=== PATIENT | male | born 1950 | race Caucasian/White ===

== ENCOUNTER 2020-01-12 16:18 | Inpatient (IN) | payer MEDICARE, OTHER, SELFPAY ==
[2020-01-12] VITALS (21 sets, daily range): BP systolic 162–216; BP diastolic 71–101; PULSE 75–97; RESP 12–32; TEMP 36.6–38.1; O2SAT 93–99; BMI 25.0
--- NOTE | 2020-01-12 16:24 | DI.RAD.S_ITS ---
PROCEDURE: XR CHEST 1V INDICATIONS: suspected sepsis TECHNIQUE: One view of the chest was acquired. COMPARISON: [facility], , CHEST 1 VIEW, 09/07/2012, 14:35. FINDINGS: Surgical changes and devices: Median sternotomy wires are present with unchanged appearance of fractured superior wires. Surgical clips in the mediastinum compatible with prior revascularization procedure. Lungs and pleura: Mild diffuse interstitial prominence and streaky left perihilar and left basilar opacities. No focal consolidations. No pleural effusions or pneumothorax. Mediastinum: Mediastinal contours appear stable. Heart size is normal. Bones and chest wall: No suspicious bony lesions. Overlying soft tissues appear unremarkable. IMPRESSION: Mild diffuse interstitial prominence with streaky left perihilar and left basilar opacities. Findings may represent atelectasis, although early developing airspace disease/pneumonia or aspiration may have a similar appearance. No focal consolidation. Dictated by: Rene Hardin M.D. on 01/12/2020 at 18:01 Approved by: Rene Hardin M.D. on 01/12/2020 at 18:03
--- NOTE | 2020-01-12 16:43 | ED_ITS ---
HPI - Fever <Sanjeev Montemayor MD - Last Filed: 01/27/20 09:11> General Chief Complaint: Fever Stated Complaint: fever / back pain Time Seen by Provider: 01/12/20 16:28 Source: patient and EMS Mode of arrival: EMS Limitations: no limitations History of Present Illness HPI Narrative: The patient was diagnosed with bladder cancer March 2019. He underwent prostatectomy, and neobladder was formed. Over last week he has developed dark colored urine. Since then he has developed right mid back pain. He has no abdominal pain. He has no nausea vomiting. He denies dental pain. He has no difficulty making a stream of urine. He developed fever today. His his oral intake is adequate. He has no nausea vomiting. He is drinking water. He denies headache, sore throat or cough. Additionally he has a history of hypertension, hyperlipidemia, diabetes, and coronary artery disease. He has few she undergone cardiac bypass. He is a former smoker, but quit about 25 years ago. He is visiting locally, his urologist and his medical records are located in [place], [place]. He has been in this region for several weeks. He was recently in [place]. He is hospitalist 2 days there for back pain. CT of the chest, abdomen pelvis reassuring, there are no acute findings. Related Data Home Medications Medication Instructions Recorded Confirmed Xarelto 2.5 mg PO BID 01/12/20 01/12/20 aspirin [Aspir-81] 81 mg PO DAILY 01/12/20 01/12/20 atorvastatin 40 mg PO BEDTIME 01/12/20 01/12/20 carvedilol 12.5 mg PO BID 01/12/20 01/12/20 cilostazol 100 mg PO BID 01/12/20 01/12/20 diltiazem HCl 120 mg PO DAILY 01/12/20 01/12/20 docusate calcium 240 mg PO BID 01/12/20 01/12/20 ezetimibe 10 mg PO DAILY 01/12/20 01/12/20 valsartan 80 mg PO DAILY 01/12/20 01/12/20 Previous Rx's Medication Instructions Recorded acetaminophen 650 mg PO Q6HR #30 tab 01/17/20 ampicillin 2 gram PO Q4H #248 cap 01/17/20 bisacodyl 10 mg MO DAILY #30 ea 01/17/20 gabapentin [Neurontin] 300 mg PO TID #90 cap 01/17/20 lidocaine 1 ea TOPICAL BEDTIME #30 ea 01/17/20 lidocaine 1 ea TOPICAL DAILY #30 ea 01/17/20 methocarbamol 750 mg PO QID PRN #120 tab 01/17/20 oxycodone 5 - 10 mg PO Q4HR PRN #15 tab 01/17/20 polyethylene glycol 3350 17 gm PO DAILY #30 ea 01/17/20 Allergies Allergy/AdvReac Type Severity Reaction Status Date / Time [id number] Reductase AdvReac Mild Rash Verified 01/12/20 16:28 Inhibitor Review of Systems <Sanjeev Montemayor MD - Last Filed: 01/27/20 09:11> Review of Systems ROS Unobtainable: All systems reviewed & are unremarkable except as noted in HPI and below Constitutional Constitutional: Denies chills, Reports fever(s), Denies lethargy and Denies weakness Eyes Comments: No complaints ENT Ears, Nose, Mouth, and Throat: Denies dizziness Comments: No complaints Cardiovascular Cardiovascular: Denies chest pain, Denies pedal edema and Denies dyspnea Respiratory Respiratory: Denies chest congestion, Denies cough and Denies dyspnea Gastrointestinal Gastrointestinal: Denies abdominal pain, Reports constipation (about 6 days), Denies diarrhea, Denies nausea and Denies vomiting Genitourinary Comments: Hematuria. No genital pain. No urgency or retention. Musculoskeletal Musculoskeletal: Reports back pain Integumentary/Breasts Skin/Breast: Denies pruritus, Denies erythema, Denies rash and Denies wounds Neurologic Neurologic: Denies confusion, Denies dizziness and Denies weakness Psychiatric Psychiatric: Denies anxiety and Denies confusion Patient History <Sanjeev Montemayor MD - Last Filed: 01/27/20 09:11> Medical History (Updated 01/15/20 @ 16:25 by Sanjeev Camacho DO) Bladder cancer (Acute) Coronary artery disease (Acute) Facet arthropathy, lumbar (Acute) History of CVA (cerebrovascular accident) (Acute) Hyperlipidemia (Acute) Hypertension (Acute) Multilevel foraminal stenosis (Acute) Peripheral vascular disease (Acute) Surgical History H/O prostatectomy (Acute) History of total cystectomy (Acute) Hx of CABG (Acute) Social History household members: spouse Smoking Status: Former smoker Smoking Status: Former smoker alcohol intake frequency: 0-2 drinks per day Substance Use Type: does not use Exam <Sanjeev Montemayor MD - Last Filed: 01/27/20 09:11> Initial Vital Signs Initial Vital Signs: Vital Signs Temperature 100.6 F H 01/12/20 16:22 Pulse Rate 75 01/12/20 16:22 Respiratory Rate 24 01/12/20 16:22 Blood Pressure 193/90 H 01/12/20 16:22 Pulse Oximetry 96 01/12/20 16:22 Const General: cooperative and well developed Nutritional Appearance: well nourished HENMT Head: normal to inspection, normocephalic and atraumatic Eyes Conjunctivae: conjunctivae normal Sclera: sclerae normal Neck Neck: No lymphadenopathy and No JVD Resp Effort & Inspection: normal respiratory effort, able to speak in complete sentences, no respiratory distress and no use of accessory muscles Auscultation: clear to auscultation bilaterally, no rales, no rhonchi and no wheezes Cardio Rate: regular rate Rhythm: regular rhythm Heart Sounds: S1 normal, S2 normal, no click, no gallops, no murmurs and no rubs Pulses: normal peripheral pulses GI Inspection: non-distended Palpation: soft, no hepatosplenomegaly, No guarding, No pulsatile mass and No tender Auscultation: normal bowel sounds Back/Spine/Pelvis Back: CVA tenderness right Skin General: no rashes or lesions noted, No jaundice and No petechiae Neuro General: patient alert, patient oriented x3, gait normal and no focal motor deficits Speech: speech normal Extrem General: No calf tenderness and No edema <Henry Mejia DO - Last Filed: 01/13/20 00:06> Initial Vital Signs Initial Vital Signs: Vital Signs Temperature 100.6 F H 01/12/20 16:22 Pulse Rate 75 01/12/20 16:22 Respiratory Rate 24 01/12/20 16:22 Blood Pressure 193/90 H 01/12/20 16:22 Pulse Oximetry 96 01/12/20 16:22 Course <Sanjeev Montemayor MD - Last Filed: 01/27/20 09:11> Course Course Narrative: Clinically, the patient has pyelonephritis. He has urinary changes, fever and right back pain. A clean urine sample is not obtained, he has a neobladder and urinates into a diaper. A urine culture has been sent. IV fluids and Rocephin given. There is no suggestion of sepsis. He complains the back pain is so severe he cannot stand. There has been no acute injury associated with the back pain. Also note, he has hyponatremia. His sodium level was 136 with the recent admission at [facility]. I have discussed the situation with the hospitalist, REJI Koroma. AP CT is suggested, I ordered the CT. I have also discussed the situation with my your partner, Dr. Mejia. He will follow-up with the CT. Final disposition is pending. Orders Ordered: Discontinued Medications Acetaminophen (Tylenol) 650 mg PO Q4H PRN PRN Reason: Back Pain Last Admin: 01/15/20 13:27 Dose: 650 mg Documented by: Admin: 01/15/20 09:25 Dose: 650 mg Documented by: Admin: 01/15/20 05:34 Dose: 650 mg Documented by: Admin: 01/14/20 22:32 Dose: 650 mg Documented by: Admin: 01/14/20 18:57 Dose: 650 mg Documented by: Admin: 01/14/20 14:52 Dose: 650 mg Documented by: Admin: 01/14/20 11:00 Dose: 650 mg Documented by: Admin: 01/13/20 16:09 Dose: 650 mg Documented by: Admin: 01/13/20 11:26 Dose: 650 mg Documented by: Admin: 01/13/20 00:25 Dose: 650 mg Documented by: SACHA Acetaminophen (Tylenol) 650 mg PO Q6HR [facility] Last Admin: 01/17/20 12:50 Dose: 650 mg Documented by: Admin: 01/17/20 06:16 Dose: 650 mg Documented by: Admin: 01/17/20 00:22 Dose: 650 mg Documented by: Admin: 01/16/20 18:45 Dose: 650 mg Documented by: Admin: 01/16/20 12:12 Dose: 650 mg Documented by: Admin: 01/16/20 06:27 Dose: 650 mg Documented by: Admin: 01/16/20 00:33 Dose: 650 mg Documented by: Admin: 01/15/20 18:16 Dose: 650 mg Documented by: LAZARA Funk Hydrox/Mg Hydrox/Simethicone (Maalox Plus) 30 ml PO Q4HR PRN PRN Reason: Dyspepsia Last Admin: 01/13/20 20:54 Dose: 30 ml Documented by: SINDI Aspirin (Aspirin Ec) 81 mg PO DAILY [facility] Last Admin: 01/17/20 09:04 Dose: 81 mg Documented by: Admin: 01/16/20 08:50 Dose: 81 mg Documented by: Admin: 01/15/20 09:25 Dose: 81 mg Documented by: Admin: 01/14/20 09:14 Dose: 81 mg Documented by: Admin: 01/13/20 10:16 Dose: 81 mg Documented by: TEODORO Atorvastatin Calcium (Lipitor) 40 mg PO BEDTIME [facility] Last Admin: 01/16/20 20:35 Dose: 40 mg Documented by: Admin: 01/15/20 20:41 Dose: 40 mg Documented by: Admin: 01/14/20 20:44 Dose: 40 mg Documented by: Admin: 01/13/20 20:55 Dose: 40 mg Documented by: Admin: 01/12/20 23:25 Dose: 40 mg Documented by: MARIELA Baclofen (Lioresal) 10 mg PO TID [facility] Bisacodyl (Dulcolax) 10 mg MO NOW ONE Stop: 01/12/20 22:35 Last Admin: 01/13/20 05:35 Dose: Not Given Documented by: TEODORO Bisacodyl (Dulcolax) 10 mg MO NOW ONE Stop: 01/12/20 23:51 Last Admin: 01/13/20 02:29 Dose: Not Given Documented by: SACHA Bisacodyl (Dulcolax) 10 mg MO NOW ONE Stop: 01/13/20 05:16 Last Admin: 01/13/20 05:35 Dose: 10 mg Documented by: TEODORO Bisacodyl (Dulcolax) 10 mg MO NOW ONE Stop: 01/13/20 14:55 Last Admin: 01/13/20 16:09 Dose: 10 mg Documented by: SINDI Bisacodyl (Dulcolax) 10 mg PO NOW ONE Stop: 01/13/20 15:01 Last Admin: 01/13/20 16:09 Dose: 10 mg Documented by: SINDI Bisacodyl (Dulcolax) 10 mg MO PRN PRN PRN Reason: Constipation Last Admin: 01/14/20 14:52 Dose: 10 mg Documented by: SINDI Bisacodyl (Dulcolax) 10 mg MO DAILY [facility] Last Admin: 01/17/20 09:04 Dose: 10 mg Documented by: Admin: 01/16/20 10:11 Dose: 10 mg Documented by: Admin: 01/15/20 09:25 Dose: 10 mg Documented by: SINDI Carvedilol (Coreg) 12.5 mg PO BIDWM [facility] Last Admin: 01/17/20 09:03 Dose: 12.5 mg Documented by: Admin: 01/16/20 16:34 Dose: 12.5 mg Documented by: Admin: 01/16/20 08:48 Dose: 12.5 mg Documented by: Admin: 01/15/20 16:12 Dose: 12.5 mg Documented by: Admin: 01/15/20 09:26 Dose: 12.5 mg Documented by: Admin: 01/14/20 17:03 Dose: 12.5 mg Documented by: Admin: 01/14/20 09:14 Dose: 12.5 mg Documented by: Admin: 01/13/20 17:17 Dose: 12.5 mg Documented by: Admin: 01/13/20 08:07 Dose: 12.5 mg Documented by: Admin: 01/12/20 23:25 Dose: 12.5 mg Documented by: RHEENAN Cilostazol (Pletal) 100 mg PO BID [facility] Last Admin: 01/17/20 09:04 Dose: 100 mg Documented by: Admin: 01/16/20 20:35 Dose: 100 mg Documented by: Admin: 01/16/20 08:49 Dose: 100 mg Documented by: Admin: 01/15/20 20:43 Dose: 100 mg Documented by: Admin: 01/15/20 09:28 Dose: 100 mg Documented by: Admin: 01/14/20 20:46 Dose: 100 mg Documented by: Admin: 01/14/20 09:16 Dose: 100 mg Documented by: Admin: 01/13/20 21:05 Dose: 100 mg Documented by: Admin: 01/13/20 09:16 Dose: 100 mg Documented by: TEODORO Dextrose (D50w) 25 gm IV PRN PRN; Protocol PRN Reason: Hypoglycemia Diazepam (Valium) 5 mg PO Q6HR PRN PRN Reason: Back Pain Last Admin: 01/16/20 08:49 Dose: 5 mg Documented by: Admin: 01/16/20 02:29 Dose: 5 mg Documented by: Admin: 01/14/20 20:44 Dose: 5 mg Documented by: JERRY Diltiazem HCl (Cardizem Cd) 120 mg PO DAILY [facility] Last Admin: 01/17/20 09:04 Dose: 120 mg Documented by: Admin: 01/16/20 08:49 Dose: 120 mg Documented by: Admin: 01/15/20 09:27 Dose: 120 mg Documented by: Admin: 01/14/20 09:16 Dose: 120 mg Documented by: Admin: 01/13/20 09:16 Dose: 120 mg Documented by: TEODORO Docusate Sodium (Colace) 250 mg PO BID [facility] Last Admin: 01/15/20 10:12 Dose: Not Given Documented by: Admin: 01/14/20 20:43 Dose: 250 mg Documented by: Admin: 01/14/20 09:16 Dose: 250 mg Documented by: Admin: 01/13/20 20:55 Dose: 250 mg Documented by: Admin: 01/13/20 09:16 Dose: 250 mg Documented by: TEODORO Docusate Sodium (Colace) 100 mg PO BID [facility] Last Admin: 01/15/20 10:12 Dose: Not Given Documented by: Admin: 01/14/20 20:44 Dose: 100 mg Documented by: JERRY Docusate Sodium (Colace) 250 mg PO DAILY [facility] Last Admin: 01/17/20 09:04 Dose: 250 mg Documented by: Admin: 01/16/20 08:49 Dose: 250 mg Documented by: PRISCILLA Ezetimibe (Zetia) 10 mg PO DAILY [facility] Last Admin: 01/17/20 09:04 Dose: 10 mg Documented by: Admin: 01/16/20 08:49 Dose: 10 mg Documented by: Admin: 01/15/20 09:27 Dose: 10 mg Documented by: Admin: 01/14/20 09:16 Dose: 10 mg Documented by: Admin: 01/13/20 09:17 Dose: 10 mg Documented by: TEODORO Gabapentin (Neurontin) 300 mg PO TID [facility] Last Admin: 01/17/20 14:54 Dose: Not Given Documented by: Admin: 01/17/20 09:03 Dose: 300 mg Documented by: Admin: 01/16/20 20:37 Dose: 300 mg Documented by: Admin: 01/16/20 15:02 Dose: 300 mg Documented by: Admin: 01/16/20 08:49 Dose: 300 mg Documented by: Admin: 01/15/20 20:42 Dose: 300 mg Documented by: Admin: 01/15/20 14:54 Dose: 300 mg Documented by: Admin: 01/15/20 09:25 Dose: 300 mg Documented by: Admin: 01/14/20 20:44 Dose: 300 mg Documented by: JERRY Hydralazine HCl (Apresoline) 10 mg IV Q6HR PRN PRN Reason: Hypertension Hydromorphone HCl (Dilaudid) 1 mg IV NOW ONE Stop: 01/12/20 19:36 Last Admin: 01/12/20 19:47 Dose: 1 mg Documented by: MARLEE Hydromorphone HCl (Dilaudid) 0.5 mg IV Q4HR PRN PRN Reason: Pain, Moderate (4-6) Last Admin: 01/16/20 12:12 Dose: 0.5 mg Documented by: Admin: 01/13/20 09:13 Dose: 0.5 mg Documented by: TEODORO Hydromorphone HCl (Dilaudid) 1 mg IV Q4HR PRN PRN Reason: Pain, Severe (7-10) Last Admin: 01/15/20 16:13 Dose: 1 mg Documented by: Admin: 01/15/20 10:29 Dose: 1 mg Documented by: Admin: 01/14/20 17:43 Dose: 1 mg Documented by: Admin: 01/14/20 08:09 Dose: 1 mg Documented by: Admin: 01/13/20 13:56 Dose: 1 mg Documented by: Admin: 01/13/20 09:20 Dose: 1 mg Documented by: Admin: 01/13/20 05:33 Dose: 1 mg Documented by: Admin: 01/12/20 23:27 Dose: 1 mg Documented by: MARIELA Sodium Chloride (Normal Saline 0.9%) 1,000 mls @ 1,000 mls/hr IV BOLUS ONE Stop: 01/12/20 17:23 Last Infusion: 01/12/20 18:02 Dose: 0 mls/hr Documented by: Admin: 01/12/20 16:57 Dose: 1,000 mls/hr Documented by: NICA Sodium Chloride (Normal Saline 0.9%) 1,000 mls @ 250 mls/hr IV CONT WILBER Last Infusion: 01/12/20 22:20 Dose: 0 mls/hr Documented by: Admin: 01/12/20 18:02 Dose: 250 mls/hr Documented by: NICA Ceftriaxone Sodium/Dextrose (Rocephin) 1 gm in 50 mls @ 100 mls/hr IV NOW ONE Stop: 01/12/20 17:12 Last Infusion: 01/12/20 17:26 Dose: 0 mls/hr Documented by: Admin: 01/12/20 16:57 Dose: 100 mls/hr Documented by: NICA Sodium Chloride (Normal Saline 0.9%) 1,000 mls @ 125 mls/hr IV CONT WILBER Last Infusion: 01/13/20 19:47 Dose: 125 mls/hr Documented by: Admin: 01/13/20 07:45 Dose: 125 mls/hr Documented by: Infusion: 01/13/20 07:24 Dose: 125 mls/hr Documented by: Admin: 01/12/20 23:24 Dose: 125 mls/hr Documented by: MARIELA Piperacillin/Tazobactam/Dextrose (Zosyn) 3.375 gm in 50 mls @ 100 mls/hr IV Q8H WILBER Last Admin: 01/13/20 16:10 Dose: 100 mls/hr Documented by: Infusion: 01/13/20 08:55 Dose: 0 mls/hr Documented by: Infusion: 01/13/20 08:05 Dose: 100 mls/hr Documented by: Admin: 01/13/20 07:45 Dose: 100 mls/hr Documented by: Infusion: 01/13/20 00:50 Dose: 100 mls/hr Documented by: Admin: 01/13/20 00:20 Dose: 100 mls/hr Documented by: SACHA Ampicillin Sodium 2,000 mg/ (Sodium Chloride) 100 mls @ 200 mls/hr IV Q4H WILBER Stop: 01/19/20 21:00 Last Infusion: 01/17/20 14:27 Dose: 0 mls/hr Documented by: Admin: 01/17/20 12:51 Dose: 200 mls/hr Documented by: Infusion: 01/17/20 12:13 Dose: 0 mls/hr Documented by: Admin: 01/17/20 09:03 Dose: 200 mls/hr Documented by: Infusion: 01/17/20 04:17 Dose: 200 mls/hr Documented by: Admin: 01/17/20 03:47 Dose: 200 mls/hr Documented by: Infusion: 01/17/20 00:54 Dose: 200 mls/hr Documented by: Admin: 01/17/20 00:24 Dose: 200 mls/hr Documented by: Infusion: 01/16/20 21:04 Dose: 200 mls/hr Documented by: Admin: 01/16/20 20:34 Dose: 200 mls/hr Documented by: Infusion: 01/16/20 17:05 Dose: 0 mls/hr Documented by: Admin: 01/16/20 16:33 Dose: 200 mls/hr Documented by: Infusion: 01/16/20 15:02 Dose: 0 mls/hr Documented by: Admin: 01/16/20 13:00 Dose: 200 mls/hr Documented by: Infusion: 01/16/20 12:02 Dose: 0 mls/hr Documented by: Admin: 01/16/20 08:49 Dose: 200 mls/hr Documented by: Infusion: 01/16/20 06:41 Dose: 0 mls/hr Documented by: Admin: 01/16/20 04:27 Dose: 200 mls/hr Documented by: Infusion: 01/16/20 04:15 Dose: 0 mls/hr Documented by: Admin: 01/16/20 00:35 Dose: 200 mls/hr Documented by: Infusion: 01/15/20 21:32 Dose: 200 mls/hr Documented by: Admin: 01/15/20 20:43 Dose: 200 mls/hr Documented by: Infusion: 01/15/20 17:38 Dose: 200 mls/hr Documented by: Admin: 01/15/20 16:38 Dose: 200 mls/hr Documented by: Infusion: 01/15/20 15:30 Dose: 200 mls/hr Documented by: Admin: 01/15/20 12:13 Dose: 200 mls/hr Documented by: Infusion: 01/15/20 09:56 Dose: 200 mls/hr Documented by: Admin: 01/15/20 09:26 Dose: 200 mls/hr Documented by: Infusion: 01/15/20 04:52 Dose: 0 mls/hr Documented by: Admin: 01/15/20 04:22 Dose: 200 mls/hr Documented by: Infusion: 01/15/20 00:20 Dose: 0 mls/hr Documented by: Admin: 01/14/20 23:49 Dose: 200 mls/hr Documented by: Infusion: 01/14/20 21:24 Dose: 0 mls/hr Documented by: Admin: 01/14/20 20:45 Dose: 200 mls/hr Documented by: Infusion: 01/14/20 16:50 Dose: 0 mls/hr Documented by: Admin: 01/14/20 15:59 Dose: 200 mls/hr Documented by: Infusion: 01/14/20 15:46 Dose: 0 mls/hr Documented by: Admin: 01/14/20 12:07 Dose: 200 mls/hr Documented by: Infusion: 01/14/20 09:44 Dose: 200 mls/hr Documented by: Admin: 01/14/20 09:14 Dose: 200 mls/hr Documented by: Infusion: 01/14/20 04:54 Dose: 200 mls/hr Documented by: Admin: 01/14/20 04:24 Dose: 200 mls/hr Documented by: Infusion: 01/14/20 04:22 Dose: 200 mls/hr Documented by: Admin: 01/14/20 00:32 Dose: 200 mls/hr Documented by: Infusion: 01/13/20 21:40 Dose: 200 mls/hr Documented by: Admin: 01/13/20 21:10 Dose: 200 mls/hr Documented by: SINDI Sodium Chloride (Normal Saline 0.9%) 1,000 mls @ 100 mls/hr IV CONT WILBER Stop: 01/16/20 04:29 Last Admin: 01/15/20 18:49 Dose: 100 mls/hr Documented by: LAZARA Sodium Chloride (Normal Saline 0.9%) 1,000 mls @ 100 mls/hr IV CONT WILBER Last Admin: 01/17/20 06:21 Dose: 100 mls/hr Documented by: Infusion: 01/17/20 04:45 Dose: 100 mls/hr Documented by: Admin: 01/16/20 18:45 Dose: 100 mls/hr Documented by: GPEREZ Insulin Aspart (Novolog Flexpen) 0 unit SUBCUT ACHS WILEBR; Protocol Last Admin: 01/17/20 12:12 Dose: Not Given Documented by: Admin: 01/17/20 10:57 Dose: Not Given Documented by: Admin: 01/16/20 20:37 Dose: Not Given Documented by: Admin: 01/16/20 16:32 Dose: 1 unit Documented by: HELDER Cosigned by: LEILANI Admin: 01/16/20 12:02 Dose: Not Given Documented by: Admin: 01/16/20 08:50 Dose: Not Given Documented by: Admin: 01/15/20 20:56 Dose: Not Given Documented by: Admin: 01/15/20 16:51 Dose: Not Given Documented by: Admin: 01/15/20 12:11 Dose: Not Given Documented by: Admin: 01/15/20 09:17 Dose: Not Given Documented by: Admin: 01/14/20 21:06 Dose: Not Given Documented by: Admin: 01/14/20 16:50 Dose: Not Given Documented by: Admin: 01/14/20 12:04 Dose: Not Given Documented by: Admin: 01/14/20 08:55 Dose: Not Given Documented by: Admin: 01/13/20 21:03 Dose: Not Given Documented by: Admin: 01/13/20 17:18 Dose: Not Given Documented by: Admin: 01/13/20 11:58 Dose: Not Given Documented by: Admin: 01/13/20 07:48 Dose: Not Given Documented by: TEODORO Lidocaine (Lidoderm) 1 each TOP DAILY [facility] Last Admin: 01/17/20 09:03 Dose: 1 each Documented by: Admin: 01/16/20 08:48 Dose: 1 each Documented by: Admin: 01/15/20 09:27 Dose: 1 each Documented by: Admin: 01/14/20 05:26 Dose: 1 each Documented by: Admin: 01/13/20 09:13 Dose: 1 each Documented by: TEODORO Lidocaine (Lidoderm (Remove Patch)) 1 each TOP BEDTIME WILBER Last Admin: 01/16/20 20:37 Dose: Not Given Documented by: Admin: 01/15/20 22:14 Dose: Not Given Documented by: Admin: 01/14/20 20:45 Dose: Not Given Documented by: Admin: 01/13/20 21:03 Dose: 1 each Documented by: SINDI Magnesium Citrate (Magnesium Citrate) 150 ml PO NOW ONE Stop: 01/13/20 15:01 Last Admin: 01/13/20 16:11 Dose: 150 ml Documented by: SINDI Methocarbamol (Robaxin) 750 mg PO QID PRN PRN Reason: Muscle Spasm Last Admin: 01/15/20 13:27 Dose: 750 mg Documented by: Admin: 01/15/20 05:35 Dose: 750 mg Documented by: Admin: 01/14/20 18:56 Dose: 750 mg Documented by: Admin: 01/14/20 11:00 Dose: 750 mg Documented by: SINDI Naloxone HCl (Narcan) 0.2 mg IV Q2MIN PRN PRN Reason: Opiate Reversal Ondansetron HCl (Zofran) 4 mg IV Q8HR PRN PRN Reason: Nausea And Vomiting Oxycodone HCl (Oxycodone) 10 mg PO Q4HR PRN PRN Reason: Pain, Moderate (4-6) Last Admin: 01/14/20 10:59 Dose: 10 mg Documented by: Admin: 01/14/20 06:51 Dose: 10 mg Documented by: Admin: 01/13/20 20:54 Dose: 10 mg Documented by: Admin: 01/13/20 16:08 Dose: 10 mg Documented by: SINDI Oxycodone HCl (Percolone) 10 mg PO Q4H PRN PRN Reason: Pain, Moderate (4-6) Last Admin: 01/17/20 12:50 Dose: 10 mg Documented by: Admin: 01/17/20 09:04 Dose: 10 mg Documented by: Admin: 01/16/20 22:56 Dose: 10 mg Documented by: Admin: 01/16/20 10:11 Dose: 10 mg Documented by: Admin: 01/16/20 06:26 Dose: 10 mg Documented by: Admin: 01/16/20 02:29 Dose: 10 mg Documented by: Admin: 01/15/20 20:05 Dose: 10 mg Documented by: Admin: 01/15/20 13:26 Dose: 10 mg Documented by: Admin: 01/15/20 09:25 Dose: 10 mg Documented by: Admin: 01/15/20 05:34 Dose: 10 mg Documented by: Admin: 01/14/20 22:32 Dose: 10 mg Documented by: Admin: 01/14/20 18:57 Dose: 10 mg Documented by: Admin: 01/14/20 14:52 Dose: 10 mg Documented by: SINDI Oxycodone HCl (Percolone) 5 mg PO Q4HR PRN PRN Reason: Pain, Moderate (4-6) Last Admin: 01/16/20 18:45 Dose: 5 mg Documented by: HELDER Polyethylene Glycol (Miralax) 17 gm PO DAILY [facility] Last Admin: 01/17/20 09:03 Dose: 17 gm Documented by: Admin: 01/16/20 08:49 Dose: 17 gm Documented by: Admin: 01/15/20 09:27 Dose: 17 gm Documented by: Admin: 01/14/20 09:15 Dose: 17 gm Documented by: Admin: 01/13/20 10:18 Dose: 17 gm Documented by: TEODORO Polyethylene Glycol (Miralax) 17 gm PO DAILY [facility] Last Admin: 01/15/20 10:12 Dose: Not Given Documented by: Admin: 01/14/20 15:03 Dose: 17 gm Documented by: SINDI Rivaroxaban (Xarelto) 2.5 mg PO BID [facility] Last Admin: 01/17/20 09:04 Dose: 2.5 mg Documented by: Admin: 01/16/20 20:38 Dose: 2.5 mg Documented by: Admin: 01/16/20 08:50 Dose: 2.5 mg Documented by: Admin: 01/15/20 20:41 Dose: 2.5 mg Documented by: Admin: 01/15/20 09:27 Dose: 2.5 mg Documented by: Admin: 01/14/20 20:44 Dose: 2.5 mg Documented by: Admin: 01/14/20 09:15 Dose: 2.5 mg Documented by: Admin: 01/13/20 20:55 Dose: 2.5 mg Documented by: Admin: 01/13/20 10:16 Dose: 2.5 mg Documented by: TEODORO Sodium Chloride (Normal Saline 0.9% Flush) 10 ml IV PRN PRN PRN Reason: Flush Last Admin: 01/16/20 16:34 Dose: 10 ml Documented by: HELDER Sodium Chloride (Normal Saline 0.9% Flush) 10 ml IV PRN PRN PRN Reason: Flush Last Admin: 01/15/20 04:22 Dose: 10 ml Documented by: Admin: 01/14/20 23:45 Dose: 10 ml Documented by: KIESHA Valsartan (Diovan) 80 mg PO DAILY [facility] Last Admin: 01/17/20 09:04 Dose: 80 mg Documented by: Admin: 01/16/20 08:49 Dose: 80 mg Documented by: Admin: 01/15/20 09:27 Dose: 80 mg Documented by: Admin: 01/14/20 09:16 Dose: 80 mg Documented by: Admin: 01/13/20 09:17 Dose: 80 mg Documented by: TEODORO Vital Signs Vital signs: Vital Signs - 8 hr 01/12/20 16:22 01/12/20 16:45 01/12/20 16:46 Temperature 100.6 F H Pulse Rate 75 76 78 Respiratory Rate 24 Blood Pressure 193/90 H 181/81 H Pulse Oximetry 96 99 99 01/12/20 17:00 01/12/20 17:30 01/12/20 18:00 Temperature Pulse Rate 81 78 82 Respiratory Rate 29 H 32 H Blood Pressure 180/84 H 184/82 H Pulse Oximetry 98 99 98 01/12/20 18:01 01/12/20 18:30 01/12/20 18:31 Temperature Pulse Rate 83 77 80 Respiratory Rate 31 H Blood Pressure 216/101 H 184/79 H Pulse Oximetry 99 98 98 01/12/20 19:00 01/12/20 19:30 01/12/20 19:57 Temperature 99.4 F Pulse Rate 79 82 Respiratory Rate 19 22 Blood Pressure 183/84 H 193/87 H Pulse Oximetry 98 97 01/12/20 20:13 01/12/20 20:23 01/12/20 20:30 Temperature 97.8 F Pulse Rate 79 77 77 Respiratory Rate 12 16 15 Blood Pressure 168/73 H 162/71 H Pulse Oximetry 96 96 94 01/12/20 21:00 01/12/20 21:30 Temperature Pulse Rate 80 76 Respiratory Rate 25 H 17 Blood Pressure 165/85 H 174/80 H Pulse Oximetry 98 96 <Henry Mejia DO - Last Filed: 01/13/20 00:06> Orders Ordered: Discontinued Medications Acetaminophen (Tylenol) 650 mg PO Q4H PRN PRN Reason: Back Pain Last Admin: 01/15/20 13:27 Dose: 650 mg Documented by: Admin: 01/15/20 09:25 Dose: 650 mg Documented by: Admin: 01/15/20 05:34 Dose: 650 mg Documented by: Admin: 01/14/20 22:32 Dose: 650 mg Documented by: Admin: 01/14/20 18:57 Dose: 650 mg Documented by: Admin: 01/14/20 14:52 Dose: 650 mg Documented by: Admin: 01/14/20 11:00 Dose: 650 mg Documented by: Admin: 01/13/20 16:09 Dose: 650 mg Documented by: Admin: 01/13/20 11:26 Dose: 650 mg Documented by: Admin: 01/13/20 00:25 Dose: 650 mg Documented by: SACHA Acetaminophen (Tylenol) 650 mg PO Q6HR [facility] Last Admin: 01/17/20 12:50 Dose: 650 mg Documented by: Admin: 01/17/20 06:16 Dose: 650 mg Documented by: Admin: 01/17/20 00:22 Dose: 650 mg Documented by: Admin: 01/16/20 18:45 Dose: 650 mg Documented by: Admin: 01/16/20 12:12 Dose: 650 mg Documented by: Admin: 01/16/20 06:27 Dose: 650 mg Documented by: Admin: 01/16/20 00:33 Dose: 650 mg Documented by: Admin: 01/15/20 18:16 Dose: 650 mg Documented by: LAZARA Funk Hydrox/Mg Hydrox/Simethicone (Maalox Plus) 30 ml PO Q4HR PRN PRN Reason: Dyspepsia Last Admin: 01/13/20 20:54 Dose: 30 ml Documented by: SINDI Aspirin (Aspirin Ec) 81 mg PO DAILY [facility] Last Admin: 01/17/20 09:04 Dose: 81 mg Documented by: Admin: 01/16/20 08:50 Dose: 81 mg Documented by: Admin: 01/15/20 09:25 Dose: 81 mg Documented by: Admin: 01/14/20 09:14 Dose: 81 mg Documented by: Admin: 01/13/20 10:16 Dose: 81 mg Documented by: TEODORO Atorvastatin Calcium (Lipitor) 40 mg PO BEDTIME [facility] Last Admin: 01/16/20 20:35 Dose: 40 mg Documented by: Admin: 01/15/20 20:41 Dose: 40 mg Documented by: Admin: 01/14/20 20:44 Dose: 40 mg Documented by: Admin: 01/13/20 20:55 Dose: 40 mg Documented by: Admin: 01/12/20 23:25 Dose: 40 mg Documented by: MARIELA Baclofen (Lioresal) 10 mg PO TID [facility] Bisacodyl (Dulcolax) 10 mg MO NOW ONE Stop: 01/12/20 22:35 Last Admin: 01/13/20 05:35 Dose: Not Given Documented by: TEODORO Bisacodyl (Dulcolax) 10 mg MO NOW ONE Stop: 01/12/20 23:51 Last Admin: 01/13/20 02:29 Dose: Not Given Documented by: SACHA Bisacodyl (Dulcolax) 10 mg MO NOW ONE Stop: 01/13/20 05:16 Last Admin: 01/13/20 05:35 Dose: 10 mg Documented by: TEODORO Bisacodyl (Dulcolax) 10 mg MO NOW ONE Stop: 01/13/20 14:55 Last Admin: 01/13/20 16:09 Dose: 10 mg Documented by: SINDI Bisacodyl (Dulcolax) 10 mg PO NOW ONE Stop: 01/13/20 15:01 Last Admin: 01/13/20 16:09 Dose: 10 mg Documented by: SINDI Bisacodyl (Dulcolax) 10 mg MO PRN PRN PRN Reason: Constipation Last Admin: 01/14/20 14:52 Dose: 10 mg Documented by: SINDI Bisacodyl (Dulcolax) 10 mg MO DAILY [facility] Last Admin: 01/17/20 09:04 Dose: 10 mg Documented by: Admin: 01/16/20 10:11 Dose: 10 mg Documented by: Admin: 01/15/20 09:25 Dose: 10 mg Documented by: SINDI Carvedilol (Coreg) 12.5 mg PO BIDWM [facility] Last Admin: 01/17/20 09:03 Dose: 12.5 mg Documented by: Admin: 01/16/20 16:34 Dose: 12.5 mg Documented by: Admin: 01/16/20 08:48 Dose: 12.5 mg Documented by: Admin: 01/15/20 16:12 Dose: 12.5 mg Documented by: Admin: 01/15/20 09:26 Dose: 12.5 mg Documented by: Admin: 01/14/20 17:03 Dose: 12.5 mg Documented by: Admin: 01/14/20 09:14 Dose: 12.5 mg Documented by: Admin: 01/13/20 17:17 Dose: 12.5 mg Documented by: Admin: 01/13/20 08:07 Dose: 12.5 mg Documented by: Admin: 01/12/20 23:25 Dose: 12.5 mg Documented by: RHEENAN Cilostazol (Pletal) 100 mg PO BID [facility] Last Admin: 01/17/20 09:04 Dose: 100 mg Documented by: Admin: 01/16/20 20:35 Dose: 100 mg Documented by: Admin: 01/16/20 08:49 Dose: 100 mg Documented by: Admin: 01/15/20 20:43 Dose: 100 mg Documented by: Admin: 01/15/20 09:28 Dose: 100 mg Documented by: Admin: 01/14/20 20:46 Dose: 100 mg Documented by: Admin: 01/14/20 09:16 Dose: 100 mg Documented by: Admin: 01/13/20 21:05 Dose: 100 mg Documented by: Admin: 01/13/20 09:16 Dose: 100 mg Documented by: TEODORO Dextrose (D50w) 25 gm IV PRN PRN; Protocol PRN Reason: Hypoglycemia Diazepam (Valium) 5 mg PO Q6HR PRN PRN Reason: Back Pain Last Admin: 01/16/20 08:49 Dose: 5 mg Documented by: Admin: 01/16/20 02:29 Dose: 5 mg Documented by: Admin: 01/14/20 20:44 Dose: 5 mg Documented by: JERRY Diltiazem HCl (Cardizem Cd) 120 mg PO DAILY [facility] Last Admin: 01/17/20 09:04 Dose: 120 mg Documented by: Admin: 01/16/20 08:49 Dose: 120 mg Documented by: Admin: 01/15/20 09:27 Dose: 120 mg Documented by: Admin: 01/14/20 09:16 Dose: 120 mg Documented by: Admin: 01/13/20 09:16 Dose: 120 mg Documented by: TEODORO Docusate Sodium (Colace) 250 mg PO BID [facility] Last Admin: 01/15/20 10:12 Dose: Not Given Documented by: Admin: 01/14/20 20:43 Dose: 250 mg Documented by: Admin: 01/14/20 09:16 Dose: 250 mg Documented by: Admin: 01/13/20 20:55 Dose: 250 mg Documented by: Admin: 01/13/20 09:16 Dose: 250 mg Documented by: TEODORO Docusate Sodium (Colace) 100 mg PO BID [facility] Last Admin: 01/15/20 10:12 Dose: Not Given Documented by: Admin: 01/14/20 20:44 Dose: 100 mg Documented by: JERRY Docusate Sodium (Colace) 250 mg PO DAILY [facility] Last Admin: 01/17/20 09:04 Dose: 250 mg Documented by: Admin: 01/16/20 08:49 Dose: 250 mg Documented by: PRISCILLA Ezetimibe (Zetia) 10 mg PO DAILY [facility] Last Admin: 01/17/20 09:04 Dose: 10 mg Documented by: Admin: 01/16/20 08:49 Dose: 10 mg Documented by: Admin: 01/15/20 09:27 Dose: 10 mg Documented by: Admin: 01/14/20 09:16 Dose: 10 mg Documented by: Admin: 01/13/20 09:17 Dose: 10 mg Documented by: TEODORO Gabapentin (Neurontin) 300 mg PO TID [facility] Last Admin: 01/17/20 14:54 Dose: Not Given Documented by: Admin: 01/17/20 09:03 Dose: 300 mg Documented by: Admin: 01/16/20 20:37 Dose: 300 mg Documented by: Admin: 01/16/20 15:02 Dose: 300 mg Documented by: Admin: 01/16/20 08:49 Dose: 300 mg Documented by: Admin: 01/15/20 20:42 Dose: 300 mg Documented by: Admin: 01/15/20 14:54 Dose: 300 mg Documented by: Admin: 01/15/20 09:25 Dose: 300 mg Documented by: Admin: 01/14/20 20:44 Dose: 300 mg Documented by: JERRY Hydralazine HCl (Apresoline) 10 mg IV Q6HR PRN PRN Reason: Hypertension Hydromorphone HCl (Dilaudid) 1 mg IV NOW ONE Stop: 01/12/20 19:36 Last Admin: 01/12/20 19:47 Dose: 1 mg Documented by: MARLEE Hydromorphone HCl (Dilaudid) 0.5 mg IV Q4HR PRN PRN Reason: Pain, Moderate (4-6) Last Admin: 01/16/20 12:12 Dose: 0.5 mg Documented by: Admin: 01/13/20 09:13 Dose: 0.5 mg Documented by: TEODORO Hydromorphone HCl (Dilaudid) 1 mg IV Q4HR PRN PRN Reason: Pain, Severe (7-10) Last Admin: 01/15/20 16:13 Dose: 1 mg Documented by: Admin: 01/15/20 10:29 Dose: 1 mg Documented by: Admin: 01/14/20 17:43 Dose: 1 mg Documented by: Admin: 01/14/20 08:09 Dose: 1 mg Documented by: Admin: 01/13/20 13:56 Dose: 1 mg Documented by: Admin: 01/13/20 09:20 Dose: 1 mg Documented by: Admin: 01/13/20 05:33 Dose: 1 mg Documented by: Admin: 01/12/20 23:27 Dose: 1 mg Documented by: MARIELA Sodium Chloride (Normal Saline 0.9%) 1,000 mls @ 1,000 mls/hr IV BOLUS ONE Stop: 01/12/20 17:23 Last Infusion: 01/12/20 18:02 Dose: 0 mls/hr Documented by: Admin: 01/12/20 16:57 Dose: 1,000 mls/hr Documented by: NICA Sodium Chloride (Normal Saline 0.9%) 1,000 mls @ 250 mls/hr IV CONT [facility] Last Infusion: 01/12/20 22:20 Dose: 0 mls/hr Documented by: Admin: 01/12/20 18:02 Dose: 250 mls/hr Documented by: NICA Ceftriaxone Sodium/Dextrose (Rocephin) 1 gm in 50 mls @ 100 mls/hr IV NOW ONE Stop: 01/12/20 17:12 Last Infusion: 01/12/20 17:26 Dose: 0 mls/hr Documented by: Admin: 01/12/20 16:57 Dose: 100 mls/hr Documented by: NICA Sodium Chloride (Normal Saline 0.9%) 1,000 mls @ 125 mls/hr IV CONT [facility] Last Infusion: 01/13/20 19:47 Dose: 125 mls/hr Documented by: Admin: 01/13/20 07:45 Dose: 125 mls/hr Documented by: Infusion: 01/13/20 07:24 Dose: 125 mls/hr Documented by: Admin: 01/12/20 23:24 Dose: 125 mls/hr Documented by: MARIELA Piperacillin/Tazobactam/Dextrose (Zosyn) 3.375 gm in 50 mls @ 100 mls/hr IV Q8H [facility] Last Admin: 01/13/20 16:10 Dose: 100 mls/hr Documented by: Infusion: 01/13/20 08:55 Dose: 0 mls/hr Documented by: Infusion: 01/13/20 08:05 Dose: 100 mls/hr Documented by: Admin: 01/13/20 07:45 Dose: 100 mls/hr Documented by: Infusion: 01/13/20 00:50 Dose: 100 mls/hr Documented by: Admin: 01/13/20 00:20 Dose: 100 mls/hr Documented by: SACHA Ampicillin Sodium 2,000 mg/ (Sodium Chloride) 100 mls @ 200 mls/hr IV Q4H [facility] Stop: 01/19/20 21:00 Last Infusion: 01/17/20 14:27 Dose: 0 mls/hr Documented by: Admin: 01/17/20 12:51 Dose: 200 mls/hr Documented by: Infusion: 01/17/20 12:13 Dose: 0 mls/hr Documented by: Admin: 01/17/20 09:03 Dose: 200 mls/hr Documented by: Infusion: 01/17/20 04:17 Dose: 200 mls/hr Documented by: Admin: 01/17/20 03:47 Dose: 200 mls/hr Documented by: Infusion: 01/17/20 00:54 Dose: 200 mls/hr Documented by: Admin: 01/17/20 00:24 Dose: 200 mls/hr Documented by: Infusion: 01/16/20 21:04 Dose: 200 mls/hr Documented by: Admin: 01/16/20 20:34 Dose: 200 mls/hr Documented by: Infusion: 01/16/20 17:05 Dose: 0 mls/hr Documented by: Admin: 01/16/20 16:33 Dose: 200 mls/hr Documented by: Infusion: 01/16/20 15:02 Dose: 0 mls/hr Documented by: Admin: 01/16/20 13:00 Dose: 200 mls/hr Documented by: Infusion: 01/16/20 12:02 Dose: 0 mls/hr Documented by: Admin: 01/16/20 08:49 Dose: 200 mls/hr Documented by: Infusion: 01/16/20 06:41 Dose: 0 mls/hr Documented by: Admin: 01/16/20 04:27 Dose: 200 mls/hr Documented by: Infusion: 01/16/20 04:15 Dose: 0 mls/hr Documented by: Admin: 01/16/20 00:35 Dose: 200 mls/hr Documented by: Infusion: 01/15/20 21:32 Dose: 200 mls/hr Documented by: Admin: 01/15/20 20:43 Dose: 200 mls/hr Documented by: Infusion: 01/15/20 17:38 Dose: 200 mls/hr Documented by: Admin: 01/15/20 16:38 Dose: 200 mls/hr Documented by: Infusion: 01/15/20 15:30 Dose: 200 mls/hr Documented by: Admin: 01/15/20 12:13 Dose: 200 mls/hr Documented by: Infusion: 01/15/20 09:56 Dose: 200 mls/hr Documented by: Admin: 01/15/20 09:26 Dose: 200 mls/hr Documented by: Infusion: 01/15/20 04:52 Dose: 0 mls/hr Documented by: Admin: 01/15/20 04:22 Dose: 200 mls/hr Documented by: Infusion: 01/15/20 00:20 Dose: 0 mls/hr Documented by: Admin: 01/14/20 23:49 Dose: 200 mls/hr Documented by: Infusion: 01/14/20 21:24 Dose: 0 mls/hr Documented by: Admin: 01/14/20 20:45 Dose: 200 mls/hr Documented by: Infusion: 01/14/20 16:50 Dose: 0 mls/hr Documented by: Admin: 01/14/20 15:59 Dose: 200 mls/hr Documented by: Infusion: 01/14/20 15:46 Dose: 0 mls/hr Documented by: Admin: 01/14/20 12:07 Dose: 200 mls/hr Documented by: Infusion: 01/14/20 09:44 Dose: 200 mls/hr Documented by: Admin: 01/14/20 09:14 Dose: 200 mls/hr Documented by: Infusion: 01/14/20 04:54 Dose: 200 mls/hr Documented by: Admin: 01/14/20 04:24 Dose: 200 mls/hr Documented by: Infusion: 01/14/20 04:22 Dose: 200 mls/hr Documented by: Admin: 01/14/20 00:32 Dose: 200 mls/hr Documented by: Infusion: 01/13/20 21:40 Dose: 200 mls/hr Documented by: Admin: 01/13/20 21:10 Dose: 200 mls/hr Documented by: SINDI Sodium Chloride (Normal Saline 0.9%) 1,000 mls @ 100 mls/hr IV CONT [facility]ILBER Stop: 01/16/20 04:29 Last Admin: 01/15/20 18:49 Dose: 100 mls/hr Documented by: LAZARA Sodium Chloride (Normal Saline 0.9%) 1,000 mls @ 100 mls/hr IV CONT WILBER Last Admin: 01/17/20 06:21 Dose: 100 mls/hr Documented by: Infusion: 01/17/20 04:45 Dose: 100 mls/hr Documented by: Admin: 01/16/20 18:45 Dose: 100 mls/hr Documented by: DIANEEREPa Insulin Aspart (Novolog Flexpen) 0 unit SUBCUT ACHS [facility]; Protocol Last Admin: 01/17/20 12:12 Dose: Not Given Documented by: Admin: 01/17/20 10:57 Dose: Not Given Documented by: Admin: 01/16/20 20:37 Dose: Not Given Documented by: Admin: 01/16/20 16:32 Dose: 1 unit Documented by: HELDER Cosigned by: LEILANI Admin: 01/16/20 12:02 Dose: Not Given Documented by: Admin: 01/16/20 08:50 Dose: Not Given Documented by: Admin: 01/15/20 20:56 Dose: Not Given Documented by: Admin: 01/15/20 16:51 Dose: Not Given Documented by: Admin: 01/15/20 12:11 Dose: Not Given Documented by: Admin: 01/15/20 09:17 Dose: Not Given Documented by: Admin: 01/14/20 21:06 Dose: Not Given Documented by: Admin: 01/14/20 16:50 Dose: Not Given Documented by: Admin: 01/14/20 12:04 Dose: Not Given Documented by: Admin: 01/14/20 08:55 Dose: Not Given Documented by: Admin: 01/13/20 21:03 Dose: Not Given Documented by: Admin: 01/13/20 17:18 Dose: Not Given Documented by: Admin: 01/13/20 11:58 Dose: Not Given Documented by: Admin: 01/13/20 07:48 Dose: Not Given Documented by: TEODORO Lidocaine (Lidoderm) 1 each TOP DAILY [facility] Last Admin: 01/17/20 09:03 Dose: 1 each Documented by: Admin: 01/16/20 08:48 Dose: 1 each Documented by: Admin: 01/15/20 09:27 Dose: 1 each Documented by: Admin: 01/14/20 05:26 Dose: 1 each Documented by: Admin: 01/13/20 09:13 Dose: 1 each Documented by: TEODORO Lidocaine (Lidoderm (Remove Patch)) 1 each TOP BEDTIME [facility] Last Admin: 01/16/20 20:37 Dose: Not Given Documented by: Admin: 01/15/20 22:14 Dose: Not Given Documented by: Admin: 01/14/20 20:45 Dose: Not Given Documented by: Admin: 01/13/20 21:03 Dose: 1 each Documented by: SINDI Magnesium Citrate (Magnesium Citrate) 150 ml PO NOW ONE Stop: 01/13/20 15:01 Last Admin: 01/13/20 16:11 Dose: 150 ml Documented by: SINDI Methocarbamol (Robaxin) 750 mg PO QID PRN PRN Reason: Muscle Spasm Last Admin: 01/15/20 13:27 Dose: 750 mg Documented by: Admin: 01/15/20 05:35 Dose: 750 mg Documented by: Admin: 01/14/20 18:56 Dose: 750 mg Documented by: Admin: 01/14/20 11:00 Dose: 750 mg Documented by: SINDI Naloxone HCl (Narcan) 0.2 mg IV Q2MIN PRN PRN Reason: Opiate Reversal Ondansetron HCl (Zofran) 4 mg IV Q8HR PRN PRN Reason: Nausea And Vomiting Oxycodone HCl (Oxycodone) 10 mg PO Q4HR PRN PRN Reason: Pain, Moderate (4-6) Last Admin: 01/14/20 10:59 Dose: 10 mg Documented by: Admin: 01/14/20 06:51 Dose: 10 mg Documented by: Admin: 01/13/20 20:54 Dose: 10 mg Documented by: Admin: 01/13/20 16:08 Dose: 10 mg Documented by: SINDI Oxycodone HCl (Percolone) 10 mg PO Q4H PRN PRN Reason: Pain, Moderate (4-6) Last Admin: 01/17/20 12:50 Dose: 10 mg Documented by: Admin: 01/17/20 09:04 Dose: 10 mg Documented by: Admin: 01/16/20 22:56 Dose: 10 mg Documented by: Admin: 01/16/20 10:11 Dose: 10 mg Documented by: Admin: 01/16/20 06:26 Dose: 10 mg Documented by: Admin: 01/16/20 02:29 Dose: 10 mg Documented by: Admin: 01/15/20 20:05 Dose: 10 mg Documented by: Admin: 01/15/20 13:26 Dose: 10 mg Documented by: Admin: 01/15/20 09:25 Dose: 10 mg Documented by: Admin: 01/15/20 05:34 Dose: 10 mg Documented by: Admin: 01/14/20 22:32 Dose: 10 mg Documented by: Admin: 01/14/20 18:57 Dose: 10 mg Documented by: Admin: 01/14/20 14:52 Dose: 10 mg Documented by: SINDI Oxycodone HCl (Percolone) 5 mg PO Q4HR PRN PRN Reason: Pain, Moderate (4-6) Last Admin: 01/16/20 18:45 Dose: 5 mg Documented by: HELDER Polyethylene Glycol (Miralax) 17 gm PO DAILY [facility] Last Admin: 01/17/20 09:03 Dose: 17 gm Documented by: Admin: 01/16/20 08:49 Dose: 17 gm Documented by: Admin: 01/15/20 09:27 Dose: 17 gm Documented by: Admin: 01/14/20 09:15 Dose: 17 gm Documented by: Admin: 01/13/20 10:18 Dose: 17 gm Documented by: TEODORO Polyethylene Glycol (Miralax) 17 gm PO DAILY [facility] Admin: 01/15/20 10:12 Dose: Not Given Documented by: Admin: 01/14/20 15:03 Dose: 17 gm Documented by: SINDI Rivaroxaban (Xarelto) 2.5 mg PO BID [facility] Last Admin: 01/17/20 09:04 Dose: 2.5 mg Documented by: Admin: 01/16/20 20:38 Dose: 2.5 mg Documented by: Admin: 01/16/20 08:50 Dose: 2.5 mg Documented by: Admin: 01/15/20 20:41 Dose: 2.5 mg Documented by: Admin: 01/15/20 09:27 Dose: 2.5 mg Documented by: Admin: 01/14/20 20:44 Dose: 2.5 mg Documented by: Admin: 01/14/20 09:15 Dose: 2.5 mg Documented by: Admin: 01/13/20 20:55 Dose: 2.5 mg Documented by: Admin: 01/13/20 10:16 Dose: 2.5 mg Documented by: TEODORO Sodium Chloride (Normal Saline 0.9% Flush) 10 ml IV PRN PRN PRN Reason: Flush Last Admin: 01/16/20 16:34 Dose: 10 ml Documented by: HELDER Sodium Chloride (Normal Saline 0.9% Flush) 10 ml IV PRN PRN PRN Reason: Flush Last Admin: 01/15/20 04:22 Dose: 10 ml Documented by: Admin: 01/14/20 23:45 Dose: 10 ml Documented by: KIESHA Valsartan (Diovan) 80 mg PO DAILY [facility] Last Admin: 01/17/20 09:04 Dose: 80 mg Documented by: Admin: 01/16/20 08:49 Dose: 80 mg Documented by: Admin: 01/15/20 09:27 Dose: 80 mg Documented by: Admin: 01/14/20 09:16 Dose: 80 mg Documented by: Admin: 01/13/20 09:17 Dose: 80 mg Documented by: TEODORO Vital Signs Vital signs: Vital Signs - 8 hr 01/12/20 16:22 01/12/20 16:45 01/12/20 16:46 Temperature 100.6 F H Pulse Rate 75 76 78 Respiratory Rate 24 Blood Pressure 193/90 H 181/81 H Pulse Oximetry 96 99 99 01/12/20 17:00 01/12/20 17:30 01/12/20 18:00 Temperature Pulse Rate 81 78 82 Respiratory Rate 29 H 32 H Blood Pressure 180/84 H 184/82 H Pulse Oximetry 98 99 98 01/12/20 18:01 01/12/20 18:30 01/12/20 18:31 Temperature Pulse Rate 83 77 80 Respiratory Rate 31 H Blood Pressure 216/101 H 184/79 H Pulse Oximetry 99 98 98 01/12/20 19:00 01/12/20 19:30 01/12/20 19:57 Temperature 99.4 F Pulse Rate 79 82 Respiratory Rate 19 22 Blood Pressure 183/84 H 193/87 H Pulse Oximetry 98 97 01/12/20 20:13 01/12/20 20:23 01/12/20 20:30 Temperature 97.8 F Pulse Rate 79 77 77 Respiratory Rate 12 16 15 Blood Pressure 168/73 H 162/71 H Pulse Oximetry 96 96 94 01/12/20 21:00 01/12/20 21:30 Temperature Pulse Rate 80 76 Respiratory Rate 25 H 17 Blood Pressure 165/85 H 174/80 H Pulse Oximetry 98 96 MDM - Fever <Sanjeev Montemayor MD - Last Filed: 01/27/20 09:11> Lab Data Result diagrams: 01/16/20 09:20 01/17/20 05:20 Labs: Lab Results 01/12/20 01/12/20 01/12/20 Range/Units 16:39 16:39 16:39 WBC 14.2 H (4.5-11.0) X10^3/uL RBC 4.50 (4.5-5.9) X10^6/uL Hgb 11.6 L (13.5-17.5) g/dL Hct 35.1 L (41-53) % MCV 78.0 L (80-100) fL MCH 25.7 L (26-34) PG MCHC 33.0 (30-36) % RDW 21.8 H (11.6-14.8) % Plt Count 346 (150-400) X10^3/uL Neut % (Auto) 79.4 H (50-75) % Lymph % (Auto) 9.1 L (25-40) % [place] % (Auto) 10.5 (3-14) % Eos % (Auto) 0.4 L (2-4) % Baso % (Auto) 0.6 (0-2) % Neut # (Auto) 33036 H (6815-4927) /uL Lymph # (Auto) 1300 (7641-7943) /uL [place] # (Auto) 1500 H (0-900) /uL Eos # (Auto) 100 (0-450) /uL Baso # (Auto) 100 (0-100) /uL RBC Morphology See below Polychromasia 1+ H Hypochromasia 1+ H Microcytosis 1+ H PT 14.5 H (10.1-12.7) SECONDS INR 1.3 (0.9-1.3) APTT 30 (26.4-36.2) SECONDS Sodium (137-145) mmol/L Potassium (3.4-5.1) mmol/L Chloride (98-107) mmol/L Carbon Dioxide (22-32) mmol/L BUN (9-20) mg/dL Creatinine (0.66-1.25) mg/dL Estimated GFR (>60) mL/min BUN/Creatinine Ratio (6-22) Glucose (80-110) mg/dL Lactate (0.7-2.1) mmol/L Calcium (8.4-10.2) mg/dL Magnesium (1.6-2.3) mg/dL Total Bilirubin (0.2-1.3) mg/dL AST (17-59) IU/L ALT (<50) IU/L Alkaline Phosphatase (38-126) U/L Total Protein (6.3-8.2) g/dL Albumin (3.5-5.0) g/dL Globulin (1.7-4.1) g/dL Albumin/Globulin Ratio (1.0-2.8) Lipase (23-300) U/L Procalcitonin 0.06 (<0.5) ng/mL Urine Color Urine Appearance Urine pH (4.5-8.0) Ur Specific [place] (1.000-1.035) Urine Protein (Negative) Urine Glucose (UA) (Negative) g/dL Urine Ketones (NEGATIVE) Urine Occult Blood (Negative) Urine Nitrate (Negative) Urine Bilirubin (NEGATIVE) Urine Urobilinogen (0.2) E.U./dL Ur Leukocyte Esterase (NEGATIVE) Urine RBC (0-5/HPF) Urine WBC (0-5/HPF) Ur Squamous Epith Cells (0-5/HPF) Urine Bacteria (None) Ur Culture Indicated? A. baumannii (PCR) (Not Detect) Jessica albicans (PCR) (Not Detect) C. glabrata (PCR) (Not Detect) C. krusei (PCR) (Not Detect) C. parapsilosis (PCR) (Not Detect) C. tropicalis (PCR) (Not Detect) COVID-19 PCR (Negative) Enterobacteriac sp PCR (Not Detect) E. cloacae complex PCR (Not Detect) Enterococcus sp PCR (Not Detect) E. coli (PCR) (Not Detect) H. influenzae (PCR) (Not Detect) Klebsiella oxytoca PCR (Not Detect) Klebsiella pneumoniae (Not Detect) List. monocytogenes PCR (Not Detect) N. meningitidis (PCR) (Not Detect) Proteus species (PCR) (Not Detect) Serratia marcescens PCR (Not Detect) Staphylococcus sp PCR (Not Detect) Staph aureus (PCR) (Not Detect) mecA-Methicil Res Gene (Not Detect) Streptococcus sp PCR (Not Detect) Group A Strep (PCR) (Not Detect) Strep agalactiae (PCR) (Not Detect) Strep pneumoniae (PCR) (Not Detect) P. aeruginosa (PCR) (Not Detect) Alvino/B-Vanco Res Genes (Not Detect) KPC-Carbap Res Gene PCR (Not Detect) 01/12/20 01/12/20 01/12/20 Range/Units 16:39 16:39 16:39 WBC (4.5-11.0) X10^3/uL RBC (4.5-5.9) X10^6/uL Hgb (13.5-17.5) g/dL Hct (41-53) % MCV (80-100) fL MCH (26-34) PG MCHC (30-36) % RDW (11.6-14.8) % Plt Count (150-400) X10^3/uL Neut % (Auto) (50-75) % Lymph % (Auto) (25-40) % [place] % (Auto) (3-14) % Eos % (Auto) (2-4) % Baso % (Auto) (0-2) % Neut # (Auto) (3055-1033) /uL Lymph # (Auto) (1199-3652) /uL [place] # (Auto) (0-900) /uL Eos # (Auto) (0-450) /uL Baso # (Auto) (0-100) /uL RBC Morphology Polychromasia Hypochromasia Microcytosis PT (10.1-12.7) SECONDS INR (0.9-1.3) APTT (26.4-36.2) SECONDS Sodium 125 L (137-145) mmol/L Potassium 4.4 (3.4-5.1) mmol/L Chloride 93 L (98-107) mmol/L Carbon Dioxide 22 (22-32) mmol/L BUN 20 (9-20) mg/dL Creatinine 0.78 (0.66-1.25) mg/dL Estimated GFR > 60.0 (>60) mL/min BUN/Creatinine Ratio 25.6 H (6-22) Glucose 105 (80-110) mg/dL Lactate 0.9 (0.7-2.1) mmol/L Calcium 8.8 (8.4-10.2) mg/dL Magnesium 2.2 (1.6-2.3) mg/dL Total Bilirubin 0.6 (0.2-1.3) mg/dL AST 24 (17-59) IU/L ALT 17 (<50) IU/L Alkaline Phosphatase 68 (38-126) U/L Total Protein 7.3 (6.3-8.2) g/dL Albumin 3.8 (3.5-5.0) g/dL Globulin 3.5 (1.7-4.1) g/dL Albumin/Globulin Ratio 1.1 (1.0-2.8) Lipase 56 (23-300) U/L Procalcitonin (<0.5) ng/mL Urine Color Urine Appearance Urine pH (4.5-8.0) Ur Specific [place] (1.000-1.035) Urine Protein (Negative) Urine Glucose (UA) (Negative) g/dL Urine Ketones (NEGATIVE) Urine Occult Blood (Negative) Urine Nitrate (Negative) Urine Bilirubin (NEGATIVE) Urine Urobilinogen (0.2) E.U./dL Ur Leukocyte Esterase (NEGATIVE) Urine RBC (0-5/HPF) Urine WBC (0-5/HPF) Ur Squamous Epith Cells (0-5/HPF) Urine Bacteria (None) Ur Culture Indicated? A. baumannii (PCR) (Not Detect) Jessica albicans (PCR) (Not Detect) C. glabrata (PCR) (Not Detect) C. krusei (PCR) (Not Detect) C. parapsilosis (PCR) (Not Detect) C. tropicalis (PCR) (Not Detect) COVID-19 PCR (Negative) Enterobacteriac sp PCR (Not Detect) E. cloacae complex PCR (Not Detect) Enterococcus sp PCR (Not Detect) E. coli (PCR) (Not Detect) H. influenzae (PCR) (Not Detect) Klebsiella oxytoca PCR (Not Detect) Klebsiella pneumoniae (Not Detect) List. monocytogenes PCR (Not Detect) N. meningitidis (PCR) (Not Detect) Proteus species (PCR) (Not Detect) Serratia marcescens PCR (Not Detect) Staphylococcus sp PCR (Not Detect) Staph aureus (PCR) (Not Detect) mecA-Methicil Res Gene (Not Detect) Streptococcus sp PCR (Not Detect) Group A Strep (PCR) (Not Detect) Strep agalactiae (PCR) (Not Detect) Strep pneumoniae (PCR) (Not Detect) P. aeruginosa (PCR) (Not Detect) Alvino/B-Vanco Res Genes (Not Detect) KPC-Carbap Res Gene PCR (Not Detect) 01/12/20 01/12/20 01/12/20 Range/Units 16:49 17:10 18:59 WBC (4.5-11.0) X10^3/uL RBC (4.5-5.9) X10^6/uL Hgb (13.5-17.5) g/dL Hct (41-53) % MCV (80-100) fL MCH (26-34) PG MCHC (30-36) % RDW (11.6-14.8) % Plt Count (150-400) X10^3/uL Neut % (Auto) (50-75) % Lymph % (Auto) (25-40) % [place] % (Auto) (3-14) % Eos % (Auto) (2-4) % Baso % (Auto) (0-2) % Neut # (Auto) (2523-0384) /uL Lymph # (Auto) (2195-6550) /uL [place] # (Auto) (0-900) /uL Eos # (Auto) (0-450) /uL Baso # (Auto) (0-100) /uL RBC Morphology Polychromasia Hypochromasia Microcytosis PT (10.1-12.7) SECONDS INR (0.9-1.3) APTT (26.4-36.2) SECONDS Sodium (137-145) mmol/L Potassium (3.4-5.1) mmol/L Chloride (98-107) mmol/L Carbon Dioxide (22-32) mmol/L BUN (9-20) mg/dL Creatinine (0.66-1.25) mg/dL Estimated GFR (>60) mL/min BUN/Creatinine Ratio (6-22) Glucose (80-110) mg/dL Lactate (0.7-2.1) mmol/L Calcium (8.4-10.2) mg/dL Magnesium (1.6-2.3) mg/dL Total Bilirubin (0.2-1.3) mg/dL AST (17-59) IU/L ALT (<50) IU/L Alkaline Phosphatase (38-126) U/L Total Protein (6.3-8.2) g/dL Albumin (3.5-5.0) g/dL Globulin (1.7-4.1) g/dL Albumin/Globulin Ratio (1.0-2.8) Lipase (23-300) U/L Procalcitonin (<0.5) ng/mL Urine Color Yellow Urine Appearance Clear Urine pH 7.0 (4.5-8.0) Ur Specific [place] 1.010 (1.000-1.035) Urine Protein Trace H (Negative) Urine Glucose (UA) Negative (Negative) g/dL Urine Ketones Negative (NEGATIVE) Urine Occult Blood 3+ H (Negative) Urine Nitrate Positive (Negative) Urine Bilirubin Negative (NEGATIVE) Urine Urobilinogen 0.2 (0.2) E.U./dL Ur Leukocyte Esterase Trace H (NEGATIVE) Urine RBC 5-10/hpf H (0-5/HPF) Urine WBC 5-10/hpf H (0-5/HPF) Ur Squamous Epith Cells None seen (0-5/HPF) Urine Bacteria Many (>30) H (None) Ur Culture Indicated? Specimen cultured A. baumannii (PCR) Not detected (Not Detect) Jessica albicans (PCR) Not detected (Not Detect) C. glabrata (PCR) Not detected (Not Detect) C. krusei (PCR) Not detected (Not Detect) C. parapsilosis (PCR) Not detected (Not Detect) C. tropicalis (PCR) Not detected (Not Detect) COVID-19 PCR Negative (Negative) Enterobacteriac sp PCR Not detected (Not Detect) E. cloacae complex PCR Not detected (Not Detect) Enterococcus sp PCR Detected H (Not Detect) E. coli (PCR) Not detected (Not Detect) H. influenzae (PCR) Not detected (Not Detect) Klebsiella oxytoca PCR Not detected (Not Detect) Klebsiella pneumoniae Not detected (Not Detect) List. monocytogenes PCR Not detected (Not Detect) N. meningitidis (PCR) Not detected (Not Detect) Proteus species (PCR) Not detected (Not Detect) Serratia marcescens PCR Not detected (Not Detect) Staphylococcus sp PCR Not detected (Not Detect) Staph aureus (PCR) Not detected (Not Detect) mecA-Methicil Res Gene Not detected (Not Detect) Streptococcus sp PCR Not detected (Not Detect) Group A Strep (PCR) Not detected (Not Detect) Strep agalactiae (PCR) Not detected (Not Detect) Strep pneumoniae (PCR) Not detected (Not Detect) P. aeruginosa (PCR) Not detected (Not Detect) Alvino/B-Vanco Res Genes Not detected (Not Detect) KPC-Carbap Res Gene PCR Not detected (Not Detect) Imaging Data Chest x-ray: Radiologist's Impression: [address] [address] XRay Report Signed Patient: Aman ChuMR#: [id number] : 3Acct:[id number] Age/Sex: 69 / MDate of Service: 01/12/20 Loc: ED Accession Number: [id number] Procedure: XR chest 1V Ordering Provider: Sanjeev Montemayor MD PROCEDURE: XR CHEST 1V INDICATIONS: suspected sepsis TECHNIQUE: One view of the chest was acquired. COMPARISON: [facility] , CHEST 1 VIEW, 09/07/2012, 14:35. FINDINGS: Surgical changes and devices: Median sternotomy wires are present with unchanged appearance of fractured superior wires. Surgical clips in the mediastinum compatible with prior revascularization procedure. Lungs and pleura: Mild diffuse interstitial prominence and streaky left ji hilar and left basilar opacities. No focal consolidations. No pleural effusions or pneumothorax. Mediastinum: Mediastinal contours appear stable. Heart size is normal. Bones and chest wall: No suspicious bony lesions. Overlying soft tissues appear unremarkable. IMPRESSION: Mild diffuse interstitial prominence with streaky left perihilar and left basilar opacities. Findings may represent atelectasis, although early developing airspace disease/pneumonia or aspiration may have a similar appearance. No focal consolidation. Dictated by: Rene Hardin M.D. on 01/12/2020 at 18:01 Approved by: Rene Hardin M.D. on 01/12/2020 at 18:03 ECG Data Attestation: I personally reviewed and interpreted this ECG as follows: (Normal sinus rhythm rate 75 beats per minute. Normal intervals. Nonspecific ST T wave changes. No ectopy. No acute ST findings.) <Henry Mejia, DO - Last Filed: 01/13/20 00:06> Lab Data Labs: Lab Results 01/12/20 01/12/20 01/12/20 Range/Units 16:39 16:39 16:39 WBC 14.2 H (4.5-11.0) X10^3/uL RBC 4.50 (4.5-5.9) X10^6/uL Hgb 11.6 L (13.5-17.5) g/dL Hct 35.1 L (41-53) % MCV 78.0 L (80-100) fL MCH 25.7 L (26-34) PG MCHC 33.0 (30-36) % RDW 21.8 H (11.6-14.8) % Plt Count 346 (150-400) X10^3/uL Neut % (Auto) 79.4 H (50-75) % Lymph % (Auto) 9.1 L (25-40) % [place] % (Auto) 10.5 (3-14) % Eos % (Auto) 0.4 L (2-4) % Baso % (Auto) 0.6 (0-2) % Neut # (Auto) 06303 H (0734-0475) /uL Lymph # (Auto) 1300 (2420-6809) /uL [place] # (Auto) 1500 H (0-900) /uL Eos # (Auto) 100 (0-450) /uL Baso # (Auto) 100 (0-100) /uL RBC Morphology See below Polychromasia 1+ H Hypochromasia 1+ H Microcytosis 1+ H PT 14.5 H (10.1-12.7) SECONDS INR 1.3 (0.9-1.3) APTT 30 (26.4-36.2) SECONDS Sodium (137-145) mmol/L Potassium (3.4-5.1) mmol/L Chloride (98-107) mmol/L Carbon Dioxide (22-32) mmol/L BUN (9-20) mg/dL Creatinine (0.66-1.25) mg/dL Estimated GFR (>60) mL/min BUN/Creatinine Ratio (6-22) Glucose (80-110) mg/dL Lactate (0.7-2.1) mmol/L Calcium (8.4-10.2) mg/dL Magnesium (1.6-2.3) mg/dL Total Bilirubin (0.2-1.3) mg/dL AST (17-59) IU/L ALT (<50) IU/L Alkaline Phosphatase (38-126) U/L Total Protein (6.3-8.2) g/dL Albumin (3.5-5.0) g/dL Globulin (1.7-4.1) g/dL Albumin/Globulin Ratio (1.0-2.8) Lipase (23-300) U/L Procalcitonin 0.06 (<0.5) ng/mL Urine Color Urine Appearance Urine pH (4.5-8.0) Ur Specific [place] (1.000-1.035) Urine Protein (Negative) Urine Glucose (UA) (Negative) g/dL Urine Ketones (NEGATIVE) Urine Occult Blood (Negative) Urine Nitrate (Negative) Urine Bilirubin (NEGATIVE) Urine Urobilinogen (0.2) E.U./dL Ur Leukocyte Esterase (NEGATIVE) Urine RBC (0-5/HPF) Urine WBC (0-5/HPF) Ur Squamous Epith Cells (0-5/HPF) Urine Bacteria (None) Ur Culture Indicated? A. baumannii (PCR) (Not Detect) Jessica albicans (PCR) (Not Detect) C. glabrata (PCR) (Not Detect) C. krusei (PCR) (Not Detect) C. parapsilosis (PCR) (Not Detect) C. tropicalis (PCR) (Not Detect) COVID-19 PCR (Negative) Enterobacteriac sp PCR (Not Detect) E. cloacae complex PCR (Not Detect) Enterococcus sp PCR (Not Detect) E. coli (PCR) (Not Detect) H. influenzae (PCR) (Not Detect) Klebsiella oxytoca PCR (Not Detect) Klebsiella pneumoniae (Not Detect) List. monocytogenes PCR (Not Detect) N. meningitidis (PCR) (Not Detect) Proteus species (PCR) (Not Detect) Serratia marcescens PCR (Not Detect) Staphylococcus sp PCR (Not Detect) Staph aureus (PCR) (Not Detect) mecA-Methicil Res Gene (Not Detect) Streptococcus sp PCR (Not Detect) Group A Strep (PCR) (Not Detect) Strep agalactiae (PCR) (Not Detect) Strep pneumoniae (PCR) (Not Detect) P. aeruginosa (PCR) (Not Detect) Alvino/B-Vanco Res Genes (Not Detect) KPC-Carbap Res Gene PCR (Not Detect) 01/12/20 01/12/20 01/12/20 Range/Units 16:39 16:39 16:39 WBC (4.5-11.0) X10^3/uL RBC (4.5-5.9) X10^6/uL Hgb (13.5-17.5) g/dL Hct (41-53) % MCV (80-100) fL MCH (26-34) PG MCHC (30-36) % RDW (11.6-14.8) % Plt Count (150-400) X10^3/uL Neut % (Auto) (50-75) % Lymph % (Auto) (25-40) % [place] % (Auto) (3-14) % Eos % (Auto) (2-4) % Baso % (Auto) (0-2) % Neut # (Auto) (3463-6541) /uL Lymph # (Auto) (2297-9412) /uL [place] # (Auto) (0-900) /uL Eos # (Auto) (0-450) /uL Baso # (Auto) (0-100) /uL RBC Morphology Polychromasia Hypochromasia Microcytosis PT (10.1-12.7) SECONDS INR (0.9-1.3) APTT (26.4-36.2) SECONDS Sodium 125 L (137-145) mmol/L Potassium 4.4 (3.4-5.1) mmol/L Chloride 93 L (98-107) mmol/L Carbon Dioxide 22 (22-32) mmol/L BUN 20 (9-20) mg/dL Creatinine 0.78 (0.66-1.25) mg/dL Estimated GFR > 60.0 (>60) mL/min BUN/Creatinine Ratio 25.6 H (6-22) Glucose 105 (80-110) mg/dL Lactate 0.9 (0.7-2.1) mmol/L Calcium 8.8 (8.4-10.2) mg/dL Magnesium 2.2 (1.6-2.3) mg/dL Total Bilirubin 0.6 (0.2-1.3) mg/dL AST 24 (17-59) IU/L ALT 17 (<50) IU/L Alkaline Phosphatase 68 (38-126) U/L Total Protein 7.3 (6.3-8.2) g/dL Albumin 3.8 (3.5-5.0) g/dL Globulin 3.5 (1.7-4.1) g/dL Albumin/Globulin Ratio 1.1 (1.0-2.8) Lipase 56 (23-300) U/L Procalcitonin (<0.5) ng/mL Urine Color Urine Appearance Urine pH (4.5-8.0) Ur Specific [place] (1.000-1.035) Urine Protein (Negative) Urine Glucose (UA) (Negative) g/dL Urine Ketones (NEGATIVE) Urine Occult Blood (Negative) Urine Nitrate (Negative) Urine Bilirubin (NEGATIVE) Urine Urobilinogen (0.2) E.U./dL Ur Leukocyte Esterase (NEGATIVE) Urine RBC (0-5/HPF) Urine WBC (0-5/HPF) Ur Squamous Epith Cells (0-5/HPF) Urine Bacteria (None) Ur Culture Indicated? A. baumannii (PCR) (Not Detect) Jessica albicans (PCR) (Not Detect) C. glabrata (PCR) (Not Detect) C. krusei (PCR) (Not Detect) C. parapsilosis (PCR) (Not Detect) C. tropicalis (PCR) (Not Detect) COVID-19 PCR (Negative) Enterobacteriac sp PCR (Not Detect) E. cloacae complex PCR (Not Detect) Enterococcus sp PCR (Not Detect) E. coli (PCR) (Not Detect) H. influenzae (PCR) (Not Detect) Klebsiella oxytoca PCR (Not Detect) Klebsiella pneumoniae (Not Detect) List. monocytogenes PCR (Not Detect) N. meningitidis (PCR) (Not Detect) Proteus species (PCR) (Not Detect) Serratia marcescens PCR (Not Detect) Staphylococcus sp PCR (Not Detect) Staph aureus (PCR) (Not Detect) mecA-Methicil Res Gene (Not Detect) Streptococcus sp PCR (Not Detect) Group A Strep (PCR) (Not Detect) Strep agalactiae (PCR) (Not Detect) Strep pneumoniae (PCR) (Not Detect) P. aeruginosa (PCR) (Not Detect) Alvino/B-Vanco Res Genes (Not Detect) KPC-Carbap Res Gene PCR (Not Detect) 01/12/20 01/12/20 01/12/20 Range/Units 16:49 17:10 18:59 WBC (4.5-11.0) X10^3/uL RBC (4.5-5.9) X10^6/uL Hgb (13.5-17.5) g/dL Hct (41-53) % MCV (80-100) fL MCH (26-34) PG MCHC (30-36) % RDW (11.6-14.8) % Plt Count (150-400) X10^3/uL Neut % (Auto) (50-75) % Lymph % (Auto) (25-40) % [place] % (Auto) (3-14) % Eos % (Auto) (2-4) % Baso % (Auto) (0-2) % Neut # (Auto) (0924-6577) /uL Lymph # (Auto) (9650-2627) /uL [place] # (Auto) (0-900) /uL Eos # (Auto) (0-450) /uL Baso # (Auto) (0-100) /uL RBC Morphology Polychromasia Hypochromasia Microcytosis PT (10.1-12.7) SECONDS INR (0.9-1.3) APTT (26.4-36.2) SECONDS Sodium (137-145) mmol/L Potassium (3.4-5.1) mmol/L Chloride (98-107) mmol/L Carbon Dioxide (22-32) mmol/L BUN (9-20) mg/dL Creatinine (0.66-1.25) mg/dL Estimated GFR (>60) mL/min BUN/Creatinine Ratio (6-22) Glucose (80-110) mg/dL Lactate (0.7-2.1) mmol/L Calcium (8.4-10.2) mg/dL Magnesium (1.6-2.3) mg/dL Total Bilirubin (0.2-1.3) mg/dL AST (17-59) IU/L ALT (<50) IU/L Alkaline Phosphatase (38-126) U/L Total Protein (6.3-8.2) g/dL Albumin (3.5-5.0) g/dL Globulin (1.7-4.1) g/dL Albumin/Globulin Ratio (1.0-2.8) Lipase (23-300) U/L Procalcitonin (<0.5) ng/mL Urine Color Yellow Urine Appearance Clear Urine pH 7.0 (4.5-8.0) Ur Specific [place] 1.010 (1.000-1.035) Urine Protein Trace H (Negative) Urine Glucose (UA) Negative (Negative) g/dL Urine Ketones Negative (NEGATIVE) Urine Occult Blood 3+ H (Negative) Urine Nitrate Positive (Negative) Urine Bilirubin Negative (NEGATIVE) Urine Urobilinogen 0.2 (0.2) E.U./dL Ur Leukocyte Esterase Trace H (NEGATIVE) Urine RBC 5-10/hpf H (0-5/HPF) Urine WBC 5-10/hpf H (0-5/HPF) Ur Squamous Epith Cells None seen (0-5/HPF) Urine Bacteria Many (>30) H (None) Ur Culture Indicated? Specimen cultured A. baumannii (PCR) Not detected (Not Detect) Jessica albicans (PCR) Not detected (Not Detect) C. glabrata (PCR) Not detected (Not Detect) C. krusei (PCR) Not detected (Not Detect) C. parapsilosis (PCR) Not detected (Not Detect) C. tropicalis (PCR) Not detected (Not Detect) COVID-19 PCR Negative (Negative) Enterobacteriac sp PCR Not detected (Not Detect) E. cloacae complex PCR Not detected (Not Detect) Enterococcus sp PCR Detected H (Not Detect) E. coli (PCR) Not detected (Not Detect) H. influenzae (PCR) Not detected (Not Detect) Klebsiella oxytoca PCR Not detected (Not Detect) Klebsiella pneumoniae Not detected (Not Detect) List. monocytogenes PCR Not detected (Not Detect) N. meningitidis (PCR) Not detected (Not Detect) Proteus species (PCR) Not detected (Not Detect) Serratia marcescens PCR Not detected (Not Detect) Staphylococcus sp PCR Not detected (Not Detect) Staph aureus (PCR) Not detected (Not Detect) mecA-Methicil Res Gene Not detected (Not Detect) Streptococcus sp PCR Not detected (Not Detect) Group A Strep (PCR) Not detected (Not Detect) Strep agalactiae (PCR) Not detected (Not Detect) Strep pneumoniae (PCR) Not detected (Not Detect) P. aeruginosa (PCR) Not detected (Not Detect) Alvino/B-Vanco Res Genes Not detected (Not Detect) KPC-Carbap Res Gene PCR Not detected (Not Detect) Imaging Data Chest x-ray: Radiologist's Impression: [place] [id number] XRay Report Signed Patient: Aman ChuMR#: [id number] : 3Acct:[id number] Age/Sex: 69 / MDate of Service: 01/12/20 Loc: ED Accession Number: [id number] Procedure: XR chest 1V Ordering Provider: Sanjeev Montemayor MD PROCEDURE: XR CHEST 1V INDICATIONS: suspected sepsis TECHNIQUE: One view of the chest was acquired. COMPARISON: [facility], CHEST 1 VIEW, 09/07/2012, 14:35. FINDINGS: Surgical changes and devices: Median sternotomy wires are present with unchanged appearance of fractured superior wires. Surgical clips in the mediastinum compatible with prior revascularization procedure. Lungs and pleura: Mild diffuse interstitial prominence and streaky left perihilar and left basilar opacities. No focal consolidations. No pleural effusions or pneumothorax. Mediastinum: Mediastinal contours appear stable. Heart size is normal. Bones and chest wall: No suspicious bony lesions. Overlying soft tissues appear unremarkable. IMPRESSION: Mild diffuse interstitial prominence with streaky left perihilar and left basilar opacities. Findings may represent atelectasis, although early developing airspace disease/pneumonia or aspiration may have a similar appearance. No focal consolidation. Dictated by: Rene Hardin M.D. on 01/12/2020 at 18:01 Approved by: Rene Hardin M.D. on 01/12/2020 at 18:03 CT scan - abdomen/pelvis: Radiologist's Impression: [address] [address] [address] Scan Report Signed Patient: Aman ChuMR#: [id number] : 3Acct:[id number] Age/Sex: 69 / MDate of Service: 01/12/20 Loc: ED Accession Number: [id number] Procedure: CT abdomen pelvis w con Ordering Provider: Sanjeev Montemayor MD PROCEDURE: CT ABDOMEN PELVIS W CON INDICATIONS: Right pyelonephritis. Neobladder. TECHNIQUE: After the administration of intravenous contrast, 5 mm thick sections acquired from the diaphragm to the symphysis. 5 mm coronal and sagittal reformats were acquired. For radiation dose reduction, the following was used: automated exposure control, adjustment of mA and/or kV according to patient size. COMPARISON: None. FINDINGS: Image quality: Excellent. ABDOMEN: Lung bases: Visualized lung bases demonstrate mild bibasilar dependent atelectasis. Median sternotomy wires are present and appear intact. Heart size is normal. Solid organs: Liver is normal in size and enhancement. Gallbladder is unremarkable. Biliary system is non dilated. Pancreas enhances normally. Minimal prominence of the pancreatic duct without evidence for pancreatic mass lesions. No peripancreatic inflammatory stranding. Spleen is normal in size and enhancement. No adrenal nodules. The bilateral kidneys are normal in size and enhancement with minimal bilateral hydronephrosis more pronounced on the left. There is prominence of the bilateral upper renal collecting system with mild dilatation of the bilateral ureters. The bilateral ureters appear to be anastomosed to a neobladder which appears to be constructed from a segment of small bowel. Peritoneum and bowel: There is mild distension and air-fluid levels noted in a short segment of small bowel in the left lower quadrant in close proximity to a nastomotic sutures of neobladder. However, there is no significant small bowel dilatation proximally. There is a moderate amount of air and fecal material seen throughout the colon with decompression near the left lower quadrant, best seen on axial image 75, series 2. No evidence for adjacent adenopathy, mass lesion, or strictures. No free fluid or free air. Nodes and vessels: No retroperitoneal or mesenteric adenopathy by size criteria. Moderate atherosclerosis without aneurysmal dilatation of the abdominal aorta. Miscellaneous: No ventral hernias. PELVIS: Genitourinary: A neobladder is visualized. No significant wall thickening or surrounding inflammation. Miscellaneous: No pelvic adenopathy. Small bilateral fat containing inguinal hernia without acute inflammatory changes. Bones: No suspicious bony lesions. No acute vertebral body compression fractures. Multilevel spondylitic changes throughout the imaged spine. IMPRESSION: 1. Small segment of prominent small bowel which is visualized adjacent to the neobladder and neobladder anastomotic suture line. Findings may represent ileus versus possible partial small bowel obstruction secondary to adhesions in the vicinity of surgery. However, the small bowel proximally is not dilated. There is also moderate distension of the colon with air and fecal material seen throughout the visualized colon. There is decompression near the distal descending colon. Otherwise, no evidence for distal colonic obstruction. 2. Minimal bilateral hydronephrosis with prominent bilateral ureters. No perinephric inflammation. Findings may be related to physiologic changes secondary to creation of a neobladder. 3. Other chronic findings as above. Dictated by: Rene Hardin M.D. on 01/12/2020 at 21:02 Approved by: Rene Hardin M.D. on 01/12/2020 at 21:16 [facility] Narrative Medical decision making narrative: Dr Mejia: Received turned over from day provider. Reviewed patient's history and physical. Dr. Montemayor already discussed the case with VALDEZ Koroma the [facility] hospitalist. Decision was made to obtain a CT scan of the abdomen to evaluate for any changes from prior CT scans with anticipation the patient be admitted to the hospital given his current presenting symptoms. The CT scan was obtained. There were findings on the CT scan concerning for potential bowel obstruction however this was not definitive. I did discuss the case with Dr. Verdin with General surgery who did evaluate the CT scan and evaluated the patient. Please see his note in the chart. I then discussed the case with VALDEZ Virgen [facility] hospitalist. Will admit for further evaluation and treatment. Patient did receive antibiotics by Dr. Montemayor. Patient states that he has never been told that he has a chronic urinary tract infection or is colonized. His CT scans not consistent with pyelonephritis. I did discuss the CT scan findings with the patient and his . Discussed the need for admitting to the hospital. Patient expressed und erstanding and agreement. Discharge Plan Departure Patient Disposition: Admitted As Inpatient Clinical Impression: Acute hyponatremia, Small bowel obstruction Back pain Qualifiers: Back pain location: low back pain Chronicity: acute Back pain laterality: right Sciatica presence: without sciatica Qualified Code(s): M54.5 - Low back pain Urinary tract infection Qualifiers: Urinary tract infection type: acute cystitis Hematuria presence: with hematuria Qualified Code(s): N30.01 - Acute cystitis with hematuria Discharge Date/Time: 01/12/20 22:20 Referrals: Royer Oro MD [Primary Care Provider] - Admit Date/Time: 01/12/20 22:02 Admit Provider: Tremayne Koroma
[2020-01-12 16:53] LABS: Add Manual Diff / Slide Review NO; Basophils Absolute Auto 100 /uL (0-100); Basophils Percent Auto 0.6 % (0-2); Eosinophils Absolute Auto 100 /uL (0-450); Eosinophils Percent Auto 0.4 % (2-4); Hematocrit 35.1 % (41-53); Hemoglobin 11.6 g/dL (13.5-17.5); Lymphocytes Absolute Auto 1300 /uL (1100-4500); Lymphocytes Percent Auto 9.1 % (25-40); Mean Corpuscular Hemoglobin 25.7 PG (26-34); Monocytes Absolute Auto 1500 /uL (0-900); Monocytes Percent Auto 10.5 % (3-14); Neutrophils Absolute Auto 11300 /uL (1500-7000); Neutrophils Percent Auto 79.4 % (50-75); Platelet Count 346 X10^3/uL (150-400); Red Cell Distribution Width 21.8 % (11.6-14.8); White Blood Cell Count 14.2 X10^3/uL (4.5-11.0)
[2020-01-12] MEDS: CEFTRIAXONE 1 GM/50 ML FROZ.PIGGY IV (16:57)
[2020-01-12] MEDS: SODIUM CHLORIDE 0.9% 1,000 ML 1000 ML IV (16:57)
[2020-01-12 17:04] LABS: INR 1.3 (0.9-1.3); Prothrombin Time 14.5 SECONDS (10.1-12.7)
[2020-01-12 17:07] LABS: PTT Partial Thromboplastin Tim 30 SECONDS (26.4-36.2)
[2020-01-12 17:09] LABS: Alanine Aminotransferase 17 IU/L (<50); Albumin 3.8 g/dL (3.5-5.0); Albumin Globulin Ratio 1.1 (1.0-2.8); Alkaline Phosphatase 68 U/L (38-126); Aspartate Aminotransferase 24 IU/L (17-59); BUN Creatinine Ratio 25.6 (6-22); Bilirubin Total 0.6 mg/dL (0.2-1.3); Blood Urea Nitrogen 20 mg/dL (9-20); Calcium 8.8 mg/dL (8.4-10.2); Carbon Dioxide 22 mmol/L (22-32); Chloride 93 mmol/L (98-107); Estimated Glomerular Filt Rate > 60.0 mL/min (>60); Globulin 3.5 g/dL (1.7-4.1); Glucose 105 mg/dL (80-110); HEMOLYSIS 31 (0-50); Lipase 56 U/L (23-300); Potassium 4.4 mmol/L (3.4-5.1); Sodium 125 mmol/L (137-145); Total Protein 7.3 g/dL (6.3-8.2)
[2020-01-12 17:10] LABS: Lactate (Lactic Acid) 0.9 mmol/L (0.7-2.1)
[2020-01-12 17:29] LABS: Procalcitonin 0.06 ng/mL (<0.5)
[2020-01-12 17:34] LABS: Hypochromasia 1+; Microcytosis 1+; Polychromasia 1+
[2020-01-12 17:50] LABS: COVID19 -Nasal RAPID Negative (Negative)
[2020-01-12] MEDS: SODIUM CHLORIDE 0.9% 1,000 ML 250 ML IV (18:02)
[2020-01-12 19:28] LABS: Appearance Urine UA CLEAR; Bilirubin Urine UA NEGATIVE (NEGATIVE); Color Urine UA YELLOW; Glucose Urine UA NEGATIVE (Negative); Ketones Urine UA NEGATIVE (NEGATIVE); Leukocyte Esterase Urine UA TRACE (NEGATIVE); Nitrite Urine UA POSITIVE (Negative); Occult Blood Urine UA 3+ (Negative); Protein Urine UA TRACE (Negative); Urobilinogen Urine UA 0.2 E.U./dL (0.2)
--- NOTE | 2020-01-12 19:35 | DI.CT.S_ITS ---
PROCEDURE: CT ABDOMEN PELVIS W CON INDICATIONS: Right pyelonephritis. Neobladder. TECHNIQUE: After the administration of intravenous contrast, 5 mm thick sections acquired from the diaphragm to the symphysis. 5 mm coronal and sagittal reformats were acquired. For radiation dose reduction, the following was used: automated exposure control, adjustment of mA and/or kV according to patient size. COMPARISON: None. FINDINGS: Image quality: Excellent. ABDOMEN: Lung bases: Visualized lung bases demonstrate mild bibasilar dependent atelectasis. Median sternotomy wires are present and appear intact. Heart size is normal. Solid organs: Liver is normal in size and enhancement. Gallbladder is unremarkable. Biliary system is non dilated. Pancreas enhances normally. Minimal prominence of the pancreatic duct without evidence for pancreatic mass lesions. No peripancreatic inflammatory stranding. Spleen is normal in size and enhancement. No adrenal nodules. The bilateral kidneys are normal in size and enhancement with minimal bilateral hydronephrosis more pronounced on the left. There is prominence of the bilateral upper renal collecting system with mild dilatation of the bilateral ureters. The bilateral ureters appear to be anastomosed to a neobladder which appears to be constructed from a segment of small bowel. Peritoneum and bowel: There is mild distension and air-fluid levels noted in a short segment of small bowel in the left lower quadrant in close proximity to anastomotic sutures of neobladder. However, there is no significant small bowel dilatation proximally. There is a moderate amount of air and fecal material seen throughout the colon with decompression near the left lower quadrant, best seen on axial image 75, series 2. No evidence for adjacent adenopathy, mass lesion, or strictures. No free fluid or free air. Nodes and vessels: No retroperitoneal or mesenteric adenopathy by size criteria. Moderate atherosclerosis without aneurysmal dilatation of the abdominal aorta. Miscellaneous: No ventral hernias. PELVIS: Genitourinary: A neobladder is visualized. No significant wall thickening or surrounding inflammation. Miscellaneous: No pelvic adenopathy. Small bilateral fat containing inguinal hernia without acute inflammatory changes. Bones: No suspicious bony lesions. No acute vertebral body compression fractures. Multilevel spondylitic changes throughout the imaged spine. IMPRESSION: 1. Small segment of prominent small bowel which is visualized adjacent to the neobladder and neobladder anastomotic suture line. Findings may represent ileus versus possible partial small bowel obstruction secondary to adhesions in the vicinity of surgery. However, the small bowel proximally is not dilated. There is also moderate distension of the colon with air and fecal material seen throughout the visualized colon. There is decompression near the distal descending colon. Otherwise, no evidence for distal colonic obstruction. 2. Minimal bilateral hydronephrosis with prominent bilateral ureters. No perinephric inflammation. Findings may be related to physiologic changes secondary to creation of a neobladder. 3. Other chronic findings as above. Dictated by: Rene Hardin M.D. on 01/12/2020 at 21:02 Approved by: Rene Hardin M.D. on 01/12/2020 at 21:16
[2020-01-12 19:44] LABS: RBC Urine 5-10/HPF (0-5/HPF); WBC Urine 5-10/HPF (0-5/HPF)
[2020-01-12 19:45] LABS: Bacteria Urine Many (>30); Culture Indicated Urine Specimen Cultured; Squamous Epithelial Cell Urine None Seen (0-5/HPF)
[2020-01-12] MEDS: HYDROMORPHONE 1 MG INJ IV ×2 (19:47→23:27)
--- NOTE | 2020-01-12 22:15 | PM.CN ---
History of Present Illness Consult details Date Patient Seen: 01/12/20 Time Patient Seen: 22:16 Chief complaint: fever / back pain Reason for consult: Abnormal CT scan Requesting provider: Herny Mejia Narrative: The patient is a gentleman who recently was discharged from the hospital at [place] where he was treated for back pain with Tylenol and Valium per his history. His back pain which is right lower back in the muscle has persisted. It does not radiate anywhere. He does not think it is in his bones. His urine has become foul smelling and dark. He came to the ER because of those things. He has not been passing much gas and has not had a bowel movement today. He does not have abdominal pain however and he has not been vomiting. He is status post an operation to remove a portion of his bladder and create a neobladder. They use small bowel. He still urinates through his penis without catheterization. Of note, patient had a 4 vessel CABG 15 years ago for symptoms of jaw pain which have not recurred. He has what he describes as 20 peripheral stents due to vascular disease. Meds Home Medications and Allergies Home Medications Medication Instructions Recorded Confirmed Type acetaminophen 650 mg PO Q4H PRN 01/12/20 01/12/20 History aspirin [Aspir-81] 81 mg PO DAILY 01/12/20 01/12/20 History atorvastatin 40 mg PO BEDTIME 01/12/20 01/12/20 History carvedilol 12.5 mg PO BID 01/12/20 01/12/20 History cilostazol 100 mg PO BID 01/12/20 01/12/20 History diazepam 5 mg PO Q6HR PRN 01/12/20 01/12/20 History diltiazem HCl 120 mg PO DAILY 01/12/20 01/12/20 History docusate calcium 240 mg PO BID 01/12/20 01/12/20 History ezetimibe 10 mg PO DAILY 01/12/20 01/12/20 History lidocaine [Lidoderm] 1 patch TOPICAL DAILY 01/12/20 01/12/20 History rivaroxaban [Xarelto] 2.5 mg PO BID 01/12/20 01/12/20 History valsartan 80 mg PO DAILY 01/12/20 01/12/20 History Allergies Allergy/AdvReac Type Severity Reaction Status Date / Time Gdkllps-[id number]-[id number] Reductase AdvReac Mild Rash Verified 01/12/20 16:28 Inhibitor Review of Systems Review of Systems Narrative: Patient has no problems swallowing. No chest pain or unusual shortness of breath. He thinks he exercises a lot. He does not get any pain in his calf sores feet though prior to having multiple stents he did have those symptoms. Patient has no black or bloody bowel movements no seizures or blackouts Exam Vital Signs (past 8 hours): - 01/12/20 16:22 01/12/20 16:45 01/12/20 16:46 Temperature 100.6 F H Pulse Rate 75 76 78 Respiratory Rate 24 Blood Pressure 193/90 H 181/81 H Pulse Oximetry 96 99 99 01/12/20 17:00 01/12/20 17:30 01/12/20 18:00 Temperature Pulse Rate 81 78 82 Respiratory Rate 29 H 32 H Blood Pressure 180/84 H 184/82 H Pulse Oximetry 98 99 98 01/12/20 18:01 01/12/20 18:30 01/12/20 18:31 Temperature Pulse Rate 83 77 80 Respiratory Rate 31 H Blood Pressure 216/101 H 184/79 H Pulse Oximetry 99 98 98 01/12/20 19:00 01/12/20 19:30 01/12/20 19:57 Temperature 99.4 F Pulse Rate 79 82 Respiratory Rate 19 22 Blood Pressure 183/84 H 193/87 H Pulse Oximetry 98 97 01/12/20 20:13 01/12/20 20:23 01/12/20 20:30 Temperature 97.8 F Pulse Rate 79 77 77 Respiratory Rate 12 16 15 Blood Pressure 168/73 H 162/71 H Pulse Oximetry 96 96 94 01/12/20 21:00 01/12/20 21:30 Temperature Pulse Rate 80 76 Respiratory Rate 25 H 17 Blood Pressure 165/85 H 174/80 H Pulse Oximetry 98 96 Oxygen Delivery Method Room Air Narrative Exam Narrative: No apparent distress. Eyes are nonicteric. Lungs are clear to auscultation no rales or rhonchi equal percussion heart regular rate and rhythm without murmur gallop. No bruit in the neck. His abdomen is distended but soft. There are no palpable hernias. Liver and spleen are not enlarged. There is no tenderness. Extremities without cyanosis clubbing or edema. His feet are warm but there are no pedal pulses. He has hair on his right leg to his distal leg. Left leg has markedly less hair. There are no popliteal pulses felt either. Objective Imaging CT scan - abdomen: My impression: CT reviewed. The small bowel is normal in size. He has a neobladder that is distended. He appears to have a dilated colon to the sigmoid. There does collapse. There is no obvious lesion however. Labs Result Diagrams: 01/12/20 16:39 01/12/20 16:39 Labs: Laboratory Results - last 24 hr 01/12/20 01/12/20 01/12/20 16:39 16:39 16:39 WBC 14.2 H RBC 4.50 Hgb 11.6 L Hct 35.1 L MCV 78.0 L MCH 25.7 L MCHC 33.0 RDW 21.8 H Plt Count 346 Neut % (Auto) 79.4 H Lymph % (Auto) 9.1 L [place] % (Auto) 10.5 Eos % (Auto) 0.4 L Baso % (Auto) 0.6 Neut # (Auto) 77133 H Lymph # (Auto) 1300 [place] # (Auto) 1500 H Eos # (Auto) 100 Baso # (Auto) 100 RBC Morphology See below Polychromasia 1+ H Hypochromasia 1+ H Microcytosis 1+ H PT 14.5 H INR 1.3 APTT 30 Sodium Potassium Chloride Carbon Dioxide BUN Creatinine Estimated GFR BUN/Creatinine Ratio Glucose Lactate Calcium Total Bilirubin AST ALT Alkaline Phosphatase Total Protein Albumin Globulin Albumin/Globulin Ratio Lipase Procalcitonin 0.06 Urine Color Urine Appearance Urine pH Ur Specific [place] Urine Protein Urine Glucose (UA) Urine Ketones Urine Occult Blood Urine Nitrate Urine Bilirubin Urine Urobilinogen Ur Leukocyte Esterase Urine RBC Urine WBC Ur Squamous Epith Cells Urine Bacteria Ur Culture Indicated? COVID-19 PCR 01/12/20 01/12/20 01/12/20 16:39 16:39 17:10 WBC RBC Hgb Hct MCV MCH MCHC RDW Plt Count Neut % (Auto) Lymph % (Auto) [place] % (Auto) Eos % (Auto) Baso % (Auto) Neut # (Auto) Lymph # (Auto) [place] # (Auto) Eos # (Auto) Baso # (Auto) RBC Morphology Polychromasia Hypochromasia Microcytosis PT INR APTT Sodium 125 L Potassium 4.4 Chloride 93 L Carbon Dioxide 22 BUN 20 Creatinine 0.78 Estimated GFR > 60.0 BUN/Creatinine Ratio 25.6 H Glucose 105 Lactate 0.9 Calcium 8.8 Total Bilirubin 0.6 AST 24 ALT 17 Alkaline Phosphatase 68 Total Protein 7.3 Albumin 3.8 Globulin 3.5 Albumin/Globulin Ratio 1.1 Lipase 56 Procalcitonin Urine Color Urine Appearance Urine pH Ur Specific [place] Urine Protein Urine Glucose (UA) Urine Ketones Urine Occult Blood Urine Nitrate Urine Bilirubin Urine Urobilinogen Ur Leukocyte Esterase Urine RBC Urine WBC Ur Squamous Epith Cells Urine Bacteria Ur Culture Indicated? COVID-19 PCR Negative 01/12/20 18:59 WBC RBC Hgb Hct MCV MCH MCHC RDW Plt Count Neut % (Auto) Lymph % (Auto) [place] % (Auto) Eos % (Auto) Baso % (Auto) Neut # (Auto) Lymph # (Auto) [place] # (Auto) Eos # (Auto) Baso # (Auto) RBC Morphology Polychromasia Hypochromasia Microcytosis PT INR APTT Sodium Potassium Chloride Carbon Dioxide BUN Creatinine Estimated GFR BUN/Creatinine Ratio Glucose Lactate Calcium Total Bilirubin AST ALT Alkaline Phosphatase Total Protein Albumin Globulin Albumin/Globulin Ratio Lipase Procalcitonin Urine Color Yellow Urine Appearance Clear Urine pH 7.0 Ur Specific [place] 1.010 Urine Protein Trace H Urine Glucose (UA) Negative Urine Ketones Negative Urine Occult Blood 3+ H Urine Nitrate Positive Urine Bilirubin Negative Urine Urobilinogen 0.2 Ur Leukocyte Esterase Trace H Urine RBC 5-10/hpf H Urine WBC 5-10/hpf H Ur Squamous Epith Cells None seen Urine Bacteria Many (>30) H Ur Culture Indicated? Specimen cultured COVID-19 PCR Assessment & Plan Assessment & Plan narrative: Patient with abdominal distension. Question was raised about a possible small-bowel obstruction but in fact there is no evidence on CT of such a finding. He does however appear to have colonic distention and may have a colonic ileus related to urinary tract infection. It may also be related to whatever treatment he got for his back pain. If any narcotics at all were used he could well of had no affect on his colonic function. I would recommend in addition to treatment for his UTI that he receive the suppositories to see if we can stimulate colonic function which should decrease his distention. I would limit his p.o. intake however. IV fluids to keep him well hydrated. Repeat x-rays in the morning have been ordered.
--- NOTE | 2020-01-12 22:19 | PM.HP.1 ---
History of Present Illness History of Present Illness Date Patient Seen: 01/12/20 Time Patient Seen: 23:07 Chief complaint: fever / back pain Narrative: Mr. Aman zuniga is a 69-year-old male patient with a past medical history significant for CAD status post coronary artery bypass grafting, CVA with residual right leg numbness on anticoagulation with long-term anticoagulation with Xarelto, bladder cancer status post cystectomy with formation of neobladder (03/2019) type 2 diabetes, hypertension and hyperlipidemia who presents to the ER with complaints of fevers back pain and dark colored urine. Patient states his symptoms began approximately 1 week ago. The patient is visiting from [facility] and was staying on his boat and [place] who presented to [facility] where he was admitted from [id number] with complaints of increasing back pain for 2 weeks. Discharge diagnoses from [facility] include lumbar back pain-musculoskeletal back spasms, constipation, bladder cancer with neobladder with an enlarged pelvic lymph node, finding of coronary bypass pseudoaneurysm and hyponatremia.. He describes continuing pain worsening with movement without any history of trauma and denies radiculopathy. He presents today complaining of inability to move secondary to the severity of pain and development of dark foul-smelling urine and a fever today. Denies complaints of headaches or dizziness sore throat or nasal congestion. He denies COVID-19 exposures. He denies complaints of chest pain or palpitations, shortness of breath cough or wheezing. Patient experience nausea and vomiting following taking oxycodone and tramadol but no persistent symptoms, last bowel movement was 6 days ago. Patient states he is continent of urine but uses a diaper at night. Upon arrival the ER the patient had a temperature of 100.6?, heart rate of 75, blood pressure 193/90, respiratory rate of 24 with an oxygen saturation 96% on room air. His pain at that time was 8/10. CT of the abdomen and pelvis is obtained finding normal solid organs describes both kidneys being normal in size enhancement with mild bilateral hydronephrosis more prominent on the left with dilation of bilateral renal collecting system and ureters anastomosed to a neobladder, small segment prominent small bowel adjacent to the neobladder concerning for possible ileus or partial obstruction without proximal small bowel dilation, moderate distention of the colon with air fecal material with decompression of the distal descending colon no evidence for distal colonic obstruction. On laboratory analysis the patient has elevated white count at 14.2 with mild left shift, hemoglobin of 11.6, hematocrit of 35.1, platelets 346. He has an MCV of 78 and MCH of 25.7. His PT is 14.5 with an INR 1.3 and a PTT of 30. He is hyponatremic with a sodium of 125 chloride 93 potassium of 4.4 with a BUN of 20 and creatinine 0.78. Nonfasting glucose is 105. His liver functions are all within normal range with lipase of 56 and albumin of 3.8. His procalcitonin is 0.06. Urine sample is obtained which shows trace protein, 3+ blood, positive nitrates and WBCs, trace leukocyte esterase and many bacteria. Samples reflex to culture. COVID-19 screening is negative. Medical records are obtained from [facility] [place] which demonstrates findings on 01/10/2020: WBCs 9.8, hemoglobin 13.2 and hematocrit 40.7, Sodium 125, potassium 4.6, chloride 93, BUN of 17. In the ER the patient received 1 g of Rocephin, 1 L normal saline normal saline 250 cc/hour. He received hydromorphone 0.[address] Verdin general surgery is contact to the emergency department who has agreed to consult. Patient is admitted to the medicine service for UTI, possible bowel obstruction versus ileus and hyponatremia. Patient History Medical History (Updated 01/13/20 @ 02:17 by REJI Finney) Bladder cancer (Acute) Coronary artery disease (Acute) History of CVA (cerebrovascular accident) (Acute) Hyperlipidemia (Acute) Hypertension (Acute) Peripheral vascular disease (Acute) Surgical History (Updated 01/13/20 @ 00:41 by REJI Finney) H/O prostatectomy (Acute) History of total cystectomy (Acute) Hx of CABG (Acute) Family & Social History Safety & Behavioral: Feels Safe in Current Yes Environment Been Physically Hurt or No Threatened By a Person Tobacco & Substance use: Smoking Status Former smoker alcohol intake frequency 0-2 drinks per day Substance Use Type does not use Meds Home Medications and Allergies Home Medications Medication Instructions Recorded Confirmed Type acetaminophen 650 mg PO Q4H PRN 01/12/20 01/12/20 History aspirin [Aspir-81] 81 mg PO DAILY 01/12/20 01/12/20 History atorvastatin 40 mg PO BEDTIME 01/12/20 01/12/20 History carvedilol 12.5 mg PO BID 01/12/20 01/12/20 History cilostazol 100 mg PO BID 01/12/20 01/12/20 History diazepam 5 mg PO Q6HR PRN 01/12/20 01/12/20 History diltiazem HCl 120 mg PO DAILY 01/12/20 01/12/20 History docusate calcium 240 mg PO BID 01/12/20 01/12/20 History ezetimibe 10 mg PO DAILY 01/12/20 01/12/20 History lidocaine [Lidoderm] 1 patch TOPICAL DAILY 01/12/20 01/12/20 History rivaroxaban [Xarelto] 2.5 mg PO BID 01/12/20 01/12/20 History valsartan 80 mg PO DAILY 01/12/20 01/12/20 History Allergies Allergy/AdvReac Type Severity Reaction Status Date / Time Asrevym-Ven-Ioa Reductase AdvReac Mild Rash Verified 01/12/20 16:28 Inhibitor Review of Systems Review of Systems ROS: Yes All systems reviewed with the patient and are negative except as otherwise documented Exam Vital Signs (past 8 hours): - 01/12/20 16:22 01/12/20 16:45 01/12/20 16:46 Temperature 100.6 F H Pulse Rate 75 76 78 Respiratory Rate 24 Blood Pressure 193/90 H 181/81 H Pulse Oximetry 96 99 99 01/12/20 17:00 01/12/20 17:30 01/12/20 18:00 Temperature Pulse Rate 81 78 82 Respiratory Rate 29 H 32 H Blood Pressure 180/84 H 184/82 H Pulse Oximetry 98 99 98 01/12/20 18:01 01/12/20 18:30 01/12/20 18:31 Temperature Pulse Rate 83 77 80 Respiratory Rate 31 H Blood Pressure 216/101 H 184/79 H Pulse Oximetry 99 98 98 01/12/20 19:00 01/12/20 19:30 01/12/20 19:57 Temperature 99.4 F Pulse Rate 79 82 Respiratory Rate 19 22 Blood Pressure 183/84 H 193/87 H Pulse Oximetry 98 97 01/12/20 20:13 01/12/20 20:23 01/12/20 20:30 Temperature 97.8 F Pulse Rate 79 77 77 Respiratory Rate 12 16 15 Blood Pressure 168/73 H 162/71 H Pulse Oximetry 96 96 94 01/12/20 21:00 01/12/20 21:30 Temperature Pulse Rate 80 76 Respiratory Rate 25 H 17 Blood Pressure 165/85 H 174/80 H Pulse Oximetry 98 96 Oxygen Delivery Method Room Air Narrative Exam Narrative: GENERAL APPEARANCE: well developed, well nourished, brisk responsive and uncomfortable appearing male. HEENT: Normocephalic, PERRLA, conjunctiva clear, EOMs intact without nystagmus, no sinus tenderness to percussion, no rhinorrhea, mucous membranes are moist and pink without lesions or exudate. NECK/THYROID: neck supple, no JVD, no carotid bruit, no thyromegaly, trachea midline. LYMPH NODES: no cervical or supraclavicular lymphadenopathy. SKIN: [place], warm and dry, no visible lesions, rashes, ulcerations or petechiae. HEART: regular rate and rhythm, S1-S2, no murmur, no rubs or gallops, brisk capillary refill, no edema LUNGS: clear to auscultation bilaterally, no coarseness crackles or wheezing, no cough present CHEST: Symmetrical movement, no accessory muscle use, good tidal volume. ABDOMEN: Distended, firm, tympanic to percussion, generalized tenderness on palpation, no organomegaly, right flank or tenderness, hypoactive bowel tones. BACK: Pain palpation right lumbar paraspinal region, no discrete muscle spasms palpated, positive pain with leg lift right greater than left. EXTREMITIES: moves all extremities, strength is 5/5 and symmetrical, no deformities or joint effusions. NEUROLOGIC: AAO x4, decreased sensation right lower extremity, cranial nerves II-XII grossly intact, hearing grossly normal to speech. PSYCH: Good eye contact, impoverished speech with short answer to questions, linear thought process, cooperative, appropriate with stable behavior Objective Labs Result Diagrams: 01/12/20 16:39 01/13/20 00:15 Labs: Laboratory Results - last 24 hr 01/12/20 01/12/20 01/12/20 16:39 16:39 16:39 WBC 14.2 H RBC 4.50 Hgb 11.6 L Hct 35.1 L MCV 78.0 L MCH 25.7 L MCHC 33.0 RDW 21.8 H Plt Count 346 Neut % (Auto) 79.4 H Lymph % (Auto) 9.[address] [place] % (Auto) 10.5 Eos % (Auto) 0.4 L Baso % (Auto) 0.6 Neut # (Auto) 57457 H Lymph # (Auto) 1300 [place] # (Auto) 1500 H Eos # (Auto) 100 Baso # (Auto) 100 RBC Morphology See below Polychromasia 1+ H Hypochromasia 1+ H Microcytosis 1+ H PT 14.5 H INR 1.3 APTT 30 Sodium Potassium Chloride Carbon Dioxide BUN Creatinine Estimated GFR BUN/Creatinine Ratio Glucose Lactate Calcium Total Bilirubin AST ALT Alkaline Phosphatase Total Protein Albumin Globulin Albumin/Globulin Ratio Lipase Procalcitonin 0.06 Urine Color Urine Appearance Urine pH Ur Specific [place] Urine Protein Urine Glucose (UA) Urine Ketones Urine Occult Blood Urine Nitrate Urine Bilirubin Urine Urobilinogen Ur Leukocyte Esterase Urine RBC Urine WBC Ur Squamous Epith Cells Urine Bacteria Ur Culture Indicated? COVID-19 PCR 01/12/20 01/12/20 01/12/20 16:39 16:39 17:10 WBC RBC Hgb Hct MCV MCH MCHC RDW Plt Count Neut % (Auto) Lymph % (Auto) [place] % (Auto) Eos % (Auto) Baso % (Auto) Neut # (Auto) Lymph # (Auto) [place] # (Auto) Eos # (Auto) Baso # (Auto) RBC Morphology Polychromasia Hypochromasia Microcytosis PT INR APTT Sodium 125 L Potassium 4.4 Chloride 93 L Carbon Dioxide 22 BUN 20 Creatinine 0.78 Estimated GFR > 60.0 BUN/Creatinine Ratio 25.6 H Glucose 105 Lactate 0.9 Calcium 8.8 Total Bilirubin 0.6 AST 24 ALT 17 Alkaline Phosphatase 68 Total Protein 7.3 Albumin 3.8 Globulin 3.5 Albumin/Globulin Ratio 1.1 Lipase 56 Procalcitonin Urine Color Urine Appearance Urine pH Ur Specific [place] Urine Protein Urine Glucose (UA) Urine Ketones Urine Occult Blood Urine Nitrate Urine Bilirubin Urine Urobilinogen Ur Leukocyte Esterase Urine RBC Urine WBC Ur Squamous Epith Cells Urine Bacteria Ur Culture Indicated? COVID-19 PCR Negative 01/12/20 18:59 WBC RBC Hgb Hct MCV MCH MCHC RDW Plt Count Neut % (Auto) Lymph % (Auto) [place] % (Auto) Eos % (Auto) Baso % (Auto) Neut # (Auto) Lymph # (Auto) [place] # (Auto) Eos # (Auto) Baso # (Auto) RBC Morphology Polychromasia Hypochromasia Microcytosis PT INR APTT Sodium Potassium Chloride Carbon Dioxide BUN Creatinine Estimated GFR BUN/Creatinine Ratio Glucose Lactate Calcium Total Bilirubin AST ALT Alkaline Phosphatase Total Protein Albumin Globulin Albumin/Globulin Ratio Lipase Procalcitonin Urine Color Yellow Urine Appearance Clear Urine pH 7.0 Ur Specific [place] 1.010 Urine Protein Trace H Urine Glucose (UA) Negative Urine Ketones Negative Urine Occult Blood 3+ H Urine Nitrate Positive Urine Bilirubin Negative Urine Urobilinogen 0.2 Ur Leukocyte Esterase Trace H Urine RBC 5-10/hpf H Urine WBC 5-10/hpf H Ur Squamous Epith Cells None seen Urine Bacteria Many (>30) H Ur Culture Indicated? Specimen cultured COVID-19 PCR Assessment & Plan Assessment & Plan narrative: This is a 69-year-old male patient who is visiting from [facility] presents to the hospital with complaints of persistent back pain development of foul-smelling dark urine who developed a fever today. 1. Acute abdominal pain with right flank pain, present on admission, active -patient with history abdominal surgery with total cystectomy and prostatectomy for bladder cancer and creation of neobladder. CT scan finds distended bowel adjacent to neobladder as well as colonic dilation with fluid and air without obvious evidence of obstruction. Abdomen is distended and tympanic on percussion. -patient with constipation with last bowel movement 6 days ago most likely secondary to opiate use for acute back pain. -patient is NPO, normal saline at 125 cc/hour. -Dr. Verdin has agreed to consult, we appreciate his evaluation recommendations -ordered Dulcolax suppository, MiraLax daily and will evaluate response. 2. Acute Urinary tract infection status post cystectomy with creation of neobladder secondary to bladder cancer, present on admission, active -patient reports no history of colonization secondary to his neobladder and developed foul-smelling urine with fevers. -patient with elevated white count of 14.2, urinalysis reveals trace protein, 3+ occult blood, positive for leukocyte esterase and wbc's with many bacteria. -the patient received 1 g of ceftriaxone in the emergency department. Ordered Zosyn 3.375 g IV every 8 hours. -will check CBC in the morning. 3. Lumbar spine pain, acute, present on admission, active. -patient has been taking oxycodone and tramadol for back pain per [facility] [place]. On discharge with associated patient was prescribed diazepam 5 mg every 6 hours as needed for back spasms. -patient with palpable pain right paraspinal lumbar region with back pain with any attempted leg lift. No radiculopathy. -patient unable to take NSAIDs due to Xarelto therapy. Will continue diazepam per home regimen to which the patient does report benefit. -ordered hydromorphone 0.5-1 mg every 4 hours as needed for pain. -will continue home regimen of topical lidocaine patch. -PT and OT requested to consult, evaluate and treat. 4. Hyponatremia, acute, present on admission, active. -patient is found to have sodium of 125 on admission labs. Hyponatremia also identified during hospitalization [facility]. -patient is alert and oriented with no evidence of cognitive impairment. -the patient received 1 L of normal saline in the emergency department and normal saline 250 cc/hour while in the ED. -order normal saline at 125 cc/hour. -will recheck sodium at midnight to prevent over-correction and recheck chemistries in the morning. 5. Hypertension, chronic, stable -patient with inadequate control of hypertension, blood pressure 193/90 upon arrival improving to 162/71 after arrival the acute care floor. -order hydralazine 10 mg IV as needed for systolic blood pressure greater than 180 or diastolic greater than 100. -will continue carvedilol 12.5 mg twice daily and valsartan 80 mg daily. -will re-evaluate blood pressure with management of above problems. 6. Coronary artery disease, status post CABG 15 years ago, chronic, stable. -patient denies complaints of chest pain, palpitations or shortness of breath. 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 -continue carvedilol 12.5 mg twice daily. -will continue anticoagulation therapy on aspirin 81 mg daily and cilostazol 100 mg twice daily. -order hydralazine 10 mg IV as needed for systolic blood pressure greater than 180 or diastolic greater than 100. 7. Use of long-term anticoagulation, chronic, stable -patient with significant coronary artery disease, peripheral vascular disease having had 9 peripheral stents and a history of CVA. -continue Xarelto 2.5 mg twice daily. 8. Microcytic hypochromic anemia, chronic, stable. -previously diagnosed with iron deficiency anemia with improving course per records from [facility] [place]. -no evidence of blood loss anemia including hematemesis, hematochezia or melena. -will monitor CBC. VTE prophylaxis: Bilateral SCDs, anticoagulated on Xarelto IV fluid: Normal saline 125 cc/hour. Diet: NPO Code status: Full code, patient designates his Susana to be surrogate decision maker. Patient is admitted to the hospital for multiple medical problems unresponsive to outpatient therapy. The patient is admitted due to the severity is symptoms, risk for complications and adverse events. He is admitted as an inpatient with expected length of stay to be greater than 2 midnights. COVID-19 COVID-19 status: Negative Result date/Date tested (Pos, Neg/Pending): 01/12/20 Scores GCS Pat coma scale eye opening: Spontaneous [place] coma scale verbal response: Orientated [place] coma scale motor response: Obey commands Pat coma scale total score: 15
[2020-01-12 22:34] LABS: Magnesium 2.2 mg/dL (1.6-2.3)
[2020-01-12] MEDS: SODIUM CHLORIDE 0.9% 1,000 ML 125 ML IV (23:24)
[2020-01-12] MEDS: carvediloL 12.5 MG TABLET PO (23:25)
[2020-01-12] MEDS: ATORVASTATIN 20 MG TABLET 40 MG PO (23:25)
[2020-01-13] VITALS (14 sets, daily range): BP systolic 133–162; BP diastolic 70–88; PULSE 70–83; RESP 16–18; TEMP 36.4–38.1; O2SAT 96–97
[2020-01-13] MEDS: PIPERACILLIN-TAZO 3.375 GM/50 ML FROZ.PIGGY IV ×3 (00:20→16:10)
[2020-01-13] MEDS: ACETAMINOPHEN 325 MG TABLET 650 MG PO ×3 (00:25→16:09)
[2020-01-13 00:34] LABS: BUN Creatinine Ratio 23.3 (6-22); Blood Urea Nitrogen 17 mg/dL (9-20); Calcium 8.5 mg/dL (8.4-10.2); Carbon Dioxide 20 mmol/L (22-32); Chloride 98 mmol/L (98-107); Estimated Glomerular Filt Rate > 60.0 mL/min (>60); Glucose 102 mg/dL (80-110); HEMOLYSIS < 15 (0-50); Potassium 4.4 mmol/L (3.4-5.1); Sodium 127 mmol/L (137-145)
[2020-01-13] MEDS: HYDROMORPHONE 1 MG INJ IV ×3 (05:33→13:56)
[2020-01-13] MEDS: BISACODYL 10 MG SUPP PR ×2 (05:35→16:09)
[2020-01-13 05:43] LABS: Basophils Absolute Auto 100 /uL (0-100); Basophils Percent Auto 0.7 % (0-2); Eosinophils Absolute Auto 0 /uL (0-450); Eosinophils Percent Auto 0.2 % (2-4); Hematocrit 33.6 % (41-53); Hemoglobin 10.8 g/dL (13.5-17.5); Lymphocytes Absolute Auto 1400 /uL (1100-4500); Lymphocytes Percent Auto 10.8 % (25-40); Mean Corpuscular HGB Conc 32.2 % (30-36); Mean Corpuscular Hemoglobin 25.3 PG (26-34); Mean Corpuscular Volume 78.7 fL (80-100); Monocytes Absolute Auto 1500 /uL (0-900); Monocytes Percent Auto 11.3 % (3-14); Neutrophils Absolute Auto 10000 /uL (1500-7000); Platelet Count 309 X10^3/uL (150-400); Red Blood Cell Count 4.27 X10^6/uL (4.5-5.9); Red Cell Distribution Width 21.2 % (11.6-14.8)
[2020-01-13 05:44] LABS: Blood Urea Nitrogen 17 mg/dL (9-20); Calcium 8.3 mg/dL (8.4-10.2); Carbon Dioxide 23 mmol/L (22-32); Chloride 99 mmol/L (98-107); Estimated Glomerular Filt Rate > 60.0 mL/min (>60); Glucose 101 mg/dL (80-110); HEMOLYSIS < 15 (0-50); Potassium 4.5 mmol/L (3.4-5.1); Sodium 128 mmol/L (137-145)
[2020-01-13 05:56] LABS: Add Manual Diff / Slide Review SLIDE REVIEW
[2020-01-13 06:40] LABS: Anisocytosis 3+
--- NOTE | 2020-01-13 06:57 | DI.RAD.S_ITS ---
PROCEDURE: XR ACUTE ABDOMEN SERIES INDICATIONS: f/u colonic ileus vs obstruction TECHNIQUE: One view chest and two views of the abdomen were acquired. COMPARISON: None. FINDINGS: Surgical changes and devices: Median sternotomy wires and surgical clips are seen.. Chest: Lungs are clear. Heart size is enlarged. No pleural effusions. No pneumoperitoneum. Abdomen: Marked air distended bowel loops are seen throughout the abdomen with a few air-fluid levels. Small amount of air is seen in the region of rectum and sigmoid colon. No suspicious calcifications. Visualized solid organ contours appear normal. Bones: No suspicious bony lesions. IMPRESSION: Air distended small bowel and colon loops concerning for distal colonic obstruction versus ileus. No gross free air. No acute cardiopulmonary pathology. Dictated by: Behzad Chaidez M.D. on 01/13/2020 at 10:01 Approved by: Behzad Chaidez M.D. on 01/13/2020 at 10:02
[2020-01-13] MEDS: SODIUM CHLORIDE 0.9% 1,000 ML 125 ML IV (07:45)
[2020-01-13] MEDS: carvediloL 12.5 MG TABLET PO ×2 (08:07→17:17)
[2020-01-13] MEDS: HYDROMORPHONE 0.5 MG INJ IV (09:13)
[2020-01-13] MEDS: LIDOCAINE PATCH 1 EACH ADH..PATCH TOP (09:13)
[2020-01-13] MEDS: dilTIAZem CD 120 MG CAP PO (09:16)
[2020-01-13] MEDS: DOCUSATE 250 MG CAPSULE PO ×2 (09:16→20:55)
[2020-01-13] MEDS: cilostazoL 50 MG TABLET 100 MG PO ×2 (09:16→21:05)
[2020-01-13] MEDS: EZETIMIBE 10 MG TABLET PO (09:17)
[2020-01-13] MEDS: VALSARTAN 80 MG TABLET PO (09:17)
--- NOTE | 2020-01-13 09:23 | PC.NURSE ---
Addendum entered by Monica Lee R.N. 01/13/20 12:54: Patient up to chair, resting with his eyes closed, breathing unlabored. is bedside. Earlier patient was up with PT and this RN, ambulated to restroom using FWW, unmeasured void. Patient's brief changed. Patient is inc. of urine, this is not baseline. Urinal placed bedside. Patient reports flatus still but no stool. Lab blood results received, copy placed in MD's box, MD aware. Original Note: [facility] unable to obtain Xray due to patient pain level. Patient returned to floor. Patient c/o pain 9/10 in back. Completed IV abx. NS running at 125/hr. Administered PRN narcotics to aid in obtaining Xray. Patient reports he is passing flatus, no stool. Denies N/V, SOB, lightheadedness or dizziness. No other needs at this time. Patient returning to [facility] for Xray at this time.
[2020-01-13] MEDS: ASPIRIN EC 81 MG TABLET PO (10:16)
[2020-01-13] MEDS: RIVAROXABAN 10 MG TABLET 2.5 MG PO ×2 (10:16→20:55)
[2020-01-13] MEDS: polyethylene glycoL 3350 17 GM POWD.PACK PO (10:18)
--- NOTE | 2020-01-13 10:49 | PT.IIE ---
Current Diagnoses Urinary tract infection, site not specified (01/12/20) Surgical History (Last Updated 01/13/20 @ 00:41 by REJI Finney) H/O prostatectomy (Acute) History of total cystectomy (Acute) Hx of CABG (Acute) Medical History (Last Updated 01/13/20 @ 00:40 by REJI Finney) Bladder cancer (Acute) Coronary artery disease (Acute) History of CVA (cerebrovascular accident) (Acute) Hyperlipidemia (Acute) Hypertension (Acute) Peripheral vascular disease (Acute) Physical Therapy Inpatient Evaluation/Re-Eval M1 PT/OT-IP Prior Functional Status Start: 01/13/20 11:39 Freq: NEEDED Status: Active Protocol: Document 01/13/20 10:49 AB (Rec: 01/13/20 12:00 AB [id number]) Medical Review Prior Functional Status Medical History Reviewed Yes Communication able to make needs known Mobility and Gait pt stated that he is independent with all mobilities and ambulation without AD Social History Household Members spouse Number of Stairs To Enter/Railing? P lives on a boat: has 4 step ladder down to the boat with bilateral rails Home Environment High Toilet Additional Social History Comment pt takes his shower on a shower depot per pt pt stated that he has a bunk bed and gets in/out through the foot of the bed M2 PT-IP Current Condition Start: 01/13/20 11:39 Freq: NEEDED Status: Active Protocol: Document 01/13/20 10:49 AB (Rec: 01/13/20 12:00 AB [id number]) Physical Therapy Current Condition Current Condition Evaluation Date 01/13/20 Treatment Diagnosis UTI; difficulty in walking Onset Date 01/12/20 M3 PT-IP Subjective Start: 01/13/20 11:39 Freq: NEEDED Status: Active Protocol: Document 01/13/20 10:49 AB (Rec: 01/13/20 12:00 AB [email or web address]) Subjective Physical Therapy Visit Type Type Initial Evaluation Visit Start Time 10:49 Visit Stop Time 11:25 Total Visit Minutes 36 Number of TORCH BURNER Visits 0 Physical Therapy Visit Comments Patient Comments pt is agreeable to do PT ; c/o increase back pain Therapy Pain Assessment Pain When Pain Assessed During Mobility Pain Present Pain Present Pain Reported Location low back Intensity 10 Scale Used Numeric (0 - 10) Pain Management Techniques Distraction,Modification of Treatment,Re-positioning, Timing of Activity with Medications M4 PT-IP Mobility and Gait Start: 01/13/20 11:39 Freq: NEEDED Status: Active Protocol: Document 01/13/20 10:49 AB (Rec: 01/13/20 12:00 AB [id number]) PT-Bed Mobility Assessment Rolling Type of Rolling Log Rolling Level of Assist Maximal Assistance,1 Person Assistance Supine to Sit Supine to Sit Moderate Assistance,Maximum Assistance,1 Person Assistance ,Bedrails PT-Transfer Assessment Sit to and From Stand Sit to and from Stand Moderate Assistance,Maximum Assistance,1 Person Assistance ,Use of Upper Extremities Equipment Transfer Assistive Device Bed Rail,Front Wheeled Walker Orthotic/Prosthetic Devices or Brace: Yes Transfers Transfer Destination Toilet Transfer Technique ambulated using FWW Transfer Ability Level of Assist Moderate Assistance,Maximum Assistance,1 Person Assistance ,Use of Upper Extremities Comments Mobility Comments completed log roll supine to sit max A and cues. pt was not able to tolerate sitting on EOB and laid back down. c/ o increas back pain and stated that he has to lay back. agreed to try again and completed supine to sit mod to max A. completed sit to stand mod to max A and cues. ambulated to the toilet using FWW mod A. Pt was able to maintain standing min to mod A and cues while using the toilet in standing using FWW for support. pt ambulated out of the toilet. assisted with brief management. nurse in room to assist. PT was able to do one leg stance using FWW for support mod A while nurse assisted with brief managment . pt agreed to sit up on chair. positioned the pt on chair. call light and table placed within reach. Gait Assessment Gait Gait Assistance Required: Moderate Assistance,1 Person Assist Distance (Feet) 10 Able to Maintain Weight Bearing Status Yes During Gait Assistive Devices Assistive Device Gait Belt,Front Wheeled Walker Orthotic/Prosthetic Devices or Brace: No Gait Deviations General Gait Pattern Antalgic,Decreased Stride Length,Decreased Feet Clearance,Step-to Gait Factors Limiting Gait Function Factors Limiting Gait Function Decreased Activity Tolerance, Decreased Strength,Limited Range of Motion,Pain,Poor Balance,Poor Safety Awareness PT-Balance Assessment Sitting Balance and Reactions Static Sitting Balance Ability Good Dynamic Sitting Balance Ability Fair Standing Balance and Reactions Static Standing Balance Ability Poor Dynamic Standing Balance Ability Poor Device Used FWW M5 PT-IP Objective Assessments Start: 01/13/20 11:39 Freq: NEEDED Status: Active Protocol: Document 01/13/20 10:49 AB (Rec: 01/13/20 12:00 AB [id number]) Orientation Orientation/Cognition Level of Alertness Alert Orientation Name,Year,Place,Situation Language Function Ability No Deficits Noted Safety Awareness Decreased Safety Awareness Memory Description Short Term Impaired Gross Range of Motion Lower Extremity ROM Assessment Within Functional Limits Strength Lower Extremity Strength Assessment Bilaterally Impaired Comments Strength Comments RLE 3+/5 LLE 4-/5 Coordination Assessment Gross Coordination Gross Coordination WNL Sensation Assessment Sensation Gross Sensation WNL Muscle Tone Muscle Tone WNL Yes M6 PT-IP Treatment Start: 01/13/20 11:39 Freq: NEEDED Status: Active Protocol: Document 01/13/20 10:49 AB (Rec: 01/13/20 12:00 AB [id number]) Physical Therapy Treatment Education Education Provided Safety M7 PT-IP Assessment and Plan Start: 01/13/20 11:39 Freq: NEEDED Status: Active Protocol: Document 01/13/20 10:49 AB (Rec: 01/13/20 12:00 AB [id number]) PT Summary Assessment and Plan Potential Rehabilitation Potential Good Status of Condition at Evaluation Evolving Summary Impairments Pain,ROM,Strength,Balance, Cognition,Bed Mobility, Transfers,Gait,Activity Tolerance Assessment Summary pt requiring mod to max A with all mobilities using FWW and unable to tolerate much activity due to c/o back pain. pt with h/o bladder CA s/p surgery last march 2019. pt needs to be more functional and independent than current mobility level to be able to safely go home. pt lives on a boat and has 4 step ladder to go down to. Will continue to assess progress but at this time will require SNF rehab. Goals Bed Mobility Goal Independent Transfer Goal Independent,Front Wheeled Walker Gait Goal Independent,Front Wheel Walker Gait Distance 150 Other Goals up/down 4 step ladder using bilateral rails ambulation without AD 200 ft SBA Frequency of Treatment Frequency Of Treatment Once a Day Treatment Plan Physical Therapy Treatment Plan Bed Mobility Training,Transfer Training,Gait Training, Therapeutic Exercise,Balance Retraining,Post Op Education, Discharge Planning,Hot or Cold Pack,Neuromuscular Re-ed, Coordination Retraining,Manual Therapy Other Recommendations and Next Treatment ambulation, caregiver training Focus when appropriate Recommendations To Nursing Amount of Assist Needed 1 Person Assist Discharge Recommendations PT Discharge Recommendations SNF Rehab Equipment Needed for Home Before FWW if not safe without AD Discharge Transportation Needs at Discharge Private Vehicle,Wheelchair/ Cabulance
[2020-01-13 12:18] LABS: Acinetobacter baumannii Not Detected (Not Detect); Candida albicans Not Detected (Not Detect); Candida glabrata Not Detected (Not Detect); Candida krusei Not Detected (Not Detect); Candida parapsilosis Not Detected (Not Detect); Candida tropicalis Not Detected (Not Detect); E. coli Not Detected (Not Detect); Enterobacter cloacae complex Not Detected (Not Detect); Enterobacteriaceae species Not Detected (Not Detect); Enterococcus species Detected (Not Detect); Haemophilus influenzae Not Detected (Not Detect); KPC (carbapenem-resist gene) Not Detected (Not Detect); Listeria monocytogenes Not Detected (Not Detect); Methicillin-resistant gene Not Detected (Not Detect); Neisseria meningitidis Not Detected (Not Detect); Proteus species Not Detected (Not Detect); Pseudomonas aeruginosa Not Detected (Not Detect); Serratia marcescens Not Detected (Not Detect); Staphylococcus species Not Detected (Not Detect); Streptococcus agalactiae (Gr B Not Detected (Not Detect); Streptococcus pneumonia Not Detected (Not Detect); Streptococcus pyogenes (Gr A) Not Detected (Not Detect); Streptococcus species Not Detected (Not Detect); Vancomycin-rest genes A/B Not Detected (Not Detect)
--- NOTE | 2020-01-13 13:48 | CM.DANOTE ---
DCP/Assessment: Reviewed chart. Patient admitted [facility] with fever/back pain. PCP listed is [facility]. Primary payor is 1) Medicare 2)[employer]. Met with patient and spouse/Susana explained CM/SW role. Patient alert and oriented resting in bed at time of visit. Patient seen by therapy and SNF recommended. Patient and spouse report that they reside on boat that they have at [place]. Patient hasn't had any back issues until the last week. Spouse reports that patient has hardly been able to move. Surgery consult ordered and no surgery indicated at this time. Patient is being treated with IV abx for kidney infection. Patient currently inpatient status and does qualify for SNF under Medicare guidelines. Patient and spouse very agreeable. SNF list provided and [facility] is first choice. RESEARCH LEADER placed call to September requesting that they review. Earliest d/c would be 01-15-20. P: Pending. Anticipate SNF when medically stable. Patient's assisted plan is to return to I status and return to his boat. DEVANG Pickens Discharge Planning/Care Management CM Discharge Assessment Start: 01/13/20 13:45 Freq: Status: Active Protocol: Document 01/13/20 13:45 KJS (Rec: 01/13/20 13:48 KJS [id number]) Discharge Planning Assessment Assigned Warp Hand DEVANG Pickens Contact Information Susana Chu (spouse) [phone] Advance Directives? No Advance Directives on File No History Provided By Patient,Significant Other, Medical Record Comment Patient resides on 38ft boat at [place]. Household Members spouse Type of transporation used prior to Drives own vehicle admit Independent with ADL's Yes Is patient alert and oriented? Yes Caregiver for Another No Patient/Family Preference Penitentiary Facility Barriers to Discharge No Discharge Plan Penitentiary Facility Transportation Arrangement Facility Referrals Initiated Penitentiary Additional Comment First SNF choice is [facility] Medicare Choice List Provided Yes SNF/HH Preference [facility] Contact Name/Phone September phone# [phone] Has Agency SNF been contacted Yes Whiteboard Updated in Patient Room with Yes name and ext. # of Warp Hand Review Status In Process Next Review Type Continued Stay Review
--- NOTE | 2020-01-13 15:02 | DI.MRI.S_ITS ---
PROCEDURE: MR LUMBAR SPINE WO/W CON INDICATIONS: back pain history of prostate and bladder cancer TECHNIQUE: Noncontrast sagittal T1 spin echo and T2 fast spin echo, sagittal STIR, axial T1 and T2 fast spin echo through the lumbar spine. In cases with scoliosis, additional coronal T2 fast spin echo may be performed. After the administration of contrast, sagittal and axial T1 spin echo with fat saturation through the lumbar spine. COMPARISON: [facility], CT, CT ABDOMEN PELVIS W CON, 01/12/2020, 20:02. [facility], CR, XR ACUTE ABDOMEN SERIES, 01/13/2020, 7:55. FINDINGS: Image quality: Excellent. Alignment and curvature: There is trace retrolisthesis of L3 on L4, L4 on L5 and L5 on S1. Marrow: Marrow is of normal overall signal. Prominent reactive endplate changes are present at L2-3. Schmorl's nodes are noted along the inferior endplate of L2 and superior endplate of L3. No acute vertebral body compression fractures. No suspicious marrow enhancement. Spinal cord: Conus medullaris terminates at the T12-L1 level. Visualized spinal cord demonstrates normal signal, without suspicious enhancement. Paraspinous soft tissues: No paravertebral masses or abnormal enhancement. Discs: Severe desiccation is present throughout the lumbar spine. L1-L2: Mild disc bulge with severe spinal stenosis and mild canal compression. Moderate bilateral foraminal narrowing with facet and ligamentum flavum hypertrophy. Mild epidural lipomatosis. L2-L3: Mild disc bulge with severe spinal stenosis and canal compression. Moderate bilateral foraminal narrowing with facet and ligamentum flavum hypertrophy. L3-L4: Mild disc bulge with severe spinal stenosis and canal compression. Severe left and moderate to severe right foraminal narrowing with facet and ligamentum flavum hypertrophy. Mild epidural lipomatosis. L4-L5: Severe disc bulge with canal compression. Severe bilateral foraminal narrowing with facet and ligamentum flavum hypertrophy. L5-S1: Mild disc bulge with moderate spinal stenosis. Severe bilateral foraminal narrowing with nerve root flattening bilaterally, right greater than left. Facet hypertrophy is present. IMPRESSION: 1. Significant multilevel degenerative changes as above. 2. Multilevel severe foraminal narrowing with canal compression secondary to disc bulge with contributing affective facet/ligamentum flavum arthropathy as above. 3. Multilevel foraminal narrowing most severe at L5-S1 with mild flattening of the exiting nerve roots bilaterally, right greater than left predominantly secondary to facet arthropathy with contributing effect of retrolisthesis. Dictated by: Rima Lay M.D. on 01/13/2020 at 17:20 Approved by: Rima Lay M.D. on 01/13/2020 at 17:26
--- NOTE | 2020-01-13 15:48 | OT.IPNOTE ---
Pt at MRI, not available to be seen for OT eval, to check on pt tomorrow.
[2020-01-13] MEDS: OXYCODONE 5 MG/5 ML ORAL SOLUTION 10 MG PO ×2 (16:08→20:54)
[2020-01-13] MEDS: BISACODYL 5 MG TABLET 10 MG PO (16:09)
[2020-01-13] MEDS: MAGNESIUM CITRATE 300 ML SOLUTION 150 ML PO (16:11)
--- NOTE | 2020-01-13 17:22 | PM.PN.1 ---
Subjective Subjective Date Patient Seen: 01/13/20 Interval history: The patient is admitted to the hospital for recurrent back pain. In addition he reports constipation. He has had no BM for about 1 week. In addition he has had fever. His urine and blood cultures are positive blood culture for Enterococcus urine culture for Gram-positive cocci. The patient reports his back pain never improved after discharge from [facility]. They performed lumbosacral spine films but did not do any CT scanning of his spine or MRI. Patient is in significant discomfort and does not appear to get good relief with Valium or pain medication. Exam Vital Signs (past 8 hours): - 01/13/20 11:55 01/13/20 16:13 01/13/20 17:17 Temperature 98.7 F 99.0 F Pulse Rate 78 72 72 Respiratory Rate 16 18 Blood Pressure 162/88 H 156/73 H 156/73 H Pulse Oximetry 97 97 Oxygen Delivery Method Room Air Oxygen Flow Rate 0 Narrative Exam Narrative: Ill-appearing male lying in bed uncomfortable Lungs: Clear to auscultation Cardiac exam: Regular rate and rhythm normal S1-S2 with a soft 2/6 systolic ejection Abdomen: Soft nontender nondistended Extremities: Straight leg raise negative bilaterally patient can internally and externally rotate the hips without difficulty. Back: Patient complains of pain with palpation of the bilateral paraspinous muscles, he does have some sacroiliac pain with palpation as well. No edema noted Objective Labs Result Diagrams: 01/13/20 05:20 01/13/20 05:20 Labs: Laboratory Results - last 24 hr 01/12/20 01/12/20 01/12/20 16:39 16:39 16:39 WBC RBC Hgb Hct MCV MCH MCHC RDW Plt Count Neut % (Auto) Lymph % (Auto) [place] % (Auto) Eos % (Auto) Baso % (Auto) Neut # (Auto) Lymph # (Auto) [place] # (Auto) Eos # (Auto) Baso # (Auto) RBC Morphology See below Polychromasia 1+ H Hypochromasia 1+ H Anisocytosis Microcytosis 1+ H Sodium Potassium Chloride Carbon Dioxide BUN Creatinine Estimated GFR BUN/Creatinine Ratio Glucose Calcium Magnesium 2.2 Procalcitonin 0.06 Urine Color Urine Appearance Urine pH Ur Specific [place] Urine Protein Urine Glucose (UA) Urine Ketones Urine Occult Blood Urine Nitrate Urine Bilirubin Urine Urobilinogen Ur Leukocyte Esterase Urine RBC Urine WBC Ur Squamous Epith Cells Urine Bacteria Ur Culture Indicated? A. baumannii (PCR) Jessica albicans (PCR) C. glabrata (PCR) C. krusei (PCR) C. parapsilosis (PCR) C. tropicalis (PCR) COVID-19 PCR Enterobacteriac sp PCR E. cloacae complex PCR Enterococcus sp PCR E. coli (PCR) H. influenzae (PCR) Klebsiella oxytoca PCR Klebsiella pneumoniae List. monocytogenes PCR N. meningitidis (PCR) Proteus species (PCR) Serratia marcescens PCR Staphylococcus sp PCR Staph aureus (PCR) mecA-Methicil Res Gene Streptococcus sp PCR Group A Strep (PCR) Strep agalactiae (PCR) Strep pneumoniae (PCR) P. aeruginosa (PCR) Alvino/B-Vanco Res Genes KPC-Carbap Res Gene PCR 01/12/20 01/12/20 01/12/20 16:49 17:10 18:59 WBC RBC Hgb Hct MCV MCH MCHC RDW Plt Count Neut % (Auto) Lymph % (Auto) [place] % (Auto) Eos % (Auto) Baso % (Auto) Neut # (Auto) Lymph # (Auto) [place] # (Auto) Eos # (Auto) Baso # (Auto) RBC Morphology Polychromasia Hypochromasia Anisocytosis Microcytosis Sodium Potassium Chloride Carbon Dioxide BUN Creatinine Estimated GFR BUN/Creatinine Ratio Glucose Calcium Magnesium Procalcitonin Urine Color Yellow Urine Appearance Clear Urine pH 7.0 Ur Specific [place] 1.010 Urine Protein Trace H Urine Glucose (UA) Negative Urine Ketones Negative Urine Occult Blood 3+ H Urine Nitrate Positive Urine Bilirubin Negative Urine Urobilinogen 0.2 Ur Leukocyte Esterase Trace H Urine RBC 5-10/hpf H Urine WBC 5-10/hpf H Ur Squamous Epith Cells None seen Urine Bacteria Many (>30) H Ur Culture Indicated? Specimen cultured A. baumannii (PCR) Not detected Jessica albicans (PCR) Not detected C. glabrata (PCR) Not detected C. krusei (PCR) Not detected C. parapsilosis (PCR) Not detected C. tropicalis (PCR) Not detected COVID-19 PCR Negative Enterobacteriac sp PCR Not detected E. cloacae complex PCR Not detected Enterococcus sp PCR Detected H E. coli (PCR) Not detected H. influenzae (PCR) Not detected Klebsiella oxytoca PCR Not detected Klebsiella pneumoniae Not detected List. monocytogenes PCR Not detected N. meningitidis (PCR) Not detected Proteus species (PCR) Not detected Serratia marcescens PCR Not detected Staphylococcus sp PCR Not detected Staph aureus (PCR) Not detected mecA-Methicil Res Gene Not detected Streptococcus sp PCR Not detected Group A Strep (PCR) Not detected Strep agalactiae (PCR) Not detected Strep pneumoniae (PCR) Not detected P. aeruginosa (PCR) Not detected Alvino/B-Vanco Res Genes Not detected KPC-Carbap Res Gene PCR Not detected 01/13/20 01/13/20 01/13/20 00:15 05:20 05:20 WBC 13.0 H RBC 4.27 L Hgb 10.8 L Hct 33.6 L MCV 78.7 L MCH 25.3 L MCHC 32.2 RDW 21.2 H Plt Count 309 Neut % (Auto) 77.0 H Lymph % (Auto) 10.8 L [place] % (Auto) 11.3 Eos % (Auto) 0.2 L Baso % (Auto) 0.7 Neut # (Auto) 51440 H Lymph # (Auto) 1400 [place] # (Auto) 1500 H Eos # (Auto) 0 Baso # (Auto) 100 RBC Morphology See below Polychromasia Hypochromasia Anisocytosis 3+ H Microcytosis Sodium 127 L 128 L Potassium 4.4 4.5 Chloride 98 99 Carbon Dioxide 20 L 23 BUN 17 17 Creatinine 0.73 0.81 Estimated GFR > 60.0 > 60.0 BUN/Creatinine Ratio 23.3 H 21.0 Glucose 102 101 Calcium 8.5 8.3 L Magnesium Procalcitonin Urine Color Urine Appearance Urine pH Ur Specific [place] Urine Protein Urine Glucose (UA) Urine Ketones Urine Occult Blood Urine Nitrate Urine Bilirubin Urine Urobilinogen Ur Leukocyte Esterase Urine RBC Urine WBC Ur Squamous Epith Cells Urine Bacteria Ur Culture Indicated? A. baumannii (PCR) Jessica albicans (PCR) C. glabrata (PCR) C. krusei (PCR) C. parapsilosis (PCR) C. tropicalis (PCR) COVID-19 PCR Enterobacteriac sp PCR E. cloacae complex PCR Enterococcus sp PCR E. coli (PCR) H. influenzae (PCR) Klebsiella oxytoca PCR Klebsiella pneumoniae List. monocytogenes PCR N. meningitidis (PCR) Proteus species (PCR) Serratia marcescens PCR Staphylococcus sp PCR Staph aureus (PCR) mecA-Methicil Res Gene Streptococcus sp PCR Group A Strep (PCR) Strep agalactiae (PCR) Strep pneumoniae (PCR) P. aeruginosa (PCR) Alvino/B-Vanco Res Genes KPC-Carbap Res Gene PCR Assessment & Plan Assessment & Plan narrative: Assessment & Plan narrative: This is a 69-year-old male patient who is visiting from [facility] presents to the hospital with complaints of persistent back pain development of foul-smelling dark urine who developed a fever today. 1. Acute abdominal pain with right flank pain, present on admission, active -patient with history abdominal surgery with total cystectomy and prostatectomy for bladder cancer and creation of neobladder. CT scan finds distended bowel adjacent to neobladder as well as colonic dilation with fluid and air without obvious evidence of obstruction. Abdomen is distended and tympanic on percussion. -patient with constipation with last bowel movement 6 days ago most likely secondary to opiate use for acute back pain. -patient is NPO, normal saline at 125 cc/hour. -Dr. Verdin has agreed to consult, we appreciate his evaluation recommendations -ordered Dulcolax suppository, MiraLax daily and will evaluate response. -no evidence of bowel obstruction -PATIENT APPEARS TO HAVE SIGNIFICANT OBSTIPATION/CONSTIPATION -WILL CONTINUE AGGRESSIVE BOWEL PROGRAM -will advance diet as tolerated 2. Acute Urinary tract infection status post cystectomy with creation of neobladder secondary to bladder cancer, present on admission, active -patient reports no history of colonization secondary to his neobladder and developed foul-smelling urine with fevers. -patient with elevated white count of 14.2, urinalysis reveals trace protein, 3+ occult blood, positive for leukocyte esterase and wbc's with many bacteria. -the patient received 1 g of ceftriaxone in the emergency department. Ordered Zosyn 3.375 g IV every 8 hours. -will check CBC in the morning. -white count still elevated at 13, patient remains on Zosyn -urine culture growing g positive cocci, blood cultures growing Enterococcus -will await final culture and sensitivity will continue antibiotic and follow-up white blood cell count tomorrow - 3. Lumbar spine pain, acute, present on admission, active. -patient has been taking oxycodone and tramadol for back pain per [facility]. On discharge with associated patient was prescribed diazepam 5 mg every 6 hours as needed for back spasms. -patient with palpable pain right paraspinal lumbar region with back pain with any attempted leg lift. No radiculopathy. -patient unable to take NSAIDs due to Xarelto therapy. Will continue diazepam per home regimen to which the patient does report benefit. -ordered hydromorphone 0.5-1 mg every 4 hours as needed for pain. -will continue home regimen of topical lidocaine patch. -PT and OT requested to consult, evaluate and treat. -MRI of lumbar spine pending -consider ortho consult if the patient does not make improvement with PT and OT 4. Hyponatremia, acute, present on admission, active. -patient is found to have sodium of 125 on admission labs. Hyponatremia also identified during hospitalization [facility]. -patient is alert and oriented with no evidence of cognitive impairment. -the patient received 1 L of normal saline in the emergency department and normal saline 250 cc/hour while in the ED. -order normal saline at 125 cc/hour. -will recheck sodium at midnight to prevent over-correction and recheck chemistries in the morning. 5. Hypertension, chronic, stable -patient with inadequate control of hypertension, blood pressure 193/90 upon arrival improving to 162/71 after arrival the acute care floor. -order hydralazine 10 mg IV as needed for systolic blood pressure greater than 180 or diastolic greater than 100. -will continue carvedilol 12.5 mg twice daily and valsartan 80 mg daily. -will re-evaluate blood pressure with management of above problems. 6. Coronary artery disease, status post CABG 15 years ago, chronic, stable. -patient denies complaints of chest pain, palpitations or shortness of breath. 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 -continue carvedilol 12.5 mg twice daily. -will continue anticoagulation therapy on aspirin 81 mg daily and cilostazol 100 mg twice daily. -order hydralazine 10 mg IV as needed for systolic blood pressure greater than 180 or diastolic greater than 100. 7. Use of long-term anticoagulation, chronic, stable -patient with significant coronary artery disease, peripheral vascular disease having had 9 peripheral stents and a history of CVA. -continue Xarelto 2.5 mg twice daily. 8. Microcytic hypochromic anemia, chronic, stable. -previously diagnosed with iron deficiency anemia with improving course per records from [facility]. -no evidence of blood loss anemia including hematemesis, hematochezia or melena. -will monitor CBC. VTE prophylaxis: Bilateral SCDs, anticoagulated on Xarelto IV fluid: Normal saline 125 cc/hour. Diet: NPO Code status: Full code, patient designates his Susana to be surrogate decision maker. Quality VTE Deep Vein Thrombosis/Pulmonary Embolism Present on Admission: No
[2020-01-13] MEDS: MAG HYDROX/ALUM/SIMETH 30 ML UDC PO (20:54)
[2020-01-13] MEDS: ATORVASTATIN 20 MG TABLET 40 MG PO (20:55)
[2020-01-13] MEDS: AMPICILLIN 2,000 MG in SODIUM CHLORIDE 0.9% 100 ML 200 ML IV (21:10)
--- NOTE | 2020-01-13 22:08 | PC.NURSE ---
Patient had moderate BM mid shift, and is passing gas, bowel tones hypoactive. Still having lower back pain 8/ Q4 Oxycodone 10mg liquid suspension given PRN. No coverage for BS 97,100 on this shift.
[2020-01-14] VITALS (15 sets, daily range): BP systolic 137–191; BP diastolic 71–99; PULSE 75–89; RESP 17–20; TEMP 36.3–37.7; O2SAT 93–96
[2020-01-14] MEDS: AMPICILLIN 2,000 MG in SODIUM CHLORIDE 0.9% 100 ML 200 ML IV ×7 (00:32→23:49)
[2020-01-14] MEDS: LIDOCAINE PATCH 1 EACH ADH..PATCH TOP (05:26)
--- NOTE | 2020-01-14 06:36 | PC.NURSE ---
ICU informed this nurse that pt had a 20 beat run of V tach at approx. 0540. Pt was asymptomatic, denying chest pain, pressure diaphoresis. REGULATORY SUBMISSIONS ASSOCIATE Ga had been notified. No new orders at this time.
[2020-01-14] MEDS: OXYCODONE 5 MG/5 ML ORAL SOLUTION 10 MG PO ×2 (06:51→10:59)
[2020-01-14 07:14] LABS: Add Manual Diff / Slide Review NO; Basophils Absolute Auto 100 /uL (0-100); Basophils Percent Auto 1.2 % (0-2); Eosinophils Absolute Auto 100 /uL (0-450); Eosinophils Percent Auto 0.8 % (2-4); Hemoglobin 10.3 g/dL (13.5-17.5); Lymphocytes Absolute Auto 1200 /uL (1100-4500); Lymphocytes Percent Auto 10.9 % (25-40); Mean Corpuscular HGB Conc 33.1 % (30-36); Mean Corpuscular Hemoglobin 25.8 PG (26-34); Mean Corpuscular Volume 77.8 fL (80-100); Monocytes Absolute Auto 1300 /uL (0-900); Monocytes Percent Auto 11.8 % (3-14); Neutrophils Absolute Auto 8500 /uL (1500-7000); Neutrophils Percent Auto 75.3 % (50-75); Platelet Count 324 X10^3/uL (150-400); Red Blood Cell Count 3.98 X10^6/uL (4.5-5.9); Red Cell Distribution Width 21.3 % (11.6-14.8); White Blood Cell Count 11.2 X10^3/uL (4.5-11.0)
[2020-01-14 07:15] LABS: BUN Creatinine Ratio 24.6 (6-22); Blood Urea Nitrogen 17 mg/dL (9-20); Calcium 8.2 mg/dL (8.4-10.2); Carbon Dioxide 24 mmol/L (22-32); Chloride 97 mmol/L (98-107); Estimated Glomerular Filt Rate > 60.0 mL/min (>60); Glucose 96 mg/dL (80-110); HEMOLYSIS < 15 (0-50); Potassium 4.3 mmol/L (3.4-5.1); Sodium 127 mmol/L (137-145)
[2020-01-14 07:32] LABS: Magnesium 2.1 mg/dL (1.6-2.3)
--- NOTE | 2020-01-14 07:48 | DI.RAD.S_ITS ---
PROCEDURE: XR ACUTE ABDOMEN SERIES INDICATIONS: Resolution of colonic ileus? TECHNIQUE: One view chest and two views of the abdomen were acquired. COMPARISON: [facility], CT, CT ABDOMEN PELVIS W CON, 01/12/2020, 20:02. [facility], MR, MR LUMBAR SPINE WO/W CON, 01/13/2020, 15:23. [facility], CR, XR ACUTE ABDOMEN SERIES, 01/13/2020, 7:55. FINDINGS: Surgical changes and devices: Post CABG changes are seen. Bilateral neck clips are also seen. Bilateral proximal common iliac stents are seen. Chest: Lungs are clear. Heart size is normal. No pleural effusions. No pneumoperitoneum. Abdomen: Gaseous distension of the colon can be seen, which measures up to 7.7 cm. Air-fluid levels are seen within the colon. Dilated loops of small bowel are seen, which measure up to 4.7 cm. Potential differential air-fluid levels can be seen within the small bowel. No suspicious calcifications. Visualized solid organ contours appear normal. Bones: No suspicious bony lesions. Age-appropriate bony degenerative changes are seen. IMPRESSION: Distended colon and small bowel, most likely related to ileus. Differential diagnosis includes small bowel obstruction, however. Please consider continued follow-up. Postoperative and degenerative changes are seen. Dictated by: Tab Raphael M.D. on 01/14/2020 at 9:08 Approved by: Tab aRphael M.D. on 01/14/2020 at 9:11
--- NOTE | 2020-01-14 08:06 | P.CONS_ITS ---
History of Present Illness Consult details Date Patient Seen: 01/14/20 Time Patient Seen: 08:06 Chief complaint: fever / back pain Reason for consult: Incapacitating back pain Requesting provider: Rose Garsia Narrative: Consultation was requested because Aman's having incapacitating back pain. He was on his boat which she lives on in [place] which is a sailboat he was getting into his boat when he developed the acute onset of severe back pain. It progress into progressed to the extent that he went to [facility] [place] and was admitted to the hospital because he was unable to care for himself. He then was transferred to [facility] for further evaluation. He notes it has been about 7 days since he has had a bowel movement although the nurse's note that he did have a small stool today. He also was worked up with blood cultures 1 of which is positive for enterococcus and urine cultures which have a g positive cocci. He denies any leg pain. He does note fairly substantial and incapacitating back pain which is worse when he gets out of bed. He does not note any new numbness or weakness in his legs he does have a history of a stroke with some residuals on the right side. Meds Home Medications and Allergies Home Medications Medication Instructions Recorded Confirmed Type acetaminophen 650 mg PO Q4H PRN 01/12/20 01/12/20 History aspirin [Aspir-81] 81 mg PO DAILY 01/12/20 01/12/20 History atorvastatin 40 mg PO BEDTIME 01/12/20 01/12/20 History carvedilol 12.5 mg PO BID 01/12/20 01/12/20 History cilostazol 100 mg PO BID 01/12/20 01/12/20 History diazepam 5 mg PO Q6HR PRN 01/12/20 01/12/20 History diltiazem HCl 120 mg PO DAILY 01/12/20 01/12/20 History docusate calcium 240 mg PO BID 01/12/20 01/12/20 History ezetimibe 10 mg PO DAILY 01/12/20 01/12/20 History lidocaine [Lidoderm] 1 patch TOPICAL DAILY 01/12/20 01/12/20 History rivaroxaban [Xarelto] 2.5 mg PO BID 01/12/20 01/12/20 History valsartan 80 mg PO DAILY 01/12/20 01/12/20 History Allergies Allergy/AdvReac Type Severity Reaction Status Date / Time [id number]-[id number] Reductase AdvReac Mild Rash Verified 01/12/20 16:28 Inhibitor Review of Systems Review of Systems Narrative: Has noted some fever and malaise it is improving denies any change in his urological output but he does has had bladder cancer and previous urological surgery. Exam Vital Signs (past 8 hours): - 01/14/20 02:00 01/14/20 05:00 01/14/20 06:00 Temperature 98.6 F Pulse Rate 86 Respiratory Rate 18 Blood Pressure 148/85 H Pulse Oximetry 96 94 94 Oxygen Delivery Method Room Air Oxygen Flow Rate 0 Narrative Exam Narrative: She is resting comfortably in bed does note some pain when he attempts to turn side to side is abdomen is distended but soft and only minimally tender to palpation is no pain with range of motion into his hips bilaterally he can fire both lower extremity quad hamstring gastrocsoleus, tibialis anterior without significant weakness or no numbness in bilateral lower extremities back is tenderness to palpation. Objective Labs Result Diagrams: 01/14/20 06:40 01/14/20 06:40 Labs: Laboratory Results - last 24 hr 01/12/20 01/14/20 01/14/20 16:49 06:40 06:40 WBC 11.2 H RBC 3.98 L Hgb 10.3 L Hct 31.0 L MCV 77.8 L MCH 25.8 L MCHC 33.1 RDW 21.3 H Plt Count 324 Neut % (Auto) 75.3 H Lymph % (Auto) 10.9 L [place] % (Auto) 11.8 Eos % (Auto) 0.8 L Baso % (Auto) 1.2 Neut # (Auto) 8500 H Lymph # (Auto) 1200 [place] # (Auto) 1300 H Eos # (Auto) 100 Baso # (Auto) 100 Sodium 127 L Potassium 4.3 Chloride 97 L Carbon Dioxide 24 BUN 17 Creatinine 0.69 Estimated GFR > 60.0 BUN/Creatinine Ratio 24.6 H Glucose 96 Calcium 8.2 L Magnesium A. baumannii (PCR) Not detected Jessica albicans (PCR) Not detected C. glabrata (PCR) Not detected C. krusei (PCR) Not detected C. parapsilosis (PCR) Not detected C. tropicalis (PCR) Not detected Enterobacteriac sp PCR Not detected E. cloacae complex PCR Not detected Enterococcus sp PCR Detected H E. coli (PCR) Not detected H. influenzae (PCR) Not detected Klebsiella oxytoca PCR Not detected Klebsiella pneumoniae Not detected List. monocytogenes PCR Not detected N. meningitidis (PCR) Not detected Proteus species (PCR) Not detected Serratia marcescens PCR Not detected Staphylococcus sp PCR Not detected Staph aureus (PCR) Not detected mecA-Methicil Res Gene Not detected Streptococcus sp PCR Not detected Group A Strep (PCR) Not detected Strep agalactiae (PCR) Not detected Strep pneumoniae (PCR) Not detected P. aeruginosa (PCR) Not detected Alvino/B-Vanco Res Genes Not detected KPC-Carbap Res Gene PCR Not detected 01/14/20 06:40 WBC RBC Hgb Hct MCV MCH MCHC RDW Plt Count Neut % (Auto) Lymph % (Auto) [place] % (Auto) Eos % (Auto) Baso % (Auto) Neut # (Auto) Lymph # (Auto) [place] # (Auto) Eos # (Auto) Baso # (Auto) Sodium Potassium Chloride Carbon Dioxide BUN Creatinine Estimated GFR BUN/Creatinine Ratio Glucose Calcium Magnesium 2.1 A. baumannii (PCR) Jessica albicans (PCR) C. glabrata (PCR) C. krusei (PCR) C. parapsilosis (PCR) C. tropicalis (PCR) Enterobacteriac sp PCR E. cloacae complex PCR Enterococcus sp PCR E. coli (PCR) H. influenzae (PCR) Klebsiella oxytoca PCR Klebsiella pneumoniae List. monocytogenes PCR N. meningitidis (PCR) Proteus species (PCR) Serratia marcescens PCR Staphylococcus sp PCR Staph aureus (PCR) mecA-Methicil Res Gene Streptococcus sp PCR Group A Strep (PCR) Strep agalactiae (PCR) Strep pneumoniae (PCR) P. aeruginosa (PCR) Alvino/B-Vanco Res Genes KPC-Carbap Res Gene PCR MRI scan shows spinal stenosis of which is quite size severe specially at L4-5 but not consistent with a cauda equina syndrome. Assessment & Plan Assessment & Plan narrative: Impression severe low back pain with spinal stenosis and facet arthropathy. Recommendations and plan I do not see anything that mandates operative intervention. I think he needs to be mobilized with physical therapy and to use a back brace. He ultimately may be a candidate for cortisone injections but he needs to be infection free for about a week prior to consideration of any cortisone intervention.
[2020-01-14] MEDS: HYDROMORPHONE 1 MG INJ IV ×2 (08:09→17:43)
[2020-01-14 08:16] LABS: Anisocytosis 2+; Burr Cells 1+; Poikilocytosis 2+
[2020-01-14] MEDS: ASPIRIN EC 81 MG TABLET PO (09:14)
[2020-01-14] MEDS: carvediloL 12.5 MG TABLET PO ×2 (09:14→17:03)
[2020-01-14] MEDS: polyethylene glycoL 3350 17 GM POWD.PACK PO ×2 (09:15→15:03)
[2020-01-14] MEDS: RIVAROXABAN 10 MG TABLET 2.5 MG PO ×2 (09:15→20:44)
[2020-01-14] MEDS: DOCUSATE 250 MG CAPSULE PO ×2 (09:16→20:43)
[2020-01-14] MEDS: VALSARTAN 80 MG TABLET PO (09:16)
[2020-01-14] MEDS: EZETIMIBE 10 MG TABLET PO (09:16)
[2020-01-14] MEDS: cilostazoL 50 MG TABLET 100 MG PO ×2 (09:16→20:46)
[2020-01-14] MEDS: dilTIAZem CD 120 MG CAP PO (09:16)
[2020-01-14] MEDS: methocarbamoL 500 MG TABLET 750 MG PO ×2 (11:00→18:56)
[2020-01-14] MEDS: ACETAMINOPHEN 325 MG TABLET 650 MG PO ×4 (11:00→22:32)
--- NOTE | 2020-01-14 14:31 | PC.NURSE ---
IT APPLICATIONS ANALYST reported patient had clots in urine and that urine was viscous and cloudy. Information was reported to Dr. Vieira at 1420. Patient is on IV ABX for gram positive cocci in urine. Back pain 12/07 this day, patient medicated w/ PRN oxycodone 10mg, Tylenol PRN Q6, and Methocarbamol PRN TID, this seemed have some relief for patient with this combination / pain level was achieved.
--- NOTE | 2020-01-14 14:42 | P.PN_ITS ---
Subjective Subjective Date Patient Seen: 01/14/20 Interval history: Aman Chu is a 69-year-old male with a past medical history significant for CAD status post coronary artery bypass grafting, CVA with residual right leg numbness on anticoagulation with Xarelto, hypertension, hyperlipidemia, diabetes mellitus type 2, non-insulin using and diet-controlled, bladder cancer status po st cystectomy with formation of neobladder (03/2019) who presented to the ED with fever, dark colored urine and persistent intractable lumbar back pain. Overnight: Patient had nonsustained asymptomatic run of V-tach times 20 beats this morning at 05:38. Electrolytes within normal limits with potassium 4.3 magnesium 2.1. Plan to check TSH. The patient is lying in bed and mildly uncomfortable. He continues to have severe incapacitating low lumbar back pain minimally controlled with several pain medications. He reports that the combination of acetaminophen, methocarbamol and oxycodone this morning give him the most pain relief he has received thus far. He continues to have difficulty with movement and ambulation due to severe lumbar back pain. Plan to add gabapentin to modulate nerve pain. Patient denies saddle anesthesia, bowel or bladder incontinence and no signs of cauda equina syndrome. No radiculopathy. He denies headache, shortness of breath, cough, chest pain, abdominal pain, nausea, vomiting, fever, chills, dysuria. He continues to have mild abdominal distension and had moderate loose stool yesterday. Abdominal x-ray continues to demonstrate ileus. Continue tiffany ly suppositories and bowel regimen with Colace and MiraLax. Continue to monitor abdominal films. He is voiding but incontinent brief due to difficulty with ambulation. Continue physical and occupational therapy. Plan to place TSLO brace ordered by Orthopedic surgery. Exam Vital Signs (past 8 hours): - 01/14/20 08:16 01/14/20 09:14 01/14/20 10:00 Temperature 99.3 F Pulse Rate 89 89 Respiratory Rate 18 Blood Pressure 183/94 H 183/94 H Pulse Oximetry 93 94 01/14/20 11:47 01/14/20 14:00 Temperature 99.3 F Pulse Rate 88 Respiratory Rate 17 Blood Pressure 191/91 H Pulse Oximetry 94 94 Oxygen Delivery Method Room Air Oxygen Flow Rate 0 Narrative Exam Narrative: General: Older male lying in bed and in no acute distress, appears mildly uncomfortable, well-developed, well-nourished, appropriately interactive. HEENT: Normocephalic, atraumatic. External ears without defect. Pupils equal, round, and reactive to light. Anicteric sclerae, moist conjunctivae, and no lid lag. Oropharynx free of erythema and cobble stoning with moist mucosa. Neck: Supple with full range of motion. No jugular venous distension. No bruits. No lymphadenopathy or thyromegaly. Cardiovascular: Regular rate and rhythm without murmurs, rubs, or gallops appreciated. Pulmonary: Clear to auscultation bilaterally without crackles, wheezes, or rhonchi. Normal respiratory effort with no use of accessory muscles. Abdomen: Soft, bowel sounds present but hypoactive, nontender, mildly distended. No hepatosplenomegaly or masses appreciated. Back: Focal mild tenderness to palpation at L4-L5 level. Extremities: No clubbing, cyanosis, or edema. Generalized weakness of lower extremities +4 to 5 secondary to pain. Skin: Normal temperature, turgor, and texture; no rash, ulcers, or subcutaneous nodules appreciated. Neurological: Cranial nerves grossly intact. Psychiatric: Normal mood and affect. Alert and oriented to person, place, and time. Objective Labs Result Diagrams: 01/15/20 06:00 01/15/20 06:00 Labs: Laboratory Results - last 24 hr 01/14/20 01/14/20 01/14/20 06:40 06:40 06:40 WBC 11.2 H RBC 3.98 L Hgb 10.3 L Hct 31.0 L MCV 77.8 L MCH 25.8 L MCHC 33.1 RDW 21.3 H Plt Count 324 Neut % (Auto) 75.3 H Lymph % (Auto) 10.9 L [place] % (Auto) 11.8 Eos % (Auto) 0.8 L Baso % (Auto) 1.2 Neut # (Auto) 8500 H Lymph # (Auto) 1200 [place] # (Auto) 1300 H Eos # (Auto) 100 Baso # (Auto) 100 RBC Morphology See below Poikilocytosis 2+ H Anisocytosis 2+ H [place] Cells 1+ H Sodium 127 L Potassium 4.3 Chloride 97 L Carbon Dioxide 24 BUN 17 Creatinine 0.69 Estimated GFR > 60.0 BUN/Creatinine Ratio 24.6 H Glucose 96 Calcium 8.2 L Magnesium 2.1 Assessment & Plan Assessment & Plan narrative: Aman Chu is a 69-year-old male with a past medical history significant for CAD status post coronary artery bypass grafting, CVA with residual right leg numbness on anticoagulation with Xarelto, hypertension, hyperlipidemia, diabetes mellitus type 2, non-insulin using and diet-controlled, bladder cancer status post cystectomy with formation of neobladder (03/2019) who presented to the ED with fever, dark colored urine and persistent intractable lumbar back pain. 1. Acute Enterococcus UTI and bacteremia, present on admission. Resolving. -Patient reports no history of urinary colonization secondary to his neobladder. Patient presented with dark colored and foul-smelling urine with fevers. -Urine and blood culture in 4:4 bottles grew Enterococcus faecalis sensitive to ampicillin. Repeat blood cultures today to assure clearance of blood stream. -Initial WBC 14.2 and trending down now 11.2. Procalcitonin negative. Continue to monitor WBC daily. -Received ceftriaxone 1 g IV x1 in ED. Continued Zosyn 3.375 g every 8 hours pending urine and blood culture identification and sensitivities then switched to ampicillin 2 g IV every 4 hours. Patient will need a minimum of 3 days of IV antibiotics and 10 day total course of antibiotics. 2. Acute lumbar back pain, present on admission. Active. -Patient has been taking oxycodone and tramadol for back pain per [facility] [place] and was prescribed diazepam 5 mg every 6 hours as needed for back spasms on discharge. -no radiculopathy, saddle anesthesia, bowel or bladder incontinence, or signs of cauda equine syndrome. -MR lumbar spine demonstrated significant multilevel degenerative changes, multilevel severe foraminal narrowing with canal compression secondary to disc bulge with contributing affective facet/ligamentum flavum arthropathy, and multilevel foraminal narrowing most severe at L5-S1 with mild flattening of the exiting nerve roots bilaterally, right greater than left predominantly secondary to facet arthropathy with contributing effect of retrolisthesis. -Patient unable to take NSAIDs due to Xarelto therapy and also want to avoid glucocorticoids due to concurrent blood and urine infection. -Continue pain control with acetaminophen 650 mg every 6 hours, methocarbamol 750 mg 4 times daily as needed for muscle spasm, diazepam 5 mg every 6 hours as needed for breakthrough muscle spasm, lidocaine patch daily, oxycodone 10 mg every 4 hours as needed for moderate pain, hydromorphone 0.5-1 mg IV every 4 hours as needed for severe breakthrough pain. Plan to add gabapentin 300 mg 3 times daily for modulation of nerve pain. -Continue physical therapy and occupational therapy evaluation and treatment. -Consulted orthopedic surgery, Dr. Vizcarra, who recommended conservative management including: pain control, mobilization and trial of TSLO back brace as tolerated. Could consider ALEJANDRO and will consult physiatry, Dr. Camacho, for evaluation. 3. Acute abdominal pain with small-bowel and colon ileus, present on admission. Resolving. -Patient with history of multiple abdominal surgeries including cystectomy and prostatectomy for bladder cancer and creation of neobladder. -CT abdomen and pelvis with contrast demonstrated distended bowel adjacent to neobladder, as well as colonic dilation with fluid and air without obvious evidence of obstruction. -Patient presented with constipation x 6 days likely secondary to opiate use for acute back pain. -Consulted general surgery, Dr. Verdin, who recommended treatment of UTI, daily suppository to stimulate colonic function and bowel regimen, limit of PO intake, and IV fluid hydration. We appreciate his time and recommendations. 4. Hyponatremia, acuity unclear but possibly chronic, present on admission. Stable. -Unclear acuity of hyponatremia but patient had hyponatremia in the 120s at [facility]. -Initial sodium level 125. Sodium level trending up now 127. -Patient is asymptomatic and is alert and oriented without cognitive impairment. -Received 1 L of normal saline in ED. Continued IV fluids until adequately hydrated then discontinued. Continue to encourage PO fluid intake. 5. Hypertension, chronic, present on admission. Stable. -Patient with intermittent elevated blood pressure due to pain response and continue to optimize pain control as above. -Continue home carvedilol 12.5 mg twice daily, cilostazol 100 mg twice daily, diltiazem 120 mg daily, and valsartan 80 mg daily. Ordered hydralazine 10 mg IV every 6 hours as needed for SBP > 180 mmHg or diastolic > 100 mmHg. 6. CAD status post CABG, PVD status post stenting x9, and previous CVA on Xarelto, chronic, present on admission. Stable. -Patient denies complaints of chest pain, palpitations or shortness of breath. 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 -Continue home aspirin 81 mg daily, atorvastatin 40 mg daily at bedtime, carvedilol 12.5 mg twice daily, cilostazol 100 mg twice daily, diltiazem 120 mg daily, ezetimibe 10 mg daily, valsartan 80 mg daily and Xarelto 2.5 mg twice daily. Ordered hydralazine 10 mg IV every 6 hours as needed for SBP > 180 mmHg or diastolic > 100 mmHg. 7. Microcytic hypochromic anemia, chronic, present on admission. Stable.. -Previously diagnosed with iron deficiency anemia with improving course per records from [facility] [place]. -No evidence of blood loss anemia including hematemesis, hematochezia or melena. -Continue to monitor blood counts closely. Code status: Full code, patient designates his Susana to be surrogate decision maker. VTE prophylaxis: Selena Kimbrough Disposition: [facility] to [facility] facility [facility] several days once back pain better controlled and he is mobilizing, as well as, he read has received 3 days of IV antibiotics. Quality VTE Deep Vein Thrombosis/Pulmonary Embolism Present on Admission: No
[2020-01-14] MEDS: OXYCODONE IR 10 MG TABLET PO ×3 (14:52→22:32)
[2020-01-14] MEDS: BISACODYL 10 MG SUPP PR (14:52)
--- NOTE | 2020-01-14 16:02 | OT.IPNOTE ---
Pt refusing to get up at this time. Pt not wanting to try to put on the BOA Metcalfe brace on at this time. To attempt to see pt tomorrow.
--- NOTE | 2020-01-14 16:56 | PT.IPTN ---
Current Diagnoses Urinary tract infection, site not specified (01/12/20) Physical Therapy Treatment Note M2 PT-IP Current Condition Start: 01/13/20 11:39 Freq: NEEDED Status: Active Protocol: Document 01/13/20 10:49 AB (Rec: 01/13/20 12:00 AB [id number]) Physical Therapy Current Condition Current Condition Evaluation Date 01/13/20 Treatment Diagnosis UTI; difficulty in walking Onset Date 01/12/20 M3 PT-IP Subjective Start: 01/13/20 11:39 Freq: NEEDED Status: Active Protocol: Document 01/14/20 16:40 HH (Rec: 01/14/20 16:55 [id number]) Subjective Physical Therapy Visit Type Type Treatment Note Visit Start Time 13:50 Visit Stop Time 13:15 Total Visit Minutes 25 Notes Ortho consult from Dr. Vizcarra received I think he needs to be mobilized with physical therapy and to use a back brace. This PT verified with Dr. Vizcarra that pt is going to use [employer] back brace Number of MANAGER ACCESS Visits 0 Physical Therapy Visit Comments Patient Comments Im not going to move well cause it hurts a lot Therapy Pain Assessment Pain When Pain Assessed During Mobility Pain Present Pain Present Pain Reported Location low back Intensity 10 Scale Used Numeric (0 - 10) Pain Management Techniques Distraction,Modification of Treatment,Re-positioning, Timing of Activity with Medications M4 PT-IP Mobility and Gait Start: 01/13/20 11:39 Freq: NEEDED Status: Active Protocol: Document 01/14/20 16:40 HH (Rec: 01/14/20 16:55 [id number]) PT-Bed Mobility Assessment Rolling Type of Rolling Log Rolling Level of Assist Moderate Assistance,1 Person Assistance Supine to Sit Supine to Sit Moderate Assistance,Maximum Assistance,1 Person Assistance ,Bedrails PT-Transfer Assessment Sit to and From Stand Sit to and from Stand Moderate Assistance,Maximum Assistance,1 Person Assistance ,Use of Upper Extremities Equipment Transfer Assistive Device Bed Rail,Front Wheeled Walker Orthotic/Prosthetic Devices or Brace: Yes Transfer Ability Level of Assist Moderate Assistance,Maximum Assistance,1 Person Assistance ,Use of Upper Extremities Comments Mobility Comments Pt was in bed upon PT arrival . Agreed to do fitting for prescribed [employer] back brace. Dr. Vieira and spouse came in 2mins later and spent approx 10 mins for d/c planning and discussion with POC. After that, pt was instructed to sit at EOB and he had to use L bed rail to pull w mod A for log roll followed by SL to sit with mod / max A on his L shoulder. c/o increase back pain and he had to primarily WB through UEs while sitting. Pt then stood up with mod A x 1 with FWW by pulling mostly from FWW. Pt then stood in place for 2 mins for back brace fitting and he requested to lay down d/t significant pain. He completed a quick sit to SL transfer then log rolled back to center of the bed. Pt was quite agitated and impatient d/t his significant pain. Spent time educating pt on importance of maintaining mobility and light ex to prevent muscle atrophy and generalized weakness. Pt remained agitated and refused to mobilize again. Call light placed within reach. Gait Assessment Comments Gait Comments unable to assess Stair Climbing Assessment Comments Stair Climbing Comments unable to assess PT-Balance Assessment Sitting Balance and Reactions Static Sitting Balance Ability Good Dynamic Sitting Balance Ability Fair Standing Balance and Reactions Static Standing Balance Ability Poor Dynamic Standing Balance Ability Poor Device Used FWW M5 PT-IP Objective Assessments Start: 01/13/20 11:39 Freq: NEEDED Status: Active Protocol: Document 01/13/20 10:49 AB (Rec: 01/13/20 12:00 AB [id number]) Orientation Orientation/Cognition Level of Alertness Alert Orientation Name,Year,Place,Situation Language Function Ability No Deficits Noted Safety Awareness Decreased Safety Awareness Memory Description Short Term Impaired Gross Range of Motion Lower Extremity ROM Assessment Within Functional Limits Strength Lower Extremity Strength Assessment Bilaterally Impaired Comments Strength Comments RLE 3+/5 LLE 4-/5 Coordination Assessment Gross Coordination Gross Coordination WNL Sensation Assessment Sensation Gross Sensation WNL Muscle Tone Muscle Tone WNL Yes M6 PT-IP Treatment Start: 01/13/20 11:39 Freq: NEEDED Status: Active Protocol: Document 01/14/20 16:55 (Rec: 01/14/20 16:56 [id number]) Physical Therapy Treatment Education Brace Education [place],Patient, Caregiver Equipment Issued Equipment Type and Company [employer] back brace was given to patient. Fitting is made and educated nursing staff Carissa how to dariusz/doff for pt for any OOB mobility M7 PT-IP Assessment and Plan Start: 01/13/20 11:39 Freq: NEEDED Status: Active Protocol: Document 01/14/20 16:40 (Rec: 01/14/20 16:55 [id number]) PT Summary Assessment and Plan Potential Rehabilitation Potential Good Status of Condition at Evaluation Evolving Summary Impairments Pain,ROM,Strength,Balance, Cognition,Bed Mobility, Transfers,Gait,Activity Tolerance Progress Towards Goals Slow Progress due to Pain,Slow Progress due to Medical Issues,Slow Progress due to Activity Tolerance,Slow Progress - Other Assessment Summary order for [employer] back brace received. Did fitting for pt but pt refused to mobilize after and became agitated and impatient. Educated nursing staff Carissa to encourage use of back brace for OOB activity. Will coordinate pain medication timing with therapy tomorrow. Goals Bed Mobility Goal Independent Transfer Goal Independent,Front Wheeled Walker Gait Goal Independent,Front Wheel Walker Gait Distance 150 Other Goals up/down 4 step ladder using bilateral rails ambulation without AD 200 ft SBA Frequency of Treatment Frequency Of Treatment Once a Day Treatment Plan Physical Therapy Treatment Plan Bed Mobility Training,Transfer Training,Gait Training, Therapeutic Exercise,Balance Retraining,Post Op Education, Discharge Planning,Hot or Cold Pack,Neuromuscular Re-ed, Coordination Retraining,Manual Therapy Other Recommendations and Next Treatment ambulation, caregiver training Focus when appropriate Recommendations To Nursing Amount of Assist Needed 1 Person Assist Discharge Recommendations PT Discharge Recommendations SNF Rehab Equipment Needed for Home Before FWW if not safe without AD Discharge Transportation Needs at Discharge Private Vehicle,Wheelchair/ Cabulance
--- NOTE | 2020-01-14 19:03 | PC.NURSE ---
temp 2nd set of VS and temp remains 99.8. Re-educated pt on importance of I.S. use and it's relation to temp. pt agreeable to using device (left on bedside table).
[2020-01-14] MEDS: DOCUSATE 100 MG CAPSULE PO (20:44)
[2020-01-14] MEDS: ATORVASTATIN 20 MG TABLET 40 MG PO (20:44)
[2020-01-14] MEDS: diazePAM 5 MG TABLET PO (20:44)
[2020-01-14] MEDS: GABAPENTIN 300 MG CAPSULE PO (20:44)
[2020-01-14] MEDS: SODIUM CHLORIDE 0.9% FLUSH 10 ML IV (23:45)
[2020-01-15] VITALS (13 sets, daily range): BP systolic 141–162; BP diastolic 69–87; PULSE 68–75; RESP 15–18; TEMP 36.7–37.4; O2SAT 94–97
[2020-01-15] MEDS: AMPICILLIN 2,000 MG in SODIUM CHLORIDE 0.9% 100 ML 200 ML IV ×5 (04:22→20:43)
[2020-01-15] MEDS: SODIUM CHLORIDE 0.9% FLUSH 10 ML IV (05:06)
[2020-01-15] MEDS: ACETAMINOPHEN 325 MG TABLET 650 MG PO ×4 (05:34→18:16)
[2020-01-15] MEDS: OXYCODONE IR 10 MG TABLET PO ×4 (05:34→20:05)
[2020-01-15] MEDS: methocarbamoL 500 MG TABLET 750 MG PO ×2 (05:35→13:27)
[2020-01-15 06:49] LABS: Add Manual Diff / Slide Review SLIDE REVIEW; Basophils Absolute Auto 100 /uL (0-100); Basophils Percent Auto 0.9 % (0-2); Eosinophils Absolute Auto 300 /uL (0-450); Eosinophils Percent Auto 3.6 % (2-4); Hematocrit 32.6 % (41-53); Lymphocytes Absolute Auto 1600 /uL (1100-4500); Lymphocytes Percent Auto 18.7 % (25-40); Mean Corpuscular HGB Conc 33.7 % (30-36); Mean Corpuscular Hemoglobin 26.2 PG (26-34); Mean Corpuscular Volume 77.6 fL (80-100); Monocytes Absolute Auto 1200 /uL (0-900); Monocytes Percent Auto 14.4 % (3-14); Neutrophils Absolute Auto 5400 /uL (1500-7000); Neutrophils Percent Auto 62.4 % (50-75); Platelet Count 324 X10^3/uL (150-400); Red Cell Distribution Width 21.3 % (11.6-14.8); White Blood Cell Count 8.6 X10^3/uL (4.5-11.0)
[2020-01-15 06:54] LABS: BUN Creatinine Ratio 19.8 (6-22); Blood Urea Nitrogen 17 mg/dL (9-20); Calcium 8.6 mg/dL (8.4-10.2); Carbon Dioxide 32 mmol/L (22-32); Chloride 91 mmol/L (98-107); Estimated Glomerular Filt Rate > 60.0 mL/min (>60); Glucose 95 mg/dL (80-110); HEMOLYSIS < 15 (0-50); Magnesium 2.4 mg/dL (1.6-2.3); Potassium 4.4 mmol/L (3.4-5.1); Sodium 126 mmol/L (137-145)
[2020-01-15 07:15] LABS: Procalcitonin < 0.05 ng/mL (<0.5)
[2020-01-15 07:18] LABS: Anisocytosis 2+; Poikilocytosis 1+
--- NOTE | 2020-01-15 08:00 | DI.RAD.S_ITS ---
PROCEDURE: XR ACUTE ABDOMEN SERIES INDICATIONS: colonic ileus resolving? TECHNIQUE: One view chest and two views of the abdomen were acquired. COMPARISON: [facility], CR, XR ACUTE ABDOMEN SERIES, 01/14/2020, 7:43. FINDINGS: Surgical changes and devices: Sternotomy wires and CABG clips. Partially visualized bilateral lower extremity vascular stents. Chest: Lungs are clear. Heart size is normal. No pleural effusions. No pneumoperitoneum. Scattered air-fluid levels are again noted, and diffuse dilated bowel, unchanged since yesterday. No free air identified. Bones: No suspicious bony lesions. IMPRESSION: Grossly stable appearance since yesterday without definite improvement. Redemonstration of distended bowel loops and scattered air-fluid levels. Dictated by: Clay Barr M.D. on 01/15/2020 at 12:37 Approved by: Clay Barr M.D. on 01/15/2020 at 12:41
[2020-01-15] MEDS: GABAPENTIN 300 MG CAPSULE PO ×3 (09:25→20:42)
[2020-01-15] MEDS: BISACODYL 10 MG SUPP PR (09:25)
[2020-01-15] MEDS: ASPIRIN EC 81 MG TABLET PO (09:25)
[2020-01-15] MEDS: carvediloL 12.5 MG TABLET PO ×2 (09:26→16:12)
[2020-01-15] MEDS: VALSARTAN 80 MG TABLET PO (09:27)
[2020-01-15] MEDS: EZETIMIBE 10 MG TABLET PO (09:27)
[2020-01-15] MEDS: polyethylene glycoL 3350 17 GM POWD.PACK PO (09:27)
[2020-01-15] MEDS: LIDOCAINE PATCH 1 EACH ADH..PATCH TOP (09:27)
[2020-01-15] MEDS: RIVAROXABAN 10 MG TABLET 2.5 MG PO ×2 (09:27→20:41)
[2020-01-15] MEDS: dilTIAZem CD 120 MG CAP PO (09:27)
[2020-01-15] MEDS: cilostazoL 50 MG TABLET 100 MG PO ×2 (09:28→20:43)
[2020-01-15] MEDS: HYDROMORPHONE 1 MG INJ IV ×2 (10:29→16:13)
--- NOTE | 2020-01-15 11:29 | PT-IP ANOTE ---
checked with pt and pt refusing PT. Nurse came in and stated that his next pain medication will be at ~ 130 and to see pt at ~ 2pm. pt agreed. Will check on pt in the afternoon.
--- NOTE | 2020-01-15 14:00 | PT.IPTN ---
Current Diagnoses Urinary tract infection, site not specified (01/12/20) Physical Therapy Treatment Note M2 PT-IP Current Condition Start: 01/13/20 11:39 Freq: NEEDED Status: Active Protocol: Document 01/13/20 10:49 AB (Rec: 01/13/20 12:00 AB [email or web address]) Physical Therapy Current Condition Current Condition Evaluation Date 01/13/20 Treatment Diagnosis UTI; difficulty in walking Onset Date 01/12/20 M3 PT-IP Subjective Start: 01/13/20 11:39 Freq: NEEDED Status: Active Protocol: Document 01/15/20 14:00 AB (Rec: 01/15/20 15:02 AB [id number]) Subjective Physical Therapy Visit Type Type Treatment Note Visit Start Time 14:00 Visit Stop Time 14:25 Total Visit Minutes 25 Number of FABRIC COATING SUPERVISOR Visits 0 Physical Therapy Visit Comments Patient Comments pt is agreeable to do PT Therapy Pain Assessment Pain When Pain Assessed At Rest Pain Present Pain Present Pain Reported Location low back Intensity 7 Scale Used Numeric (0 - 10) Pain Behaviors Guarding Pain Management Techniques Distraction,Re-positioning, Timing of Activity with Medications M4 PT-IP Mobility and Gait Start: 01/13/20 11:39 Freq: NEEDED Status: Active Protocol: Document 01/15/20 14:00 AB (Rec: 01/15/20 15:02 AB [id number]) PT-Bed Mobility Assessment Rolling Type of Rolling Log Rolling Level of Assist Contact Guard Assistance Supine to Sit Supine to Sit Contact Guard Assistance, Bedrails PT-Transfer Assessment Sit to and From Stand Sit to and from Stand Minimal Assistance,1 Person Assistance,Use of Upper Extremities Equipment Transfer Assistive Device Front Wheeled Walker Orthotic/Prosthetic Devices or Brace: Yes Transfers Transfer Destination Chair Transfer Technique ambulated using FWW Transfer Ability Level of Assist Moderate Assistance,Maximum Assistance,1 Person Assistance ,Use of Upper Extremities Comments Mobility Comments pt completed log roll supine to sit CGA using bed rail. pt was able to sit on EOB SBA. assisted with putting on back brace. completed sit to stand min A but pt used BLE on FWW to get up. ambulated in room ~ 30 ft mod to max A. presents with unsteady gait , increase bilateral hip/knee flexion and trunk posterior lean. slight R knee buckling during ambulation. pt was able to maintin standing by the sink min A and cues for upright posture. pt sat on chair to rest before going to chair. completed sit to stand mod A and cues. pt ambulated to the chair using FWW mod to max A. positioned pt on chair. call light and table placed within reach. Gait Assessment Gait Gait Assistance Required: Moderate Assistance,Maximum Assistance,1 Person Assist Distance (Feet) 30 Able to Maintain Weight Bearing Status Yes During Gait Assistive Devices Assistive Device Gait Belt,Front Wheeled Walker Orthotic/Prosthetic Devices or Brace: No Gait Deviations General Gait Pattern Antalgic,Ataxic,Decreased Stride Length,Decreased Feet Clearance,Wide Based Gait Factors Limiting Gait Function Factors Limiting Gait Function Decreased Activity Tolerance, Decreased Strength,Limited Range of Motion,Pain,Poor Balance,Poor Safety Awareness Comments Gait Comments pls refer to mobility section for details M5 PT-IP Objective Assessments Start: 01/13/20 11:39 Freq: NEEDED Status: Active Protocol: Document 01/13/20 10:49 AB (Rec: 01/13/20 12:00 AB [id number]) Orientation Orientation/Cognition Level of Alertness Alert Orientation Name,Year,Place,Situation Language Function Ability No Deficits Noted Safety Awareness Decreased Safety Awareness Memory Description Short Term Impaired Gross Range of Motion Lower Extremity ROM Assessment Within Functional Limits Strength Lower Extremity Strength Assessment Bilaterally Impaired Comments Strength Comments RLE 3+/5 LLE 4-/5 Coordination Assessment Gross Coordination Gross Coordination WNL Sensation Assessment Sensation Gross Sensation WNL Muscle Tone Muscle Tone WNL Yes M6 PT-IP Treatment Start: 01/13/20 11:39 Freq: NEEDED Status: Active Protocol: Document 01/15/20 14:00 AB (Rec: 01/15/20 15:02 AB [id number]) Physical Therapy Treatment Education Education Provided Precautions,Safety M7 PT-IP Assessment and Plan Start: 01/13/20 11:39 Freq: NEEDED Status: Active Protocol: Document 01/15/20 14:00 AB (Rec: 01/15/20 15:02 AB [id number]) PT Summary Assessment and Plan Potential Rehabilitation Potential Fair Summary Impairments Pain,ROM,Strength,Balance, Coordination,Sensation,Tone, Cognition,Bed Mobility, Transfers,Gait,Activity Tolerance Progress Towards Goals Slow Progress due to Pain,Slow Progress due to Activity Tolerance Assessment Summary pt requiring mod to max A with mobility and unable to tolerate much activity. continues to c/o back pain that increases with mobility. Pt has back brace and stated that it helps some. will continue to assess progress but will need SNF rehab at this time. Talked to Dr. Bundy regarding parameters for back brace and stated that it is as tolerated especially when pt is out of bed but can be off in bed. Verbal order received from Dr. bundy for back brace parameters. Goals Bed Mobility Goal Independent Transfer Goal Independent,Front Wheeled Walker Gait Goal Independent,Front Wheel Walker Gait Distance 150 Other Goals up/down 4 step ladder using bilateral rails ambulation without AD 200 ft SBA Frequency of Treatment Frequency Of Treatment Once a Day Treatment Plan Physical Therapy Treatment Plan Bed Mobility Training,Transfer Training,Gait Training, Therapeutic Exercise,Balance Retraining,Post Op Education, Discharge Planning,Hot or Cold Pack,Neuromuscular Re-ed, Coordination Retraining,Manual Therapy Other Recommendations and Next Treatment ambulation, caregiver training Focus when appropriate Recommendations To Nursing Amount of Assist Needed 1 Person Assist Discharge Recommendations PT Discharge Recommendations SNF Rehab Transportation Needs at Discharge Private Vehicle,Wheelchair/ Cabulance
--- NOTE | 2020-01-15 14:39 | OT.IP.EVAL ---
Current Diagnoses Urinary tract infection, site not specified (01/12/20) Past Medical History (Last Reviewed 01/14/20 @ 08:08 by Clover Vizcarra MD) Bladder cancer (Acute) Coronary artery disease (Acute) History of CVA (cerebrovascular accident) (Acute) Hyperlipidemia (Acute) Hypertension (Acute) Peripheral vascular disease (Acute) Surgical History (Last Reviewed 01/14/20 @ 08:08 by Clover Vizcarra MD) H/O prostatectomy (Acute) History of total cystectomy (Acute) Hx of CABG (Acute) Occupational Therapy Inpatient Evaluation/Re-Eval M1 PT/OT-IP Prior Functional Status Start: 01/15/20 15:02 Freq: NEEDED Status: Active Protocol: Document 01/15/20 14:00 [facility] (Rec: 01/15/20 15:28 [facility] [id number]) Medical Review Prior Functional Status Medical History Reviewed Yes Communication able to make needs known Mobility and Gait pt stated that he is independent with all mobilities and ambulation without AD Activities of Daily Living and IADL's Per pr was completely independent with all needs. Social History Household Members spouse Number of Stairs To Enter/Railing? P lives on a boat: has 4 step ladder down to the boat with bilateral rails Home Environment High Toilet Additional Social History Comment pt takes his shower on a shower depot per pt pt stated that he has a bunk bed and gets in/out through the foot of the bed M2 OT-IP Current Condition Start: 01/15/20 15:02 Freq: Status: Active Protocol: Document 01/15/20 14:00 [facility] (Rec: 01/15/20 15:28 [facility] [id number]) Occupational Therapy Current Condition Current Condition Evaluation Date 01/15/20 Treatment Diagnosis UTI, back pain , and decreased mobility and self care Post Operative Precautions Lumbar Precautions Log Roll,No Twisting,Limit Bending,Lifting Restriction of 10 lbs,Gait Belt above Incisional Area Other Precautions To wear back brace when up out of bed and off in bed. M3 OT- IP Subjective and Pain Start: 01/15/20 15:02 Freq: Status: Active Protocol: Document 01/15/20 14:00 [facility] (Rec: 01/15/20 15:28 [facility] [id number]) OT- Subjective Occupational Therapy Visit Type Type Initial Evaluation Visit Start Time 14:00 Visit Stop Time 14:39 Total Visit Minutes 39 Occupational Therapy Visit Comments Patient Comments Pt agreed to get up, , PT also present during OT eval. Patient/Caregiver Goals To get better. OT Pain Assessment Pain When Pain Assessed During Mobility Pain Present Pain Present Pain Reported Location low back Intensity 7 Scale Used Numeric (0 - 10) M4 OT- IP ADL's Start: 01/15/20 15:02 Freq: Status: Active Protocol: Document 01/15/20 14:00 [facility] (Rec: 01/15/20 15:28 [facility] [id number]) OT [id number] Comments OT Self-Feeding Comments Not at meal time. OT ADL-Grooming General Evaluation Grooming Ability Standby Assistance Comments OT Grooming Comments Pt able to do all grooming needs but needing MODA for balance while standing with FWW. OT ADL-Oral Care General Eval Oral Care Ability Independent OT ADL-Dressing General Eval Upper Body Dressing Ability Maximum Assistance Lower Body Dressing Ability Maximum Assistance Areas Needing Assistance Socks Comments OT Dressing Comments Pt needing MAX A for brace management and MAX A for socks . Able to show pt LB dressing equipment and educated of how to use commercial painter and sock aid to increase ease with dressing needs. OT ADL-Toileting Comments OT Toileting Comments Pt not having to go. OT ADL-Bathing Comments OT Bathing Comments NOt at this time. M6 OT- IP Functional Cognition Start: 01/15/20 15:02 Freq: Status: Active Protocol: Document 01/15/20 14:00 [facility] (Rec: 01/15/20 15:28 [facility] [id number]) Cognitive Factors Limiting Selfcare Function Cognitive Ability Level of Alertness Alert Patient Orientation Name,Place,Situation Attention Span Ability Capable of Focused Attention, Capable of Sustained Attention Ability to Follow Commands Able to Follow Multi-Step Commands Cognitive Comments Cognitive Assessment Comments Pt able to follow multiple commands for ADl's and mobility needs. OT- Vision and Hearing OT- Hearing Assessment OT- Hearing Assessment WFL OT- Vision Assessment Visual Acuity Glasses For Reading M7 OT- IP Mobility and Balance Start: 01/15/20 15:02 Freq: Status: Active Protocol: Document 01/15/20 14:00 [facility] (Rec: 01/15/20 15:28 [facility] [email or web address]) OT- Bed Mobility Assessment Rolling Type of Rolling Roll to Left Level of Assistance Contact Guard Assistance Supine to Sit Supine to Sit Assist Contact Guard Assistance OT-Transfer Assessment Sit to and From Stand Sit to and from Stand Minimal Assistance Transfers Transfer Ability Moderate Assistance Technique Transfer Destination Bed,Bedside Commode,Chair Transfer Technique Stand Step Pivot Devices Transfer Assistive Devices Gait Belt,Front Wheeled Walker Comments Mobility Comments Pt after initial vc needing CGA for log rolling and assist to get up from side lying to sitting in addition to increased time. FRANCISCO JAVIER to stand with FWW. MODA for transfers as pt right leg tends to buckle and pt needing heavy use of hand son the FWW. OT- Balance Assessment Sitting Balance and Reactions Static Sitting Balance Ability Normal Dynamic Sitting Balance Ability Good Standing Balance and Reactions Static Standing Balance Ability Poor M8 OT- IP Objective Assessments Start: 01/15/20 15:02 Freq: Status: Active Protocol: Document 01/15/20 14:00 [facility] (Rec: 01/15/20 15:28 [facility] [email or web address]) OT Gross Range of Motion Upper Extremity Range of Motion Assessment Within Functional Limits OT-Muscle Tone Assessment Muscle Tone WNL Yes M9 OT- IP Assessment and Plan Start: 01/15/20 15:02 Freq: Status: Active Protocol: Document 01/15/20 14:00 [facility] (Rec: 01/15/20 15:28 [facility] [id number]) OT Summary Assessment and Plan Potential Rehabilitation Potential Good Analytic Complexity at Evaluation Low Summary OT Impairments Pain,Balance,Functional Mobility,Grooming,Dressing, Toileting,Bathing,Toilet Transfers,Shower Transfers, Activity Tolerance Progress Towards Goals Slow Progress due to Pain,Slow Progress due to Activity Tolerance Assessment Summary Pt low complexity and main barriers are steps on a ladder to get onto the his boat , decreased balance, and now needing one person assist for functional mobility and ADl's. Pt looking to go to skilled rehab when medically stable. Goals Grooming Goal Independent Dressing Goal Independent Toileting Goal Independent Bathing Goal Independent Toilet Transfer Goal Independent Shower Transfer Goal Independent Patient/Caregiver Education Goal Demonstrate Post-Op Precautions Days to Meet Goals 20 Frequency of Treatment Frequency Of Treatment Once a Day Treatment Plan OT Treatment Plan ADL Training,Functional Mobility,Patient/Family Education,Discharge Planning Other Treatment Recommendations and Next Shower if appropriate Treatment Focus Discharge Recommendations OT Discharge Recommendations SNF Rehab Home Equipment Needs defer to skilled rehab Transportation Needs at Discharge Wheelchair/Cabulance
--- NOTE | 2020-01-15 15:47 | P.PN_ITS ---
Subjective Subjective Date Patient Seen: 01/15/20 Interval history: Aman Chu is a 69-year-old male with a past medical history significant for CAD status post coronary artery bypass grafting, CVA with residual right leg numbness on anticoagulation with Xarelto, hypertension, hyperlipidemia, diabetes mellitus type 2, non-insulin using and diet-controlled, bladder cancer status post cystectomy with formation of neobladder (03/2019) who presented to the ED with fever, dark colored urine and persistent intractable lumbar back pain. The patient is lying in bed and appears comfortable. His most recent pain level was a +5/10. His pain seems to be better controlled with current pain medication regimen and addition of gabapentin. He was able to ambulate 30 ft today with physical therapy. Patient continues to deny saddle anesthesia, bowel or bladder incontinence and no signs of cauda equina syndrome. No radiculopathy. He denies headache, shortness of breath, cough, chest pain, nausea, vomiting, fever, chills, dysuria. He has mild left lower quadrant abdominal pain and his abdominal distension which appears mildly increased today. He has had a loose bowel movement daily the last 2 days after suppository. He has not had a bowel movement today but continues to pass flatus. Abdominal series x-ray continues to redemonstrate small-bowel and colonic distension without obvious signs of obstruction. Discussed case with general surgery, Dr. Murry, who continues to recommend bowel regimen and daily suppository and does not see any evidence of bowel obstruction. He is voiding without difficulty. Continue physical and occupational therapy. Exam Vital Signs (past 8 hours): - 01/15/20 09:00 01/15/20 09:26 01/15/20 10:00 Temperature 98.4 F Pulse Rate 68 68 Respiratory Rate 15 Blood Pressure 141/75 H 141/75 H Pulse Oximetry 95 95 01/15/20 11:25 01/15/20 14:00 01/15/20 15:45 Temperature 98.1 F 98.9 F Pulse Rate 74 70 Respiratory Rate 16 18 Blood Pressure 142/81 H 157/80 H Pulse Oximetry 95 95 96 Oxygen Delivery Method Room Air Oxygen Flow Rate 0 Narrative Exam Narrative: General: Older male lying in bed and in no acute distress, appears mildly uncomfortable, well-developed, well-nourished, appropriately interactive. HEENT: Normocephalic, atraumatic. External ears without defect. Pupils equal, round, and reactive to light. Anicteric sclerae, moist conjunctivae, and no lid lag. Oropharynx free of erythema and cobble stoning with moist mucosa. Neck: Supple with full range of motion. No jugular venous distension. No bruits. No lymphadenopathy or thyromegaly. Cardiovascular: Regular rate and rhythm without murmurs, rubs, or gallops appreciated. Pulmonary: Clear to auscultation bilaterally without crackles, wheezes, or rhonchi. Normal respiratory effort with no use of accessory muscles. Abdomen: Soft, hypoactive bowel sounds, mild tenderness to palpation in left lower quadrant, slightly increased moderate abdominal distension. Back: Focal mild tenderness to palpation at L4-L5 level. Extremities: No clubbing, cyanosis, or edema. Generalized weakness of lower extremities +4 to 5 secondary to pain. Skin: Normal temperature, turgor, and texture; no rash, ulcers, or subcutaneous nodules appreciated. Neurological: Cranial nerves grossly intact. Psychiatric: Normal mood and affect. Alert and oriented to person, place, and time. Objective Labs Result Diagrams: 01/16/20 09:20 01/16/20 09:20 Labs: Laboratory Results - last 24 hr 01/15/20 01/15/20 01/15/20 06:00 06:00 06:00 WBC 8.6 RBC 4.20 L Hgb 11.0 L Hct 32.6 L MCV 77.6 L MCH 26.2 MCHC 33.7 RDW 21.3 H Plt Count 324 Neut % (Auto) 62.4 Lymph % (Auto) 18.7 L [place] % (Auto) 14.4 H Eos % (Auto) 3.6 Baso % (Auto) 0.9 Neut # (Auto) 5400 Lymph # (Auto) 1600 [place] # (Auto) 1200 H Eos # (Auto) 300 Baso # (Auto) 100 RBC Morphology See below Poikilocytosis 1+ H Anisocytosis 2+ H Sodium 126 L Potassium 4.4 Chloride 91 L Carbon Dioxide 32 BUN 17 Creatinine 0.86 Estimated GFR > 60.0 BUN/Creatinine Ratio 19.8 Glucose 95 Hemoglobin A1c Calcium 8.6 Magnesium 2.4 H Procalcitonin < 0.05 01/15/20 06:00 WBC RBC Hgb Hct MCV MCH MCHC RDW Plt Count Neut % (Auto) Lymph % (Auto) [place] % (Auto) Eos % (Auto) Baso % (Auto) Neut # (Auto) Lymph # (Auto) [place] # (Auto) Eos # (Auto) Baso # (Auto) RBC Morphology Poikilocytosis Anisocytosis Sodium Potassium Chloride Carbon Dioxide BUN Creatinine Estimated GFR BUN/Creatinine Ratio Glucose Hemoglobin A1c 6.0 Calcium Magnesium Procalcitonin Assessment & Plan Assessment & Plan narrative: Aman Chu is a 69-year-old male with a past medical history significant for CAD status post coronary artery bypass grafting, CVA with residual right leg numbness on anticoagulation with Xarelto, hypertension, hyperlipidemia, diabetes mellitus type 2, non-insulin using and diet-controlled, bladder cancer status post cystectomy with formation of neobladder (03/2019) who presented to the ED with fever, dark colored urine and persistent intractable lumbar back pain. 1. Acute Enterococcus UTI and bacteremia, present on admission. Resolving. -Patient reports no history of urinary colonization secondary to his neobladder. Patient presented with dark colored and foul-smelling urine with fevers. -Urine and blood culture in 4:4 bottles grew Enterococcus faecalis sensitive to ampicillin. Repeat blood cultures today to assure clearance of blood stream. -Initial WBC 14.2 and trending down now 11.2. Procalcitonin negative. Continue to monitor WBC daily. -Received ceftriaxone 1 g IV x1 in ED. Continued Zosyn 3.375 g every 8 hours pending urine and blood culture identification and sensitivities then switched to ampicillin 2 g IV every 4 hours. Patient will need a minimum of 3 days of IV antibiotics and 10 day total course of antibiotics. 2. Acute lumbar back pain, present on admission. Active. -Patient has been taking oxycodone and tramadol for back pain per [facility] and was prescribed diazepam 5 mg every 6 hours as needed for back spasms on discharge. -no radiculopathy, saddle anesthesia, bowel or bladder incontinence, or signs of cauda equine syndrome. -MR lumbar spine demonstrated significant multilevel degenerative changes, multilevel severe foraminal narrowing with canal compression secondary to disc bulge with contributing affective facet/ligamentum flavum arthropathy, and multilevel foraminal narrowing most severe at L5-S1 with mild flattening of the exiting nerve roots bilaterally, right greater than left predominantly secondary to facet arthropathy with contributing effect of retrolisthesis. -Patient unable to take NSAIDs due to Xarelto therapy and also want to avoid glucocorticoids due to concurrent blood and urine infection. -Continue pain control with acetaminophen 650 mg every 6 hours, methocarbamol 750 mg 4 times daily as needed for muscle spasm, diazepam 5 mg every 6 hours as needed for breakthrough muscle spasm, lidocaine patch daily, oxycodone 10 mg every 4 hours as needed for moderate pain, hydromorphone 0.5-1 mg IV every 4 hours as needed for severe breakthrough pain. Plan to add gabapentin 300 mg 3 times daily for modulation of nerve pain. -Continue physical therapy and occupational therapy evaluation and treatment. -Consulted orthopedic surgery, Dr. Vizcarra, who recommended conservative management including: pain control, mobilization and trial of TSLO back brace as tolerated. Consulted physiatry, Dr. Camacho, for possible ALEJANDRO in the future and he plans to evaluate patient today. 3. Acute abdominal pain with small-bowel and colon ileus, present on admission. Active. -Patient with history of multiple abdominal surgeries including cystectomy and prostatectomy for bladder cancer and creation of neobladder. -CT abdomen and pelvis with contrast demonstrated distended bowel adjacent to neobladder, as well as colonic dilation with fluid and air without obvious evidence of obstruction. -Patient presented with constipation x 6 days likely secondary to opiate use for acute back pain. -Consulted general surgery, Dr. Verdin, who recommended treatment of UTI, daily suppository to stimulate colonic function and bowel regimen, limit of PO intake, and IV fluid hydration. We appreciate his time and recommendations. Discussed case again with general surgery, Dr. Murry, who does not see any signs of obvious bowel obstruction both clinically or on abdominal films and continues to reiterate bowel regimen, mobilization and treatment of UTI. 4. Hyponatremia, acuity unclear but possibly chronic, present on admission. Stable. -Unclear acuity of hyponatremia but patient had hyponatremia in the 120s at [facility]. -Initial sodium level 125. Sodium level stable at 126. -Patient is asymptomatic and is alert and oriented without cognitive impairment. -Received 1 L of normal saline in ED. Continued IV fluids until adequately hydrated then discontinued. Continue to encourage PO fluid intake. 5. Hypertension, chronic, present on admission. Stable. -Patient with intermittent elevated blood pressure due to pain response and continue to optimize pain control as above. -Continue home carvedilol 12.5 mg twice daily, cilostazol 100 mg twice daily, diltiazem 120 mg daily, and valsartan 80 mg daily. Ordered hydralazine 10 mg IV every 6 hours as needed for SBP > 180 mmHg or diastolic > 100 mmHg. 6. CAD status post CABG, PVD status post stenting x9, and previous CVA on Xarelto, chronic, present on admission. Stable. -Patient denies complaints of chest pain, palpitations or shortness of breath. 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 -Continue home aspirin 81 mg daily, atorvastatin 40 mg daily at bedtime, carvedilol 12.5 mg twice daily, cilostazol 100 mg twice daily, diltiazem 120 mg daily, ezetimibe 10 mg daily, valsartan 80 mg daily and Xarelto 2.5 mg twice daily. Ordered hydralazine 10 mg IV every 6 hours as needed for SBP > 180 mmHg or diastolic > 100 mmHg. 7. Microcytic hypochromic anemia, chronic, present on admission. Stable.. -Previously diagnosed with iron deficiency anemia with improving course per records from [facility]. -No evidence of blood loss anemia including hematemesis, hematochezia or melena. -Continue to monitor blood counts closely. Code status: Full code, patient designates his Susana to be surrogate decision maker. VTE prophylaxis: Lexisreljaimie, SCDs Disposition: Patient likely to discharge to [facility] facility in 1-2 days as he continues to mobilize and bowel function returns. Quality VTE Deep Vein Thrombosis/Pulmonary Embolism Present on Admission: No
--- NOTE | 2020-01-15 15:49 | PM.CN ---
History of Present Illness Consult details Date Patient Seen: 01/15/20 Time Patient Seen: 15:50 Chief complaint: fever / back pain Reason for consult: Acute Right Sided LBP Narrative: Mr. Chu is seen in consultation at the request of Dr. Vieira due to his intractable LBP that began approximately a week prior while boarding his 35ft sailboat that he resides on with his in the [facility]. He reports a longstanding hx of intermittent LBP without specific injury or illness. He describes right sided axial LBP that is exacerbated with extension and rotational biased maneuvers. He denies any LE pain or paresthesias with the above stated symptoms. He unfortunately was unable to take NSAIDS due to chronic anticoagulation. This is further complicated by underlying infection and bowel distention. Currently, admitted for work up of the infection that appears associated with the neobladder. There arises concern about possible bowel involvement as well as he reports minimal bowel movement for the week prior to admission with progressive distention. Otherwise he reports maintaining the social distancing with [employer] Meds Home Medications and Allergies Home Medications Medication Instructions Recorded Confirmed Type acetaminophen 650 mg PO Q4H PRN 01/12/20 01/12/20 History aspirin [Aspir-81] 81 mg PO DAILY 01/12/20 01/12/20 History atorvastatin 40 mg PO BEDTIME 01/12/20 01/12/20 History carvedilol 12.5 mg PO BID 01/12/20 01/12/20 History cilostazol 100 mg PO BID 01/12/20 01/12/20 History diazepam 5 mg PO Q6HR PRN 01/12/20 01/12/20 History diltiazem HCl 120 mg PO DAILY 01/12/20 01/12/20 History docusate calcium 240 mg PO BID 01/12/20 01/12/20 History ezetimibe 10 mg PO DAILY 01/12/20 01/12/20 History lidocaine [Lidoderm] 1 patch TOPICAL DAILY 01/12/20 01/12/20 History rivaroxaban [Xarelto] 2.5 mg PO BID 01/12/20 01/12/20 History valsartan 80 mg PO DAILY 01/12/20 01/12/20 History Allergies Allergy/AdvReac Type Severity Reaction Status Date / Time [id number] Reductase AdvReac Mild Rash Verified 01/12/20 16:28 Inhibitor Review of Systems Review of Systems Narrative: MSK: System reviewed and no additional complaints, except as documented. Neuro: System reviewed and no additional complaints, except as documented. Denies recent trauma, fever or weight loss of unknown origin, immunocompromise or immunosuppressive therapy, previous or current cancer diagnosis, history of intravenous drug use, sustained glucocorticoid use, osteoporosis, or a focal neurological deficit with progressive or disabling symptoms. Endorses Bladder Ca with neobladder, chronic intermittent LBP, cardiac arythmia with chronic anticoag, hx of CVA with Right LE residual, constipation. All other systems reviewed and are negative except as noted in HPI. Exam Vital Signs (past 8 hours): - 01/15/20 09:00 01/15/20 09:26 01/15/20 10:00 Temperature 98.4 F Pulse Rate 68 68 Respiratory Rate 15 Blood Pressure 141/75 H 141/75 H Pulse Oximetry 95 95 01/15/20 11:25 01/15/20 14:00 01/15/20 15:45 Temperature 98.1 F 98.9 F Pulse Rate 74 70 Respiratory Rate 16 18 Blood Pressure 142/81 H 157/80 H Pulse Oximetry 95 95 96 Oxygen Delivery Method Room Air Oxygen Flow Rate 0 General: The patient is in no obvious distress. Normal affect. Fully oriented. Skin: No significant skin lesions are noted. Gait: Stooped Gait Posture due to axial LBP Right Upper Extremity: Right upper extremity exam shows grossly normal alignment, range of motion, strength and stability with no swelling, atrophy or effusion. Left Upper Extremity: Left upper extremity exam shows grossly normal alignment, range of motion, strength and stability with no swelling, atrophy or effusion. Spine: Cervical spine ROM functional. Lumbar spine ROM was reduced in all planes. On palpation, there is tenderness over the spinous processes. With increased tenderness with axial loading and extension based maneuvers tenderness to palpation on paraspinals.straight leg raising negative bilaterally. Sacral provocative maneuvers including sacra shear test as well as pelvic obliquity are within normal limits. Right Lower Extremity: No edema, effusion or atrophy. tenderness over the greater trochanteric region Left Lower Extremity: No edema, joint effusion or atrophy. tenderness over the greater trochanteric region. Neurologic: Sensation is grossly intact to light touch throughout the upper and lower extremities. motor 5/5 all LE muscle groups. Coordination appears normal. DTR's symmetric. toes downgoing bilaterally Objective Labs Result Diagrams: 01/15/20 06:00 01/15/20 06:00 Labs: Laboratory Results - last 24 hr 01/15/20 01/15/20 01/15/20 06:00 06:00 06:00 WBC 8.6 RBC 4.20 L Hgb 11.0 L Hct 32.6 L MCV 77.6 L MCH 26.2 MCHC 33.7 RDW 21.3 H Plt Count 324 Neut % (Auto) 62.4 Lymph % (Auto) 18.7 L [place] % (Auto) 14.4 H Eos % (Auto) 3.6 Baso % (Auto) 0.9 Neut # (Auto) 5400 Lymph # (Auto) 1600 [place] # (Auto) 1200 H Eos # (Auto) 300 Baso # (Auto) 100 RBC Morphology See below Poikilocytosis 1+ H Anisocytosis 2+ H Sodium 126 L Potassium 4.4 Chloride 91 L Carbon Dioxide 32 BUN 17 Creatinine 0.86 Estimated GFR > 60.0 BUN/Creatinine Ratio 19.8 Glucose 95 Hemoglobin A1c Calcium 8.6 Magnesium 2.4 H Procalcitonin < 0.05 01/15/20 06:00 WBC RBC Hgb Hct MCV MCH MCHC RDW Plt Count Neut % (Auto) Lymph % (Auto) [place] % (Auto) Eos % (Auto) Baso % (Auto) Neut # (Auto) Lymph # (Auto) [place] # (Auto) Eos # (Auto) Baso # (Auto) RBC Morphology Poikilocytosis Anisocytosis Sodium Potassium Chloride Carbon Dioxide BUN Creatinine Estimated GFR BUN/Creatinine Ratio Glucose Hemoglobin A1c 6.0 Calcium Magnesium Procalcitonin PATIENT NAME: MELINDA CHU : 1950 EXAM DATE: 01/13/2020 15:[address] TONY HAJI M.D. CC: NO MCKEON M.D. MODALITY: MR PATIENT TYPE: In CONTRAST MEDIA: 10cc [email or web address] STATION ID: [id number] FLUORO TIME: L3-L4: Mild disc bulge with severe spinal stenosis and canal compression. Severe left and moderate to severe right foraminal narrowing with facet and ligamentum flavum hypertrophy. Mild epidural lipomatosis. L4-L5: Severe disc bulge with canal compression. Severe bilateral foraminal narrowing with facet and ligamentum flavum hypertrophy. L5-S1: Mild disc bulge with moderate spinal stenosis. Severe bilateral foraminal narrowing with nerve root flattening bilaterally, right greater than left. Facet hypertrophy is present. IMPRESSION: 1. Significant multilevel degenerative changes as above. 2. Multilevel severe foraminal narrowing with canal compression secondary to disc bulge with contributing affective facet/ligamentum flavum arthropathy as above. 3. Multilevel foraminal narrowing most severe at L5-S1 with mild flattening of the exiting nerve roots bilaterally, right greater than left predominantly secondary to facet arthropathy with contributing effect of retrolisthesis. Dictated by: Rima Lay M.D. on 01/13/2020 at 17:20 Approved by: Rima Lay M.D. on 01/13/2020 at 17:26 Assessment & Plan Assessment and plan (1) Facet arthropathy, lumbar: Status: Acute (2) Multilevel foraminal stenosis: Status: Acute (3) Urinary tract infection: Qualifiers: Hematuria presence: with hematuria Urinary tract infection type: acute cystitis Qualified Code(s): N30.01 - Acute cystitis with hematuria Status: Acute (4) Small bowel obstruction: Status: Acute (5) History of CVA (cerebrovascular accident): Problem details: Residual right lower extremity numbness Status: Acute (6) Hx of CABG: Status: Acute (7) Diabetes: Status: Acute Assessment & Plan narrative: After review of Mr. 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 Upon exam he does not currently exhibit any radiculopathy despite some radiographic evidence of longstanding neural root compression at the L5 level. He does have some bilateral EHL weakness that should be anticipated on gait trials with PT. This currently appears complicated by underlying infection and possible bowel impaction. These factors could easily contribute and refer to his lumbar spine. As treatment for the underlying infection and bowel impaction progress I would anticipate some resolution of his acute LBP. As the infection clears other treatment options will become more viable including the use of steroids as well as possible facet mediated interventional procedures. In the meantime, the use of mobilization techniques by PT, modalities and the possible trial with a CoxII inhibitor watching for possible durg interaction with his anticoagulation may be fruitful. I appreciate being involved in his care and will be happy to follow and assist as able. Time Spent With Patient Time with patient: 25 - 35 minutes
[2020-01-15 18:08] LABS: TSH w/ Reflex to FT4 8.64 uIU/mL (0.47-4.68)
[2020-01-15] MEDS: SODIUM CHLORIDE 0.9% 1,000 ML 100 ML IV (18:49)
[2020-01-15 18:53] LABS: Free T4, Direct Thyroxine 2.06 ng/dL (0.78-2.19)
[2020-01-15] MEDS: ATORVASTATIN 20 MG TABLET 40 MG PO (20:41)
[2020-01-16] VITALS (8 sets, daily range): BP systolic 142–165; BP diastolic 65–83; PULSE 72–84; RESP 16–19; TEMP 36.6–37.6; O2SAT 93–97
[2020-01-16] MEDS: ACETAMINOPHEN 325 MG TABLET 650 MG PO ×4 (00:33→18:45)
[2020-01-16] MEDS: AMPICILLIN 2,000 MG in SODIUM CHLORIDE 0.9% 100 ML 200 ML IV ×6 (00:35→20:34)
[2020-01-16] MEDS: diazePAM 5 MG TABLET PO ×2 (02:29→08:49)
[2020-01-16] MEDS: OXYCODONE IR 10 MG TABLET PO ×4 (02:29→22:56)
[2020-01-16] MEDS: carvediloL 12.5 MG TABLET PO ×2 (08:48→16:34)
[2020-01-16] MEDS: LIDOCAINE PATCH 1 EACH ADH..PATCH TOP (08:48)
[2020-01-16] MEDS: EZETIMIBE 10 MG TABLET PO (08:49)
[2020-01-16] MEDS: VALSARTAN 80 MG TABLET PO (08:49)
[2020-01-16] MEDS: dilTIAZem CD 120 MG CAP PO (08:49)
[2020-01-16] MEDS: GABAPENTIN 300 MG CAPSULE PO ×3 (08:49→20:37)
[2020-01-16] MEDS: cilostazoL 50 MG TABLET 100 MG PO ×2 (08:49→20:35)
[2020-01-16] MEDS: DOCUSATE 250 MG CAPSULE PO (08:49)
[2020-01-16] MEDS: polyethylene glycoL 3350 17 GM POWD.PACK PO (08:49)
[2020-01-16] MEDS: RIVAROXABAN 10 MG TABLET 2.5 MG PO ×2 (08:50→20:38)
[2020-01-16] MEDS: ASPIRIN EC 81 MG TABLET PO (08:50)
[2020-01-16 09:47] LABS: Add Manual Diff / Slide Review NO; Basophils Absolute Auto 100 /uL (0-100); Basophils Percent Auto 0.8 % (0-2); Eosinophils Absolute Auto 300 /uL (0-450); Eosinophils Percent Auto 3.3 % (2-4); Hematocrit 34.4 % (41-53); Hemoglobin 11.5 g/dL (13.5-17.5); Lymphocytes Absolute Auto 1300 /uL (1100-4500); Lymphocytes Percent Auto 14.2 % (25-40); Mean Corpuscular HGB Conc 33.4 % (30-36); Mean Corpuscular Hemoglobin 26.1 PG (26-34); Mean Corpuscular Volume 78.3 fL (80-100); Monocytes Absolute Auto 1100 /uL (0-900); Monocytes Percent Auto 11.9 % (3-14); Neutrophils Absolute Auto 6300 /uL (1500-7000); Neutrophils Percent Auto 69.8 % (50-75); Platelet Count 351 X10^3/uL (150-400); Red Blood Cell Count 4.39 X10^6/uL (4.5-5.9); Red Cell Distribution Width 20.1 % (11.6-14.8)
[2020-01-16 09:49] LABS: BUN Creatinine Ratio 21.9 (6-22); Blood Urea Nitrogen 16 mg/dL (9-20); Calcium 8.5 mg/dL (8.4-10.2); Carbon Dioxide 26 mmol/L (22-32); Chloride 94 mmol/L (98-107); Estimated Glomerular Filt Rate > 60.0 mL/min (>60); Glucose 93 mg/dL (80-110); HEMOLYSIS < 15 (0-50); Magnesium 2.4 mg/dL (1.6-2.3); Potassium 4.3 mmol/L (3.4-5.1); Sodium 128 mmol/L (137-145)
[2020-01-16 10:10] LABS: Procalcitonin < 0.05 ng/mL (<0.5)
[2020-01-16] MEDS: BISACODYL 10 MG SUPP PR (10:11)
[2020-01-16 10:19] LABS: Anisocytosis 2+; Poikilocytosis 1+
--- NOTE | 2020-01-16 10:30 | PT.IPTN ---
Current Diagnoses Type 2 diabetes mellitus without complications (01/12/20) Unspecified intestinal obstruction, unspecified as to partial versus complete obstruction (01/12/20) Spondylosis without myelopathy or radiculopathy, lumbar region (01/12/20) Spinal stenosis, site unspecified (01/12/20) Acute cystitis with hematuria (01/12/20) Urinary tract infection, site not specified (01/12/20) Personal history of transient ischemic attack (TIA), and cerebral infarction without residual deficits (01/12/20) Presence of aortocoronary bypass graft (01/12/20) Physical Therapy Treatment Note M2 PT-IP Current Condition Start: 01/13/20 11:39 Freq: NEEDED Status: Active Protocol: Document 01/13/20 10:49 AB (Rec: 01/13/20 12:00 AB [id number]) Physical Therapy Current Condition Current Condition Evaluation Date 01/13/20 Treatment Diagnosis UTI; difficulty in walking Onset Date 01/12/20 M3 PT-IP Subjective Start: 01/13/20 11:39 Freq: NEEDED Status: Active Protocol: Document 01/16/20 10:30 AB (Rec: 01/16/20 12:45 AB [id number]) Subjective Physical Therapy Visit Type Type Treatment Note Visit Start Time 10:30 Visit Stop Time 11:25 Total Visit Minutes 21 Notes pt seen for split visits: 1030 to 1041 and 1115 to 1125 Number of CREDIT UNDERWRITER Visits 0 Physical Therapy Visit Comments Patient Comments pt refusing to use back brace and safety belt Therapy Pain Assessment Pain When Pain Assessed At Rest Pain Present Pain Present Pain Reported Location low back Scale Used a lot per pt Pain Behaviors Guarding Pain Management Techniques Modification of Treatment,Re- positioning,Timing of Activity with Medications M4 PT-IP Mobility and Gait Start: 01/13/20 11:39 Freq: NEEDED Status: Active Protocol: Document 01/16/20 10:30 AB (Rec: 01/16/20 12:45 AB [email or web address]) PT-Bed Mobility Assessment Rolling Type of Rolling Log Rolling Level of Assist Standby Assistance Supine to Sit Supine to Sit Standby Assistance,Head of Bed Elevated,Bedrails PT-Transfer Assessment Sit to and From Stand Sit to and from Stand Standby Assistance,Contact Guard Assistance,1 Person Assistance,Use of Upper Extremities Equipment Transfer Assistive Device Gait Belt,Front Wheeled Walker Orthotic/Prosthetic Devices or Brace: No Transfers Transfer Destination Toilet Transfer Technique ambulated using FWW Transfer Ability Level of Assist Standby Assistance,Contact Guard Assistance,1 Person Assistance,Use of Upper Extremities Comments Mobility Comments pt completed supine to sit SBA using bed rail and HOB elevated ~ 15 deg. pt stated that he has to use the toilet first and does not want to have back brace on. also refused use of safety belt despite education on safety. pt completed sit to stand from EOB CGA but pt used BUE to push on FWW to stand. pt ambulated to the toilet CGA to min A. required assist with controlled descent to toilet. pt needed a few minutes to use the toilet. Left pt with NAC to assist. Checked on pt again and agreed to get up again to ambulate. completed supine to sit SBA with use of bed rail and HOB elevated. pt required increase time to complete task . continues to refuse use of back brace and safety belt. pt directs his own care. completed sit to stand CGA and stated that he needs to use the toilet again and ambulated using FWW CGA. Left pt on the toilet with call light placed next to pt. Gait Assessment Gait Gait Assistance Required: Contact Guard Assist,Minimum Assistance Distance (Feet) 10 Able to Maintain Weight Bearing Status Yes During Gait Assistive Devices Assistive Device Gait Belt,Front Wheeled Walker Orthotic/Prosthetic Devices or Brace: No Gait Deviations General Gait Pattern Decreased Stride Length, Decreased Feet Clearance,Step- to Gait Factors Limiting Gait Function Factors Limiting Gait Function Decreased Activity Tolerance, Decreased Sensation,Decreased Strength,Limited Range of Motion,Pain,Poor Balance,Poor Safety Awareness Comments Gait Comments pls refer to mobility section for details M5 PT-IP Objective Assessments Start: 01/13/20 11:39 Freq: NEEDED Status: Active Protocol: Document 01/13/20 10:49 AB (Rec: 01/13/20 12:00 AB [id number]) Orientation Orientation/Cognition Level of Alertness Alert Orientation Name,Year,Place,Situation Language Function Ability No Deficits Noted Safety Awareness Decreased Safety Awareness Memory Description Short Term Impaired Gross Range of Motion Lower Extremity ROM Assessment Within Functional Limits Strength Lower Extremity Strength Assessment Bilaterally Impaired Comments Strength Comments RLE 3+/5 LLE 4-/5 Coordination Assessment Gross Coordination Gross Coordination WNL Sensation Assessment Sensation Gross Sensation WNL Muscle Tone Muscle Tone WNL Yes M6 PT-IP Treatment Start: 01/13/20 11:39 Freq: NEEDED Status: Active Protocol: Document 01/16/20 10:30 AB (Rec: 01/16/20 12:45 AB [email or web address]) Physical Therapy Treatment Education Education Provided Safety M7 PT-IP Assessment and Plan Start: 01/13/20 11:39 Freq: NEEDED Status: Active Protocol: Document 01/16/20 10:30 AB (Rec: 01/16/20 12:45 AB [email or web address]) PT Summary Assessment and Plan Potential Rehabilitation Potential Fair Summary Impairments Pain,ROM,Strength,Balance, Sensation,Bed Mobility, Transfers,Gait,Activity Tolerance Progress Towards Goals Slow Progress due to Pain Assessment Summary pt is improving slowly with mobility but continues to c/o increase LBP affecting mobility tolerance. pt also directs his own care and refused to use back brace and safety belt. pt will need SNF rehab to improve strength and mobility independence before he can go home. Goals Bed Mobility Goal Independent Transfer Goal Independent,Front Wheeled Walker Gait Goal Independent,Front Wheel Walker Gait Distance 150 Other Goals up/down 4 step ladder using bilateral rails ambulation without AD 200 ft SBA Frequency of Treatment Frequency Of Treatment Once a Day Treatment Plan Physical Therapy Treatment Plan Bed Mobility Training,Transfer Training,Gait Training, Therapeutic Exercise,Balance Retraining,Post Op Education, Discharge Planning,Hot or Cold Pack,Neuromuscular Re-ed, Coordination Retraining,Manual Therapy Other Recommendations and Next Treatment ambulation, caregiver training Focus when appropriate Recommendations To Nursing Amount of Assist Needed 1 Person Assist Discharge Recommendations PT Discharge Recommendations SNF Rehab Transportation Needs at Discharge Private Vehicle,Wheelchair/ Cabulance
[2020-01-16] MEDS: HYDROMORPHONE 0.5 MG INJ IV (12:12)
--- NOTE | 2020-01-16 13:54 | PC.NURSE ---
Assess- Patient abdomen distended and bt are hyperactive. Patient is not eating well, he will take bites and drinks. Given a suppository earlier and had a medium and small stool. He is up with 1 PA and walker. Had a oxcodone earlier and not too helpful with discomfort and also given some valium. BP up to 190s systolic and at this time, patient complained of 7/10 pain. Given 0.5mg of iv dilaudid and helpful. Patient has a brace that he can wear on his back but he has not put it on this shift, asked to put on but he just wanted to sit up in his chair without it. BP systolic down to 140s. Patients is back and she is visiting now.
--- NOTE | 2020-01-16 14:39 | OT.IP.TRT ---
Current Diagnoses Type 2 diabetes mellitus without complications (01/12/20) Unspecified intestinal obstruction, unspecified as to partial versus complete obstruction (01/12/20) Spondylosis without myelopathy or radiculopathy, lumbar region (01/12/20) Spinal stenosis, site unspecified (01/12/20) Acute cystitis with hematuria (01/12/20) Urinary tract infection, site not specified (01/12/20) Personal history of transient ischemic attack (TIA), and cerebral infarction without residual deficits (01/12/20) Presence of aortocoronary bypass graft (01/12/20) Occupational Therapy Treatment Note M2 OT-IP Current Condition Start: 01/15/20 15:02 Freq: Status: Active Protocol: Document 01/15/20 14:00 [facility] (Rec: 01/15/20 15:28 [facility] [id number]) Occupational Therapy Current Condition Current Condition Evaluation Date 01/15/20 Treatment Diagnosis UTI, back pain , and decreased mobility and self care Post Operative Precautions Lumbar Precautions Log Roll,No Twisting,Limit Bending,Lifting Restriction of 10 lbs,Gait Belt above Incisional Area Other Precautions To wear back brace when up out of bed and off in bed. M3 OT- IP Subjective and Pain Start: 01/15/20 15:02 Freq: Status: Active Protocol: Document 01/16/20 15:18 [facility] (Rec: 01/16/20 15:37 [facility] [id number]) OT- Subjective Occupational Therapy Visit Type Type Treatment Note Visit Start Time 14:00 Visit Stop Time 14:39 Total Visit Minutes 39 Occupational Therapy Visit Comments Patient Comments Pt needing lots of encouragement from his and therapist to agree to shower. Patient/Caregiver Goals To get better. OT Pain Assessment Pain When Pain Assessed During Mobility Pain Present Pain Present Pain Reported Location low back Intensity 7 Scale Used Numeric (0 - 10) M4 OT- IP ADL's Start: 01/15/20 15:02 Freq: Status: Active Protocol: Document 01/16/20 15:18 [facility] (Rec: 01/16/20 15:37 [facility] [id number]) OT ADL-Dressing General Eval Upper Body Dressing Ability Moderate Assistance Lower Body Dressing Ability Maximum Assistance Areas Needing Assistance Socks Comments OT Dressing Comments Today pt able to assist more for back brace management needs. Pt still needing MAX A for LB dressing needs as unable to reach over to dariusz/ doff socks and brief over his feet. Pt needing to hold to the grab bars while assisting to pull up his clothing. OT ADL-Toileting Comments OT Toileting Comments Pt not having to go. OT ADL-Bathing General Evaluation Bathing Ability Maximal Assistance Areas Needing Assistance Wash/Dry Back,Wash/Dry Perineal Area,Wash/Dry Lower Extremities Comments OT Bathing Comments Pt initially not helping and needing cues from the therapist to wash his face and arms. Pt's able to assist pt for all other needs while sitting on the shower chair. Pt needing heavy use of grab bars to stand and CGA to FRANCISCO JAVIER for balance from the therapist. M6 OT- IP Functional Cognition Start: 01/15/20 15:02 Freq: Status: Active Protocol: Document 01/16/20 15:18 [facility] (Rec: 01/16/20 15:37 [facility] [id number]) Cognitive Factors Limiting Selfcare Function Cognitive Ability Level of Alertness Alert Patient Orientation Name,Place,Situation Attention Span Ability Capable of Focused Attention, Capable of Sustained Attention Ability to Follow Commands Able to Follow One Step Commands Cognitive Comments Cognitive Assessment Comments Pt has decreased initiation and need cues for safety. Pt's states ever since his CVA 4 years ago has trouble with problem solving needs such as fixing things mechanical and electrical. M7 OT- IP Mobility and Balance Start: 01/15/20 15:02 Freq: Status: Active Protocol: Document 01/16/20 15:18 [facility] (Rec: 01/16/20 15:37 [facility] [id number]) OT- Bed Mobility Assessment Rolling Type of Rolling Roll to Left Level of Assistance Contact Guard Assistance Supine to Sit Supine to Sit Assist Contact Guard Assistance Sit to Supine Sit to Supine Assist Minimal Assistance OT-Transfer Assessment Sit to and From Stand Sit to and from Stand Minimal Assistance Transfers Transfer Ability Minimal Assistance,Moderate Assistance Technique Transfer Destination Bed,Bedside Commode,Chair Transfer Technique Stand Step Pivot Devices Transfer Assistive Devices Gait Belt,Front Wheeled Walker Comments Mobility Comments Pt still having decreased balance as very unsteady on his feet and tends to lean into posterior tilt and has heavy use of arms on the FWW for balance in addition to therapist MODA to help step over the threshold of the shower. OT- Balance Assessment Sitting Balance and Reactions Static Sitting Balance Ability Normal Dynamic Sitting Balance Ability Good Standing Balance and Reactions Static Standing Balance Ability Poor M8 OT- IP Objective Assessments Start: 01/15/20 15:02 Freq: Status: Active Protocol: Document 01/15/20 14:00 [facility] (Rec: 01/15/20 15:28 [facility] [id number]) OT Gross Range of Motion Upper Extremity Range of Motion Assessment Within Functional Limits OT-Muscle Tone Assessment Muscle Tone WNL Yes M9 OT- IP Assessment and Plan Start: 01/15/20 15:02 Freq: Status: Active Protocol: Document 01/16/20 15:18 [facility] (Rec: 01/16/20 15:37 [facility] [id number]) OT Summary Assessment and Plan Potential Rehabilitation Potential Good Analytic Complexity at Evaluation Low Summary OT Impairments Pain,Balance,Functional Mobility,Grooming,Dressing, Toileting,Bathing,Toilet Transfers,Shower Transfers, Activity Tolerance Progress Towards Goals Slow Progress due to Pain,Slow Progress due to Activity Tolerance Assessment Summary Pt with encouragement able to take a shower today with assist from his and therapist. Pt will benefit from skilled rehab to continue to would on safety awareness, balance, and activity tolerance for ADl and functional mobility needs. Goals Grooming Goal Independent Dressing Goal Independent Toileting Goal Independent Bathing Goal Independent Toilet Transfer Goal Independent Shower Transfer Goal Independent Patient/Caregiver Education Goal Demonstrate Post-Op Precautions Days to Meet Goals 19 Frequency of Treatment Frequency Of Treatment Once a Day Treatment Plan OT Treatment Plan ADL Training,Functional Mobility,Patient/Family Education,Discharge Planning Other Treatment Recommendations and Next Pt to be able to dariusz/doff Treatment Focus back brace with FRANCISCO JAVIER. Discharge Recommendations OT Discharge Recommendations SNF Rehab Home Equipment Needs defer to skilled rehab Transportation Needs at Discharge Wheelchair/Cabulance
[2020-01-16] MEDS: INSULIN ASPART 100 UNIT/ML INSULN PEN SUBCUT (16:32)
[2020-01-16] MEDS: SODIUM CHLORIDE 0.9% FLUSH 10 ML IV (16:34)
--- NOTE | 2020-01-16 16:46 | PM.PN.1 ---
Subjective Subjective Date Patient Seen: 01/16/20 Interval history: Aman Chu is a 69-year-old male with a past medical history significant for CAD status post coronary artery bypass grafting, CVA with residual right leg numbness on anticoagulation with Xarelto, hypertension, hyperlipidemia, diabetes mellitus type 2, non-insulin using and diet-controlled, bladder cancer status post cystectomy with formation of neobladder (03/2019) who presented to the ED with fever, dark colored urine and persistent intractable lumbar back pain. The patient is lying in bed somnolent but arousable and appears comfortable. However, he continues to report severe low lumbar back pain although he is actively falling asleep during our interview. He reports his pain is a +5/10 but then when pointed out that he is falling asleep he states that ?maybe it is lower than that.? Patient received 2 doses of 5 mg of diazepam over last 12 hours which he has not received since admission and is likely contributing to his somnolence. Discontinue diazepam. His spouse is present at bedside who reports he just took a shower. He reports his pain when up ambulating and in shower was a +7/10. His pain seems to be well controlled with current pain medication regimen. He was able to ambulate 30 ft yesterday with physical therapy and plan to have nursing staff walk him in room and possibly hallway as he is contact guard assist. Patient continues to deny saddle anesthesia, bowel or bladder incontinence and no signs of cauda equina syndrome. No radiculopathy. He denies headache, shortness of breath, cough, chest pain, nausea, vomiting, fever, chills, or dysuria. He continues to have mild left lower quadrant abdominal pain with palpation and and abdominal distension which appears unchanged today. He again had another loose bowel movement with suppository and is passing flatus. He is voiding without difficulty. Continue physical and occupational therapy. Exam Vital Signs (past 8 hours): - 01/16/20 13:15 01/16/20 16:40 Temperature 98.7 F 98.4 F Pulse Rate 79 72 Respiratory Rate 16 19 Blood Pressure 145/70 H 149/65 H Pulse Oximetry 97 94 Oxygen Delivery Method Room Air Oxygen Flow Rate 0 Narrative Exam Narrative: General: Older male lying in bed and in no acute distress, somnolent but arousable, well-developed, well-nourished, appropriately interactive. HEENT: Normocephalic, atraumatic. External ears without defect. Pupils equal, round, and reactive to light. Anicteric sclerae, moist conjunctivae, and no lid lag. Oropharynx free of erythema and cobble stoning with moist mucosa. Neck: Supple with full range of motion. No lymphadenopathy or thyromegaly. Cardiovascular: Regular rate and rhythm without murmurs, rubs, or gallops appreciated. Pulmonary: Clear to auscultation bilaterally without crackles, wheezes, or rhonchi. Normal respiratory effort with no use of accessory muscles. Abdomen: Soft, bowel sounds present, mild tenderness to palpation in left lower quadrant, moderate abdominal distension. Back: Focal mild tenderness to palpation at L4-L5 level especially paraspinal musculature. Extremities: No clubbing, cyanosis, or edema. No radicular signs. Skin: Normal temperature, turgor, and texture; no rash, ulcers, or subcutaneous nodules appreciated. Neurological: Cranial nerves grossly intact. No saddle anesthesia, loss of bowel or bladder function or signs of cauda equine syndrome. Psychiatric: Somnolent but arousable. Normal mood and affect. Alert and oriented to person, place, and time. Objective Labs Result Diagrams: 01/16/20 09:20 01/16/20 09:20 Labs: Laboratory Results - last 24 hr 01/15/20 01/16/20 01/16/20 06:00 09:20 09:20 WBC 9.0 RBC 4.39 L Hgb 11.5 L Hct 34.4 L MCV 78.3 L MCH 26.1 MCHC 33.4 RDW 20.1 H Plt Count 351 Neut % (Auto) 69.8 Lymph % (Auto) 14.2 L [place] % (Auto) 11.9 Eos % (Auto) 3.3 Baso % (Auto) 0.8 Neut # (Auto) 6300 Lymph # (Auto) 1300 [place] # (Auto) 1100 H Eos # (Auto) 300 Baso # (Auto) 100 RBC Morphology See below Poikilocytosis 1+ H Anisocytosis 2+ H Sodium Potassium Chloride Carbon Dioxide BUN Creatinine Estimated GFR BUN/Creatinine Ratio Glucose Calcium Magnesium Procalcitonin < 0.05 TSH 8.64 H Free T4 2.06 01/16/20 09:20 WBC RBC Hgb Hct MCV MCH MCHC RDW Plt Count Neut % (Auto) Lymph % (Auto) [place] % (Auto) Eos % (Auto) Baso % (Auto) Neut # (Auto) Lymph # (Auto) [place] # (Auto) Eos # (Auto) Baso # (Auto) RBC Morphology Poikilocytosis Anisocytosis Sodium 128 L Potassium 4.3 Chloride 94 L Carbon Dioxide 26 BUN 16 Creatinine 0.73 Estimated GFR > 60.0 BUN/Creatinine Ratio 21.9 Glucose 93 Calcium 8.5 Magnesium 2.4 H Procalcitonin TSH Free T4 Assessment & Plan Assessment & Plan narrative: Aman Chu is a 69-year-old male with a past medical history significant for CAD status post coronary artery bypass grafting, CVA with residual right leg numbness on anticoagulation with Xarelto, hypertension, hyperlipidemia, diabetes mellitus type 2, non-insulin using and diet-controlled, bladder cancer status post cystectomy with formation of neobladder (03/2019) who presented to the ED with fever, dark colored urine and persistent intractable lumbar back pain. 1. Acute Enterococcus UTI and bacteremia, present on admission. Resolving. -Patient reports no history of urinary colonization secondary to his neobladder. Patient presented with dark colored and foul-smelling urine with fevers. -Urine and blood culture in 4:4 bottles grew Enterococcus faecalis sensitive to ampicillin. Repeat blood cultures today to assure clearance of blood stream. -Initial WBC 14.2 and trending down now 11.2. Procalcitonin negative. Continue to monitor WBC daily. -Received ceftriaxone 1 g IV x1 in ED. Continued Zosyn 3.375 g every 8 hours pending urine and blood culture identification and sensitivities then switched to ampicillin 2 g IV every 4 hours. Patient will need a minimum of 3 days of IV antibiotics and 10 day total course of antibiotics. 2. Acute lumbar back pain, present on admission. Improving. -Patient has been taking oxycodone and tramadol for back pain per [facility] and was prescribed diazepam 5 mg every 6 hours as needed for back spasms on discharge. -No radiculopathy, saddle anesthesia, bowel or bladder incontinence, or signs of cauda equine syndrome. -MR lumbar spine demonstrated significant multilevel degenerative changes, multilevel severe foraminal narrowing with canal compression secondary to disc bulge with contributing affective facet/ligamentum flavum arthropathy, and multilevel foraminal narrowing most severe at L5-S1 with mild flattening of the exiting nerve roots bilaterally, right greater than left predominantly secondary to facet arthropathy with contributing effect of retrolisthesis. -Patient unable to take NSAIDs due to Xarelto therapy and also want to avoid glucocorticoids due to concurrent blood and urine infection. -Continue pain control with acetaminophen 650 mg every 6 hours, methocarbamol 750 mg 4 times daily as needed for muscle spasm, lidocaine patch daily, oxycodone 5-10 mg every 4 hours as needed for moderate pain and gabapentin 300 mg 3 times daily for neuropathy. Discontinued IV narcotic and diazepam to avoid over sedation. -Continue physical therapy and occupational therapy evaluation and treatment. -Consulted orthopedic surgery, Dr. Vizcarra, who recommended conservative management including: pain control, mobilization and trial of TSLO back brace as tolerated. Consulted physiatry, Dr. Camacho, for possible ALEJANDRO which may be possibility in the future once infection has been completely treated and resolved. 3. Acute abdominal pain with small-bowel and colon ileus, present on admission. Resolving. -Patient with history of multiple abdominal surgeries including cystectomy and prostatectomy for bladder cancer and creation of neobladder. Patient presented with constipation x 6 days likely secondary to opiate use for acute back pain. -CT abdomen and pelvis with contrast demonstrated distended bowel adjacent to neobladder, as well as colonic dilation with fluid and air without obvious evidence of obstruction. -Consulted general surgery, Dr. Verdin, who recommended treatment of UTI, daily suppository to stimulate colonic function with bowel regimen, limit of PO intake, and IV fluid hydration. We appreciate his time and recommendations. Discussed case again with general surgery, Dr. Murry, on 01/14 who does not see any signs of obvious bowel obstruction both clinically or on abdominal films and continues to recommend bowel regimen, mobilization and treatment of UTI. -Patient continues to have bowel movement with suppository use. Continue bowel regimen and daily suppository. 4. Hyponatremia, acuity unclear but possibly chronic, present on admission. Stable. -Unclear acuity of hyponatremia but patient had hyponatremia in the 120s at [facility]. -Initial sodium level 125. Sodium level stable at 128. -Patient is asymptomatic and is alert and oriented without cognitive impairment. -Received 1 L of normal saline in ED. Restarted IV fluids with normal saline at 100 mL/hr for concern that the patient is not taking in a significant amount of PO intake which is contributing constipation and ileus. 5. Hypertension, chronic, present on admission. Stable. -Patient with intermittent elevated blood pressure due to pain response and continue to optimize pain control as above. -Continue home carvedilol 12.5 mg twice daily, cilostazol 100 mg twice daily, diltiazem 120 mg daily, and valsartan 80 mg daily. Ordered hydralazine 10 mg IV every 6 hours as needed for SBP > 180 mmHg or diastolic > 100 mmHg. 6. CAD status post CABG, PVD status post stenting x9, and previous CVA on Xarelto, chronic, present on admission. Stable. -Patient denies complaints of chest pain, palpitations or shortness of breath. -CT chest at 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 -Continue home aspirin 81 mg daily, atorvastatin 40 mg daily at bedtime, carvedilol 12.5 mg twice daily, cilostazol 100 mg twice daily, diltiazem 120 mg daily, ezetimibe 10 mg daily, valsartan 80 mg daily and Xarelto 2.5 mg twice daily. Ordered hydralazine 10 mg IV every 6 hours as needed for SBP > 180 mmHg or diastolic > 100 mmHg. 7. Microcytic hypochromic anemia, chronic, present on admission. Stable.. -Previously diagnosed with iron deficiency anemia with improving course per records from [facility]. -No evidence of blood loss anemia including hematemesis, hematochezia or melena. -Continue to monitor blood counts closely. Code status: Full code, patient designates his Susana to be surrogate decision maker. VTE prophylaxis: Lexisreljaimie SCDs Disposition: Patient likely to discharge to custodial facility tomorrow if he continues to mobilize well and ileus has resolved. Quality VTE Deep Vein Thrombosis/Pulmonary Embolism Present on Admission: No
--- NOTE | 2020-01-16 16:59 | PC.NURSE ---
Telemetry removed at approx 1500 per MD VVO to Day shift RN. No order placed to d/c tele. Upon clarification with MD, requests Tele to be kept on. Tele placed and on and Monitoring resumed by EDGER FEEDER.
[2020-01-16] MEDS: OXYCODONE IR 5 MG TABLET PO (18:45)
[2020-01-16] MEDS: SODIUM CHLORIDE 0.9% 1,000 ML 100 ML IV (18:45)
[2020-01-16] MEDS: ATORVASTATIN 20 MG TABLET 40 MG PO (20:35)
[2020-01-17] MEDS: ACETAMINOPHEN 325 MG TABLET 650 MG PO ×3 (00:22→12:50)
[2020-01-17] MEDS: AMPICILLIN 2,000 MG in SODIUM CHLORIDE 0.9% 100 ML 200 ML IV ×4 (00:24→12:51)
[2020-01-17 00:25] VITALS: BP 157/83; PULSE 86; RESP 16; TEMP 37.8; O2SAT 93
[2020-01-17 00:30] VITALS: O2SAT 93
[2020-01-17 05:27] VITALS: BP 152/73; PULSE 78; RESP 16; TEMP 36.7; O2SAT 96
[2020-01-17 05:54] LABS: BUN Creatinine Ratio 19.1 (6-22); Blood Urea Nitrogen 13 mg/dL (9-20); Carbon Dioxide 28 mmol/L (22-32); Chloride 95 mmol/L (98-107); Estimated Glomerular Filt Rate > 60.0 mL/min (>60); Glucose 109 mg/dL (80-110); HEMOLYSIS < 15 (0-50); Potassium 3.9 mmol/L (3.4-5.1); Sodium 127 mmol/L (137-145)
[2020-01-17 06:13] VITALS: O2SAT 96
[2020-01-17] MEDS: SODIUM CHLORIDE 0.9% 1,000 ML 100 ML IV (06:21)
[2020-01-17 07:39] VITALS: BP 155/79; PULSE 76; RESP 14; TEMP 36.5; O2SAT 94
--- NOTE | 2020-01-17 08:02 | PC.NURSE ---
Addendum entered by Lavinia Cordova R.N. 01/17/20 12:14: Patient has been discharged from the hospital and will be going to a snf for rehab. Original Note: Patients abdomen is less distended then yesterday. Bowel Tones are normal today. He states that he had a loose bowel movement earlier. He is moving more and getting up to the bathroom. He wanted to use the bsc earlier but RN made him get up to the bathroom and he was agreeable. Moving better, will assess more when patient gets up to the ambulate.
[2020-01-17] MEDS: polyethylene glycoL 3350 17 GM POWD.PACK PO (09:03)
[2020-01-17] MEDS: carvediloL 12.5 MG TABLET PO (09:03)
[2020-01-17] MEDS: GABAPENTIN 300 MG CAPSULE PO (09:03)
[2020-01-17] MEDS: LIDOCAINE PATCH 1 EACH ADH..PATCH TOP (09:03)
[2020-01-17] MEDS: BISACODYL 10 MG SUPP PR (09:04)
[2020-01-17] MEDS: dilTIAZem CD 120 MG CAP PO (09:04)
[2020-01-17] MEDS: ASPIRIN EC 81 MG TABLET PO (09:04)
[2020-01-17] MEDS: VALSARTAN 80 MG TABLET PO (09:04)
[2020-01-17] MEDS: cilostazoL 50 MG TABLET 100 MG PO (09:04)
[2020-01-17] MEDS: EZETIMIBE 10 MG TABLET PO (09:04)
[2020-01-17] MEDS: RIVAROXABAN 10 MG TABLET 2.5 MG PO (09:04)
[2020-01-17] MEDS: OXYCODONE IR 10 MG TABLET PO ×2 (09:04→12:50)
[2020-01-17] MEDS: DOCUSATE 250 MG CAPSULE PO (09:04)
--- NOTE | 2020-01-17 09:39 | DI.RAD.S_ITS ---
PROCEDURE: XR ACUTE ABDOMEN SERIES INDICATIONS: Resolution of ileus TECHNIQUE: One view chest and two views of the abdomen were acquired. COMPARISON: [facility], CT, CT ABDOMEN PELVIS W CON, 01/12/2020, 20:02. [facility], CR, XR ACUTE ABDOMEN SERIES, 01/13/2020, 7:55. [facility], CR, XR ACUTE ABDOMEN SERIES, 01/14/2020, 7:43. [facility], CR, XR ACUTE ABDOMEN SERIES, 01/15/2020, 8:54. FINDINGS: Surgical changes and devices: Post CABG changes are seen. Bilateral common iliac artery stents are seen. There is a right external iliac artery stent also seen. There is a biopsy clip seen involving the right mid abdomen. Chest: Lungs are clear. Heart size is normal. No pleural effusions. No pneumoperitoneum. Abdomen: There is prominent gaseous distention seen of the colon, with the ascending colon measuring 10.5 cm. Air-fluid levels can be seen within the colon. Mild prominence of small bowel loops can also be seen. Bones: No suspicious bony lesions. Age-appropriate bony degenerative changes are seen. IMPRESSION: Extensive gaseous distention of the colon is seen, which is similar to 01/15/2020. Mild prominence of small bowel is also seen. The appearance is consistent with the given clinical history of ileus. Postoperative and degenerative changes are seen. Dictated by: Tab Raphael M.D. on 01/17/2020 at 9:32 Approved by: Tab Raphael M.D. on 01/17/2020 at 9:35
--- NOTE | 2020-01-17 10:28 | OT.IP.TRT ---
Current Diagnoses Type 2 diabetes mellitus without complications (01/12/20) Unspecified intestinal obstruction, unspecified as to partial versus complete obstruction (01/12/20) Spondylosis without myelopathy or radiculopathy, lumbar region (01/12/20) Spinal stenosis, site unspecified (01/12/20) Acute cystitis with hematuria (01/12/20) Urinary tract infection, site not specified (01/12/20) Personal history of transient ischemic attack (TIA), and cerebral infarction without residual deficits (01/12/20) Presence of aortocoronary bypass graft (01/12/20) Occupational Therapy Treatment Note M2 OT-IP Current Condition Start: 01/15/20 15:02 Freq: Status: Active Protocol: Document 01/15/20 14:00 [facility] (Rec: 01/15/20 15:28 [facility] [id number]) Occupational Therapy Current Condition Current Condition Evaluation Date 01/15/20 Treatment Diagnosis UTI, back pain , and decreased mobility and self care Post Operative Precautions Lumbar Precautions Log Roll,No Twisting,Limit Bending,Lifting Restriction of 10 lbs,Gait Belt above Incisional Area Other Precautions To wear back brace when up out of bed and off in bed. M3 OT- IP Subjective and Pain Start: 01/15/20 15:02 Freq: Status: Active Protocol: Document 01/17/20 09:01 [facility] (Rec: 01/17/20 11:56 [facility] [id number]) OT- Subjective Occupational Therapy Visit Type Type Treatment Note Visit Start Time 09:01 Visit Stop Time 10:08 Total Visit Minutes 44 Notes Pt seen for split treatment form [id number] and [id number]. Occupational Therapy Visit Comments Patient Comments Pt initially not wanting to get up. Pt's present for the first half of the session. Patient/Caregiver Goals To go to rehab to get better and be able to get back to his boat. OT Pain Assessment Pain When Pain Assessed During Mobility Pain Present Pain Present Pain Reported Location low back Intensity 8 Scale Used Numeric (0 - 10) M4 OT- IP ADL's Start: 01/15/20 15:02 Freq: Status: Active Protocol: Document 01/17/20 09:01 [facility] (Rec: 01/17/20 11:56 [facility] [id number]) OT GBI-[id number]-[id number] General Evaluation Self-Feeding Ability Independent Comments OT Self-Feeding Comments Educated pt to sit upright while in bed while eating. OT ADL-Oral Care Comments Oral Care Comments NOt at this time. OT ADL-Dressing General Eval Upper Body Dressing Ability Minimal Assistance Lower Body Dressing Ability Maximum Assistance Areas Needing Assistance Underpants/Brief Comments OT Dressing Comments OT able to modify the back brace by put stitches to hold the velcro straps in place.Yesterday pt getting frustrated that the straps would come off while trying to dariusz/doff the brace . In addition white tape was place on the right side to help cue pt that the right side goes on top on the left. Pt now needing FRANCISCO JAVIER for back brace management. Mainly assist to get the brace around him ,lined up, and pt able to do the rest. Pt MAX A to dariusz the brief as pt having heavy use of his arms on the FWW for balance. OT ADL-Toileting Comments OT Toileting Comments Pt not having to go. M6 OT- IP Functional Cognition Start: 01/15/20 15:02 Freq: Status: Active Protocol: Document 01/17/20 09:01 [facility] (Rec: 01/17/20 11:56 [facility] [id number]) Cognitive Factors Limiting Selfcare Function Cognitive Ability Level of Alertness Alert Patient Orientation Name,Place,Situation Attention Span Ability Capable of Focused Attention, Capable of Sustained Attention Ability to Follow Commands Able to Follow One Step Commands Memory Description Short Term Impaired Safety Awareness Decreased Ability to Apply Precautions,Underestimates Need for Assistance Cognitive Comments Cognitive Assessment Comments Pt not remember what his told him this morning after 30 minutes passed. Pt needing cues to follow back precautions for log rolling. Pt needing cues to initiate tasks. M7 OT- IP Mobility and Balance Start: 01/15/20 15:02 Freq: Status: Active Protocol: Document 01/17/20 09:01 [facility] (Rec: 01/17/20 11:56 [facility] [id number]) OT- Bed Mobility Assessment Sit to Supine Sit to Supine Assist Minimal Assistance OT-Transfer Assessment Sit to and From Stand Sit to and from Stand Minimal Assistance,Moderate Assistance Transfers Transfer Ability Minimal Assistance,Moderate Assistance Technique Transfer Destination Bed,Wheelchair Transfer Technique Stand Step Pivot Devices Transfer Assistive Devices Gait Belt,Front Wheeled Walker Comments Mobility Comments Pt still unstady on his feet and needing from FRANCISCO JAVIER to MODA to stand to FWW. Pt needing assist for his balance and to help guide the FWW. Pt needing heavy use of arms on the FWW. OT- Balance Assessment Sitting Balance and Reactions Static Sitting Balance Ability Normal Dynamic Sitting Balance Ability Good Standing Balance and Reactions Static Standing Balance Ability Poor M8 OT- IP Objective Assessments Start: 01/15/20 15:02 Freq: Status: Active Protocol: Document 01/15/20 14:00 [facility] (Rec: 01/15/20 15:28 [facility] [id number]) OT Gross Range of Motion Upper Extremity Range of Motion Assessment Within Functional Limits OT-Muscle Tone Assessment Muscle Tone WNL Yes M9 OT- IP Assessment and Plan Start: 01/15/20 15:02 Freq: Status: Active Protocol: Document 01/17/20 09:01 [facility] (Rec: 01/17/20 11:56 [facility] [id number]) OT Summary Assessment and Plan Potential Rehabilitation Potential Good Analytic Complexity at Evaluation Low Summary OT Impairments Pain,Balance,Functional Mobility,Grooming,Dressing, Toileting,Bathing,Toilet Transfers,Shower Transfers, Activity Tolerance Progress Towards Goals Slow Progress due to Activity Tolerance,Slow Progress due to Cognition Assessment Summary Pt looking to go to skilled rehab today. Pt able to do most of his brace management today after some modification of his back brace. Goals Grooming Goal Independent Dressing Goal Independent Toileting Goal Independent Bathing Goal Independent Toilet Transfer Goal Independent Shower Transfer Goal Independent Patient/Caregiver Education Goal Demonstrate Post-Op Precautions Days to Meet Goals 18 Frequency of Treatment Frequency Of Treatment Once a Day Treatment Plan OT Treatment Plan ADL Training,Functional Cognition Training,Functional Mobility,Patient/Family Education,Discharge Planning Other Treatment Recommendations and Next SLUMS if still here Treatment Focus Discharge Recommendations OT Discharge Recommendations SNF Rehab Home Equipment Needs defer to skilled rehab Transportation Needs at Discharge Wheelchair/Cabulance
[2020-01-17 11:21] LABS: COVID19 -Nasal RAPID Negative (Negative)
[2020-01-17 11:32] VITALS: BP 181/87; PULSE 72; RESP 16; TEMP 36.3; O2SAT 98
--- NOTE | 2020-01-17 13:50 | PM.DS.1 ---
History of Present Illness History of Present Illness Date Patient Seen: 01/12/20 Chief complaint: fever / back pain Narrative: Written by Tremayne MENDOZA: Mr. Aman chu is a 69-year-old male patient with a past medical history significant for CAD status post coronary artery bypass grafting, CVA with residual right leg numbness on anticoagulation with long-term anticoagulation with Xarelto, bladder cancer status post cystectomy with formation of neobladder (03/2019) type 2 diabetes, hypertension and hyperlipidemia who presents to the ER with complaints of fevers back pain and dark colored urine. Patient states his symptoms began approximately 1 week ago. The patient is visiting from [facility] and was staying on his boat and [place] who presented to [facility] where he was admitted from [id number] with complaints of increasing back pain for 2 weeks. Discharge diagnoses from [facility] include lumbar back pain-musculoskeletal back spasms, constipation, bladder cancer with neobladder with an enlarged pelvic lymph node, finding of coronary bypass pseudoaneurysm and hyponatremia.. He describes continuing pain worsening with movement without any history of trauma and denies radiculopathy. He presents today complaining of inability to move secondary to the severity of pain and development of dark foul-smelling urine and a fever today. Denies complaints of headaches or dizziness sore throat or nasal congestion. He denies COVID-19 exposures. He denies complaints of chest pain or palpitations, shortness of breath cough or wheezing. Patient experience nausea and vomiting following taking oxycodone and tramadol but no persistent symptoms, last bowel movement was 6 days ago. Patient states he is continent of urine but uses a diaper at night. Upon arrival the ER the patient had a temperature of 100.6?, heart rate of 75, blood pressure 193/90, respiratory rate of 24 with an oxygen saturation 96% on room air. His pain at that time was 8/10. CT of the abdomen and pelvis is obtained finding normal solid organs describes both kidneys being normal in size enhancement with mild bilateral hydronephrosis more prominent on the left with dilation of bilateral renal collecting system and ureters anastomosed to a neobladder, small segment prominent small bowel adjacent to the neobladder concerning for possible ileus or partial obstruction without proximal small bowel dilation, moderate distention of the colon with air fecal material with decompression of the distal descending colon no evidence for distal colonic obstruction. On laboratory analysis the patient has elevated white count at 14.2 with mild left shift, hemoglobin of 11.6, hematocrit of 35.1, platelets 346. He has an MCV of 78 and MCH of 25.7. His PT is 14.5 with an INR 1.3 and a PTT of 30. He is hyponatremic with a sodium of 125 chloride 93 potassium of 4.4 with a BUN of 20 and creatinine 0.78. Nonfasting glucose is 105. His liver functions are all within normal range with lipase of 56 and albumin of 3.8. His procalcitonin is 0.06. Urine sample is obtained which shows trace protein, 3+ blood, positive nitrates and WBCs, trace leukocyte esterase and many bacteria. Samples reflex to culture. COVID-19 screening is negative. Medical records are obtained from [facility] [place] which demonstrates findings on 01/10/2020: WBCs 9.8, hemoglobin 13.2 and hematocrit 40.7, Sodium 125, potassium 4.6, chloride 93, BUN of 17. In the ER the patient received 1 g of Rocephin, 1 L normal saline normal saline 250 cc/hour. He received hydromorphone 0.[address] Verdin general surgery is contact to the emergency department who has agreed to consult. Patient is admitted to the medicine service for UTI, possible bowel obstruction versus ileus and hyponatremia. Discharge Providers Provider Date of admission: 01/12/20 22:02 Discharge Date: 01/17/20 Primary care physician: Royer Oro MD Consults: 01/12/20 21:38 Consult to General Surgery Stat Comment: Consulting Provider: Victorino Verdin Reason for consultation: small bowel findings Has provider been notified: Yes 01/12/20 22:10 Consult to Discharge Planning Routine Comment: 01/13/20 00:51 Consult to Physical Therapy Evaluate & Treat Comment: Acute right lumbar back pain Physician Instructions: Evaluate and Treat 01/13/20 00:52 Consult to Occupational Therapy Evaluate & Treat Comment: Acute right lumbar back pain Physician Instructions: Evaluate and treat 01/13/20 10:12 Consult to Physical Therapy Evaluate & Treat Comment: Physician Instructions: Evaluate and Treat 01/14/20 07:50 Consult to Orthopedic Surgery Routine Comment: Consulting Provider: Clover Vizcarra Reason for consultation: Severe back pain, multilevel stenosis Has provider been notified: Yes 01/14/20 15:30 Consult to Physician Routine Comment: Consulting Provider: Sanjeev Camacho Reason for consultation: Lumbar stenosis, severe back pain Has provider been notified: Yes Discharge provider: Niki Vieira DO Summary Hospital Course Discharge Diagnosis: 1. Acute Enterococcus UTI and bacteremia, present on admission. Resolving. 2. Acute lumbar back pain, present on admission. Improving. 3. Acute abdominal pain with small-bowel and colon ileus, present on admission. Improving. 4. Hyponatremia, acuity unclear but possibly chronic, present on admission. Stable. 5. Hypertension, chronic, present on admission. Stable. 6. CAD status post CABG, PVD status post stenting x9, and previous CVA on Xarelto, chronic, present on admission. Stable. 7. Microcytic hypochromic anemia, chronic, present on admission. Stable.. Hospital Course: Aman Chu is a 69-year-old male with a past medical history significant for CAD status post coronary artery bypass grafting, CVA with residual right leg numbness on anticoagulation with Xarelto, hypertension, hyperlipidemia, diabetes mellitus type 2, non-insulin using and diet-controlled, bladder cancer status post cystectomy with formation of neobladder (03/2019) who presented to the ED with fever, dark colored urine and persistent intractable lumbar back pain. 1. Acute Enterococcus UTI and bacteremia, present on admission. Resolving. -Patient reports no history of urinary colonization secondary to his neobladder. Patient presented with dark colored and foul-smelling urine with fevers. -Urine and blood culture in 4:4 bottles grew Enterococcus faecalis sensitive to ampicillin. Repeat blood cultures from 01/15 have no growth to date and likely cleared blood stream. -Initial WBC 14.2 and trending down now 11.2. Procalcitonin negative. Continue to monitor WBC daily. -Received ceftriaxone 1 g IV x1 in ED. Continued Zosyn 3.375 g every 8 hours pending urine and blood culture identification and sensitivities then switched to ampicillin 2 g IV every 4 hours and switched to PO at discharge for 10 additional days to complete 14 days total. 2. Acute lumbar back pain, present on admission. Improving. -Patient has been taking oxycodone and tramadol for back pain per [facility] [place] and was prescribed diazepam 5 mg every 6 hours as needed for back spasms on discharge. -No radiculopathy, saddle anesthesia, bowel or bladder incontinence, or signs of cauda equine syndrome. -MR lumbar spine demonstrated significant multilevel degenerative changes, multilevel severe foraminal narrowing with canal compression secondary to disc bulge with contributing affective facet/ligamentum flavum arthropathy, and multilevel foraminal narrowing most severe at L5-S1 with mild flattening of the exiting nerve roots bilaterally, right greater than left predominantly secondary to facet arthropathy with contributing effect of retrolisthesis. -Patient unable to take NSAIDs due to Xarelto therapy and also want to avoid glucocorticoids due to concurrent blood and urine infection. -Continued pain control with acetaminophen 650 mg every 6 hours, methocarbamol 750 mg 4 times daily as needed for muscle spasm, lidocaine patch daily, oxycodone 5-10 mg every 4 hours as needed for moderate pain and gabapentin 300 mg 3 times daily for neuropathy. Discontinued IV narcotic and diazepam to avoid over sedation. -Continued physical therapy and occupational therapy evaluation and treatment. -Consulted orthopedic surgery, Dr. Vizcarra, who recommended conservative management including: pain control, mobilization and trial of TSLO back brace as tolerated. Consulted physiatry, Dr. Camacho, for possible ALEJANDRO which may be possibility in the future as an outpatient once infection has been completely treated and resolved. 3. Acute abdominal pain with small-bowel and colon ileus, present on admission. Improving. -Patient with history of multiple abdominal surgeries including cystectomy and prostatectomy for bladder cancer and creation of neobladder. Patient presented with constipation x 6 days likely secondary to opiate use for acute back pain. -CT abdomen and pelvis with contrast demonstrated distended bowel adjacent to neobladder, as well as colonic dilation with fluid and air without obvious evidence of obstruction. -Repeat abdominal series demonstrates unchanged ileus. -Consulted general surgery, Dr. Verdin, who recommended treatment of UTI, daily suppository to stimulate colonic function with bowel regimen, limit of PO intake, and IV fluid hydration. Discussed case again with general surgery, Dr. Murry on 01/[address] Cochran 01/16 day of discharge who does not see any signs of obvious bowel obstruction on abdominal films and continue to recommend strict bowel regimen, mobilization, limit narcotics, and treatment of UTI. -Patient continues to have bowel movements with suppository use and bowel regimen. Continue strict bowel regimen with colace 100 mg daily, miralax 17 g daily and a daily suppository. 4. Hyponatremia, acuity unclear but possibly chronic, present on admission. Stable. -Unclear acuity of hyponatremia but patient had hyponatremia in the 120s at [facility]. -Initial sodium level 125. Sodium level stable at 128. -Patient is asymptomatic and is alert and oriented without cognitive impairment. -Received 1 L of normal saline in ED. Continued intermittent IV fluids to treat ileus and hyponatremia. Encouraged PO fluid intake. 5. Hypertension, chronic, present on admission. Stable. -Patient with intermittent elevated blood pressure due to pain response and continue to optimize pain control as above. -Continued home carvedilol 12.5 mg twice daily, cilostazol 100 mg twice daily, diltiazem 120 mg daily, and valsartan 80 mg daily. Ordered hydralazine 10 mg IV every 6 hours as needed for SBP > 180 mmHg or diastolic > 100 mmHg. 6. CAD status post CABG, PVD status post stenting x9, and previous CVA on Xarelto, chronic, present on admission. Stable. -Patient denies complaints of chest pain, palpitations or shortness of breath. 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 -Continued home aspirin 81 mg daily, atorvastatin 40 mg daily at bedtime, carvedilol 12.5 mg twice daily, cilostazol 100 mg twice daily, diltiazem 120 mg daily, ezetimibe 10 mg daily, valsartan 80 mg daily and Xarelto 2.5 mg twice daily. Ordered hydralazine 10 mg IV every 6 hours as needed for SBP > 180 mmHg or diastolic > 100 mmHg. 7. Microcytic hypochromic anemia, chronic, present on admission. Stable.. -Previously diagnosed with iron deficiency anemia with improving course per records from [facility]. -No evidence of blood loss anemia including hematemesis, hematochezia or melena. Patient did have mild hematuria related to UTI. -Continued to monitor blood counts closely. Exam Vital Signs (past 8 hours): - 01/17/20 06:13 01/17/20 07:39 Temperature 97.7 F Pulse Rate 76 Respiratory Rate 14 Blood Pressure 155/79 H Pulse Oximetry 96 94 Oxygen Delivery Method Room Air Oxygen Flow Rate 0 Narrative Exam Narrative: General: Older male lying in bed and in no acute distress, well-developed, well-nourished, appropriately interactive. HEENT: Normocephalic, atraumatic. External ears without defect. Pupils equal, round, and reactive to light. Anicteric sclerae, moist conjunctivae, and no lid lag. Oropharynx free of erythema and cobble stoning with moist mucosa. Subtle residual right sided facial droop from previous CVA. Neck: Supple with full range of motion. No lymphadenopathy or thyromegaly. Cardiovascular: Regular rate and rhythm without murmurs, rubs, or gallops appreciated. Pulmonary: Clear to auscultation bilaterally without crackles, wheezes, or rhonchi. Normal respiratory effort with no use of accessory muscles. Abdomen: Soft, bowel sounds present, non-tender, mild to moderate abdominal distension. Back: Focal mild tenderness to palpation at L4-L5 level especially paraspinal musculature. Extremities: No clubbing, cyanosis, or edema. No radicular signs. Skin: Normal temperature, turgor, and texture; no rash, ulcers, or subcutaneous nodules appreciated. Neurological: Cranial nerves grossly intact. No saddle anesthesia, loss of bowel or bladder function or signs of cauda equine syndrome. Psychiatric: Normal mood and affect. Alert and oriented to person, place, and time. Objective Labs Result Diagrams: 01/16/20 09:20 01/17/20 05:20 Labs: Laboratory Results - last 24 hr 01/17/20 01/17/20 05:20 10:50 Sodium 127 L Potassium 3.9 Chloride 95 L Carbon Dioxide 28 BUN 13 Creatinine 0.68 Estimated GFR > 60.0 BUN/Creatinine Ratio 19.1 Glucose 109 Calcium 8.0 L COVID-19 PCR Negative Discharge Plan Discharge Plan Patient Disposition: SNF Transfer to: [facility] Under care of provider: director of operations support Discharge orders & Medications Prescriptions: New methocarbamol 500 mg Tablet 750 mg PO QID PRN (Reason: Muscle Spasm) Qty: 120 RF: 0 acetaminophen 325 mg Tablet 650 mg PO Q6HR Qty: 30 RF: 0 polyethylene glycol 3350 17 gram Powder In Packet 17 gm PO DAILY Qty: 30 RF: 0 bisacodyl 10 mg Suppository 10 mg OR DAILY Qty: 30 RF: 0 lidocaine 5 % Adhesive Patch,Medicated 1 ea topical BEDTIME Qty: 30 RF: 0 lidocaine 5 % Adhesive Patch,Medicated 1 ea topical DAILY Qty: 30 RF: 0 gabapentin [Neurontin] 300 mg Capsule 300 mg PO TID Qty: 90 RF: 0 oxycodone 5 mg Tablet 5 - 10 mg PO Q4HR PRN (Reason: Pain, Moderate (4-6)) Qty: 15 RF: 0 ampicillin 500 mg capsule 2 gram PO Q4H Qty: 248 RF: 0 Continued atorvastatin 40 mg Tablet 40 mg PO BEDTIME RF: 0 cilostazol 100 mg Tablet 100 mg PO BID RF: 0 carvedilol 12.5 mg Tablet 12.5 mg PO BID RF: 0 docusate calcium 240 mg Capsule 240 mg PO BID RF: 0 valsartan 80 mg Tablet 80 mg PO DAILY RF: 0 diltiazem HCl 120 mg Capsule,Extended Release 24hr 120 mg PO DAILY RF: 0 aspirin [Aspir-81] 81 mg Tablet,Delayed Release (Dr/Ec) 81 mg PO DAILY RF: 0 ezetimibe 10 mg Tablet 10 mg PO DAILY RF: 0 Xarelto 2.5 mg Tablet 2.5 mg PO BID RF: 0 Discontinued lidocaine [Lidoderm] 5 % Adhesive Patch,Medicated 1 patch TOPICAL DAILY RF: 0 diazepam 5 mg tablet 5 mg PO Q6HR PRN (Reason: Back Pain) RF: 0 acetaminophen 325 mg Capsule 650 mg PO Q4H PRN (Reason: Back Pain) RF: 0 Follow up/Referrals: Royer Oro MD [Primary Care Provider] - Diet/Activity/Treatments Diet: Diet as Tolerated, Carb-consistent/Diabetic, Low-fat, Low-sodium and Low-cholesterol Activity: Activity as tolerated with forward wheeled walker and physical and occupational therapy. Recommend aggressive mobilization. [facility] Reason for rehabilitation: Recovery r/t decondition Rehab type: Physical therapy and Occupational therapy Discharge Data Primary Care Provider: Royer Oro Discharges patient from system. Discharge Date/Time: 01/17/20 15:05 Quality VTE Deep Vein Thrombosis/Pulmonary Embolism Present on Admission: No
--- NOTE | 2020-01-17 14:31 | CM.DPNOTE ---
DC Note DC order in place by Dr Vieira, updated COVID test requested (rapid) and patient negative. Arranged w/c transport for p/u at 1500 to [facility], pt remains agreeable to plan. Faxed updated and signed med list and PASRR to [facility] +. Coordinated details today w/ Lavonne at [facility]. NAEL
== END 2020-01-17 15:05 | DRG 690 ==
LOC: ED 21:53 → AC 22:03
PROVIDERS: Emergency Medicine; Internal Medicine; Admitting Provider Nurse Practitioner Adult Health; Emergency Provider Emergency Medicine; Family Provider Family Medicine; PCP Family Medicine; Referring Provider Emergency Medicine; Visit Provider Nurse Practitioner Adult Health
DX: N39.0 Urinary tract infection, site not specified (principal); E87.1 Hypo-osmolality and hyponatremia; G95.29 Other cord compression; K56.7 Ileus, unspecified; R78.81 Bacteremia; M47.896 Other spondylosis, lumbar region; I25.10 Atherosclerotic heart disease of native coronary artery without angina pectoris; B95.2 Enterococcus as the cause of diseases classified elsewhere; I10 Essential (primary) hypertension; D64.89 Other specified anemias; I73.9 Peripheral vascular disease, unspecified; E78.5 Hyperlipidemia, unspecified; Z11.59 Encounter for screening for other viral diseases; Z95.1 Presence of aortocoronary bypass graft; Z85.51 Personal history of malignant neoplasm of bladder; Z87.891 Personal history of nicotine dependence; Z79.01 Long term (current) use of anticoagulants
CPT/HCPCS: 36415; 71045; 72158; 74022; 74177; 80048; 80053; 81001; 82962; 83036; 83605; 83690; 83735; 84145; 84439; 84443; 85025; 85610; 85730; 87040; 87077; 87086; 87150; 87185; 87186; 87205; 87635; 93005; 93010; 94760; 94762; 96361; 96365; 96375; 97116; 97162; 97165; 97530; 97535; 99232; 99233; 99284; J0290; J1170; J2543

== ENCOUNTER → 2020-01-20 14:22 | Outpatient (ROUT) | payer MEDICARE, OTHER, SELFPAY ==
[2020-01-12 22:38] VITALS: BMI 25.0
[2020-01-20 15:22] LABS: Clostridium Difficile Tox PCR Positive for C. diff
[2020-01-21 17:25] LABS: C difficie Toxins A and B, EIA Positive (Negative)
== END ==
PROVIDERS: Family Provider Family Medicine; PCP Family Medicine; Visit Provider Nurse Practitioner
DX: A04.72 Enterocolitis due to Clostridium difficile, not specified as recurrent (principal)
CPT/HCPCS: 87493